=== PATIENT | male | born 1950 | race Caucasian/White ===

== ENCOUNTER 2020-05-21 11:00 | Inpatient (IN) | payer MEDICARE, MEDICAID ==
[~2020-05-21] VITALS: Ht 175.3 cm; Wt 81.0 kg
--- NOTE | 2020-05-21 14:34 | NUR ---
[facility] Addendum: 05/21/20 at 1437 by Destini Solorzano RN Amended: Links added.
[2020-05-21 15:49] VITALS: BP 135/54
[2020-05-21] MEDS: normal saline 1000ml 1,000 ML IV SCH (16:31)
[2020-05-21] MEDS ORDERED: magnesium hydroxide 30ml (MOM) UD suspension PO PRN (17:15)
[2020-05-21] MEDS ORDERED: mag hydrox/Alum hydrox/simeth 30ml oral suspension PO PRN (17:15)
[2020-05-21] MEDS ORDERED: acetaminophen 325mg tablet PO PRN (17:15)
[2020-05-21] MEDS ORDERED: ondansetron/PF 4mg/2ml inj IV PRN (17:15)
[2020-05-21] MEDS: K and/or MAG REPLACEMENT MC SCH ×2 (17:30→20:00)
[2020-05-21] MEDS ORDERED: potassium Cl 20 mEq SR tablet PO PRN ×2 (17:30)
[2020-05-21] MEDS ORDERED: magnesium Cl slow-release 64mg tablet PO PRN (17:30)
[2020-05-21] MEDS ORDERED: magnesium 4gm in 100ml NS 100 ML IV PRN (17:30)
[2020-05-21] MEDS ORDERED: potassium CL 10mEq/100ml bag 100 ML IV PRN (17:30)
[2020-05-21] MEDS ORDERED: ALBU18HF2 IH (17:32)
[2020-05-21] MEDS ORDERED: AMOX500C4 PO (17:32)
[2020-05-21] MEDS ORDERED: AZIT-63 PO (17:32)
[2020-05-21] MEDS ORDERED: PANT40TA4 PO (17:32)
[2020-05-21] MEDS ORDERED: HYDR-3972 PO (17:32)
[2020-05-21] MEDS ORDERED: SUCR1TAB PO (17:32)
[2020-05-21] MEDS ORDERED: PRE5T PO (17:32)
[2020-05-21] MEDS ORDERED: CLAR500T22 PO (17:32)
[2020-05-21] MEDS ORDERED: FLUT1AER IH (17:32)
[2020-05-21 17:35] VITALS: BP 139/84
[2020-05-21 19:09] VITALS: BP 131/64
--- NOTE | 2020-05-21 19:26 | NUR ---
Pt on 3L O2. Began c/o shortness of breath. Sat straight up in bed, (pt tends to slouch over to one side continuously, even when eating), turned the O2 up to 5L, respiratory paged. O2 went from 87% on 3L to 95% on 5L. Will continue to monitor.
[2020-05-21] MEDS ORDERED: ipratropium/albuterol 3ml nebule ONE (20:24)
[2020-05-21] MEDS: ipratropium/albuterol 3ml nebule NEB SCH (20:26)
[2020-05-21] MEDS ORDERED: albuterol 2.5 MG/3 ML nebule NEB PRN (21:55)
[2020-05-21] MEDS ORDERED: methylPREDNISolone sod succ 125mg/2ml vial IV ONE (22:00)
[2020-05-21] MEDS: levoFLOXACIN-Levaquin 750MG/D5 150 ML IV SCH (22:20)
[2020-05-21] MEDS ORDERED: ipratropium/albuterol 3ml nebule NEB SCH (23:00)
[2020-05-22] VITALS: BP 145/78
[2020-05-22] MEDS: metroNIDAZOLE-Flagyl 500mg/NS 100 ML IV SCH ×3 (00:30→15:17)
--- NOTE | 2020-05-22 01:05 | NUR ---
NPO entered for possible surgical intervention.
--- NOTE | 2020-05-22 01:16 | NUR ---
Titrated O2 back down to 3L after previous episode of difficult breathing. Is now @ 3L (baseline) @ 93%.
[2020-05-22] MEDS: methylPREDNISolone sod succ 125mg/2ml vial IV SCH ×4 (01:42→20:18)
[2020-05-22] MEDS: normal saline 1000ml 1,000 ML IV SCH ×3 (01:42→22:15)
[2020-05-22] MEDS ORDERED: albuterol 2.5 MG/3 ML nebule NEB SCH (02:00)
[2020-05-22] MEDS: ipratropium/albuterol 3ml nebule NEB SCH ×6 (03:48→23:31)
[2020-05-22 05:33] LABS: PARTIAL THROMBOPLASTIN TIME 33 SECONDS (22-32)
[2020-05-22 05:40] LABS: ALBUMIN 2.5 G/DL (3.4-5.0); ANION GAP 6 (8-16); BLOOD UREA NITROGEN 7 MG/DL (7-18); BUN/CREATININE RATIO 8.5 (5.4-32.0); CALCIUM 8.5 MG/DL (8.5-10.1); CHLORIDE 107 MMOL/L (99-107); CREATININE 0.82 MG/DL (0.60-1.10); GLUCOSE 187 MG/DL (70-104); MAGNESIUM 2.3 MG/DL (1.5-2.4); PHOSPHORUS 3.4 MG/DL (2.3-4.5); POTASSIUM 4.1 MMOL/L (3.5-5.1); SODIUM 143 MMOL/L (135-145); TOTAL CARBON DIOXIDE 30.3 MMOL/L (24-32); eGFR > 90 ML/MIN
[2020-05-22 05:58] LABS: BASOPHILS % (AUTO) 0.2 % (0-1); EOSINOPHILS % (AUTO) 0.1 % (0-6); HEMATOCRIT 29.1 % (42.0-52.0); HEMOGLOBIN 9.1 g/dl (14.0-17.9); LYMPHOCYTES # (AUTO) 0.3 X10'3 (1.1-4.8); LYMPHOCYTES % (AUTO) 6.6 % (21-51); MEAN CORPUSCULAR HEMOGLOBIN 24.3 PG (27.0-31.0); MEAN CORPUSCULAR HGB CONC 31.2 g/dL (33.0-36.5); MEAN CORPUSCULAR VOLUME 77.8 FL (78-98); MEAN PLATELET VOLUME 7.3 FL (7.4-10.4); MONOCYTES # (AUTO) 0.1 X10'3 (0-0.9); MONOCYTES % (AUTO) 1.2 % (2-12); NEUTROPHILS # (AUTO) 4.4 X10'3 (1.8-7.7); NEUTROPHILS % (AUTO) 91.9 % (42-75); PLATELET COUNT 387 X10'3 (140-440); RED BLOOD COUNT 3.73 X10'6 (4.70-6.10); RED CELL DISTRIBUTION WIDTH 28.1 % (11.5-14.5); WHITE BLOOD COUNT 4.8 X10'3 (4.5-11.0)
--- NOTE | 2020-05-22 06:04 | NUR ---
Problems reprioritized. Patient report given, questions answered & plan of care reviewed with PHYLLIS Georges.
[2020-05-22 07:00] VITALS: BP 139/84
[2020-05-22 07:06] LABS: ANISOCYTOSIS 3+; MICROCYTOSIS 1+; PLATELET ESTIMATE NORMAL
[2020-05-22 07:07] LABS: ELLIPTOCYTES FEW
[2020-05-22] MEDS: budesonide 0.5mg/2ml UD nebule IH SCH ×2 (07:18→19:59)
[2020-05-22 07:27] VITALS: BP 139/84
[2020-05-22] MEDS: pantoprazole 40 MG vial IV SCH (07:41)
[2020-05-22] MEDS: levoFLOXACIN-Levaquin 750MG/D5 150 ML IV SCH (07:49)
[2020-05-22] MEDS ORDERED: non-formulary drug (Fluticasone/Vilanterol (Breo Ellipta 100-25 Mcg INH) 1 PUFF) IH SCH (08:00)
[2020-05-22] MEDS: heparin, porcine 5000 units/ml vial SQ SCH ×2 (08:00)
[2020-05-22] MEDS: K and/or MAG REPLACEMENT MC SCH ×2 (08:50→20:00)
[2020-05-22 11:00] VITALS: BP 142/82
--- NOTE | 2020-05-22 18:23 | NUR ---
Patient in room [facility] 348. I have received report from Janeen FERGUSON and had the opportunity to ask questions and assume patient care.
--- NOTE | 2020-05-22 18:39 | NUR ---
Gave report to Lanny FERGUSON.
[2020-05-22 20:00] VITALS: BP 115/67
[2020-05-23] VITALS: BP 142/80
[2020-05-23] MEDS: normal saline 1000ml 1,000 ML IV SCH ×2 (02:57→13:03)
[2020-05-23] MEDS: ipratropium/albuterol 3ml nebule NEB SCH ×5 (04:57→19:46)
[2020-05-23 05:59] LABS: BASOPHILS % (AUTO) 0.1 % (0-1); EOSINOPHILS % (AUTO) 0 % (0-6); HEMATOCRIT 24.9 % (42.0-52.0); HEMOGLOBIN 7.9 g/dl (14.0-17.9); LYMPHOCYTES # (AUTO) 0.4 X10'3 (1.1-4.8); LYMPHOCYTES % (AUTO) 5.4 % (21-51); MEAN CORPUSCULAR HEMOGLOBIN 24.4 PG (27.0-31.0); MEAN CORPUSCULAR HGB CONC 31.7 g/dL (33.0-36.5); MEAN CORPUSCULAR VOLUME 76.9 FL (78-98); MEAN PLATELET VOLUME 7.3 FL (7.4-10.4); MONOCYTES # (AUTO) 0.3 X10'3 (0-0.9); NEUTROPHILS # (AUTO) 7.2 X10'3 (1.8-7.7); NEUTROPHILS % (AUTO) 90.5 % (42-75); PLATELET COUNT 371 X10'3 (140-440); RED BLOOD COUNT 3.23 X10'6 (4.70-6.10); RED CELL DISTRIBUTION WIDTH 27.7 % (11.5-14.5); WHITE BLOOD COUNT 7.9 X10'3 (4.5-11.0)
[2020-05-23 06:06] LABS: ALBUMIN 2.4 G/DL (3.4-5.0); ANION GAP 7 (8-16); BLOOD UREA NITROGEN 17 MG/DL (7-18); BUN/CREATININE RATIO 22.1 (5.4-32.0); CALCIUM 8.5 MG/DL (8.5-10.1); CHLORIDE 106 MMOL/L (99-107); CREATININE 0.77 MG/DL (0.60-1.10); GLUCOSE 175 MG/DL (70-104); MAGNESIUM 2.2 MG/DL (1.5-2.4); PHOSPHORUS 2.5 MG/DL (2.3-4.5); POTASSIUM 3.9 MMOL/L (3.5-5.1); SODIUM 141 MMOL/L (135-145); TOTAL CARBON DIOXIDE 28.5 MMOL/L (24-32); eGFR > 90 ML/MIN
--- NOTE | 2020-05-23 06:30 | NUR ---
Patient in room [facility] 348. I have received report from PHYLLIS Ca and had the opportunity to ask questions and assume patient care.
--- NOTE | 2020-05-23 06:45 | NUR ---
Problems reprioritized. Patient report given, questions answered & plan of care reviewed with Cecy FERGUSON.
[2020-05-23 07:14] LABS: ANISOCYTOSIS 3+; BURR CELLS 1+; MICROCYTOSIS 1+; PLATELET ESTIMATE NORMAL
[2020-05-23 07:15] LABS: ELLIPTOCYTES FEW; HYPOCHROMASIA 1+; SCHISTOCYTES FEW
[2020-05-23 07:21] VITALS: BP 126/73
[2020-05-23] MEDS: pantoprazole 40 MG vial IV SCH (07:55)
[2020-05-23] MEDS: predniSONE 20 mg tablet PO SCH (07:55)
[2020-05-23] MEDS: K and/or MAG REPLACEMENT MC SCH ×2 (08:00→21:39)
[2020-05-23] MEDS: budesonide 0.5mg/2ml UD nebule IH SCH ×2 (08:23→19:46)
[2020-05-23 11:00] VITALS: BP 130/62
[2020-05-23] MEDS: levoFLOXACIN 500mg tablet PO SCH (11:30)
[2020-05-23] MEDS ORDERED: ringers solution, lacted 1,000 ML IV ONE (17:32)
--- NOTE | 2020-05-23 18:28 | NUR ---
Problems reprioritized. Patient report given, questions answered & plan of care reviewed with PHYLLIS Shea.
--- NOTE | 2020-05-23 18:30 | NUR ---
Patient in room [facility] 348. I have received report from EL FERGUSON and had the opportunity to ask questions and assume patient care.
[2020-05-23 20:00] VITALS: BP 142/90
[2020-05-23] MEDS: potassium CL 20mEq in D5-1/2NS 1,000 ML IV SCH (21:35)
--- NOTE | 2020-05-23 23:01 | NUR ---
Pt sig other keeps calling patient several times, Pt states she is "calling him a liar" pt states he is hanging up on her, but will talk to her one more time. She called nurses station again and asked for call to be transferred to room. Addendum: 05/23/20 at 2303 by Samira Pratt RN Amended: Links added.
[2020-05-24] VITALS (14 sets, daily range): BP systolic 88–146; BP diastolic 61–88
[2020-05-24] MEDS: ipratropium/albuterol 3ml nebule NEB SCH ×7 (00:01→22:58)
[2020-05-24] MEDS: potassium CL 20mEq in D5-1/2NS 1,000 ML IV SCH ×2 (05:01→16:25)
[2020-05-24 05:36] LABS: BASOPHILS % (AUTO) 0 % (0-1); EOSINOPHILS % (AUTO) 0 % (0-6); HEMATOCRIT 25.5 % (42.0-52.0); HEMOGLOBIN 7.6 g/dl (14.0-17.9); LYMPHOCYTES # (AUTO) 0.5 X10'3 (1.1-4.8); LYMPHOCYTES % (AUTO) 4.3 % (21-51); MEAN CORPUSCULAR HEMOGLOBIN 23.2 PG (27.0-31.0); MEAN CORPUSCULAR HGB CONC 29.9 g/dL (33.0-36.5); MEAN CORPUSCULAR VOLUME 77.7 FL (78-98); MEAN PLATELET VOLUME 7.5 FL (7.4-10.4); MONOCYTES % (AUTO) 8.7 % (2-12); NEUTROPHILS # (AUTO) 10.2 X10'3 (1.8-7.7); PLATELET COUNT 402 X10'3 (140-440); RED BLOOD COUNT 3.28 X10'6 (4.70-6.10); RED CELL DISTRIBUTION WIDTH 28.2 % (11.5-14.5); WHITE BLOOD COUNT 11.8 X10'3 (4.5-11.0)
[2020-05-24 05:47] LABS: ALBUMIN 2.4 G/DL (3.4-5.0); ANION GAP 2 (8-16); BLOOD UREA NITROGEN 15 MG/DL (7-18); BUN/CREATININE RATIO 20.5 (5.4-32.0); CALCIUM 8.5 MG/DL (8.5-10.1); CHLORIDE 108 MMOL/L (99-107); CREATININE 0.73 MG/DL (0.60-1.10); GLUCOSE 171 MG/DL (70-104); MAGNESIUM 2.5 MG/DL (1.5-2.4); PARTIAL THROMBOPLASTIN TIME 28 SECONDS (22-32); PHOSPHORUS 2.4 MG/DL (2.3-4.5); POTASSIUM 4.4 MMOL/L (3.5-5.1); SODIUM 141 MMOL/L (135-145); TOTAL CARBON DIOXIDE 31.3 MMOL/L (24-32); eGFR > 90 ML/MIN
[2020-05-24] MEDS ORDERED: famotidine 20mg tablet PO ONE (06:00)
--- NOTE | 2020-05-24 06:08 | NUR ---
Problems reprioritized. Patient report given, questions answered & plan of care reviewed with EL FERGUSON.
--- NOTE | 2020-05-24 06:09 | NUR ---
Patient in room [facility] 348. I have received report from PHYLLIS Shea and had the opportunity to ask questions and assume patient care.
[2020-05-24] MEDS ORDERED: BUPIVAcaine/PF 2.5 mg/ml (0.25%) 30ml vial ONE (06:37)
[2020-05-24] MEDS ORDERED: LIDOcaine 1% 30ml preserv. free vial ONE (06:37)
[2020-05-24] MEDS: budesonide 0.5mg/2ml UD nebule IH SCH ×2 (07:05→18:53)
[2020-05-24] MEDS ORDERED: LIDOcaine 1% (10mg/ml) 2ml vial ONE (07:20)
[2020-05-24 07:32] LABS: ANISOCYTOSIS 3+; MICROCYTOSIS 1+; PLATELET ESTIMATE NORMAL
[2020-05-24 07:33] LABS: HYPOCHROMASIA 2+
[2020-05-24] MEDS: pantoprazole 40 MG vial IV SCH (07:46)
[2020-05-24] MEDS: predniSONE 20 mg tablet PO SCH (07:46)
[2020-05-24] MEDS: K and/or MAG REPLACEMENT MC SCH ×2 (08:00→20:00)
[2020-05-24] MEDS ORDERED: BUPIVAcaine/PF 2.5 mg/ml (0.25%) 30ml vial IJ ONE (08:18)
--- NOTE | 2020-05-24 09:07 | NUR ---
Report given to Marjorie in recovery, Pt to be tx to OR.
[2020-05-24] MEDS ORDERED: ringers solution, lacted 1,000 ML IV SCH ×2 (09:41→15:04)
[2020-05-24] MEDS ORDERED: morphine 2 MG/ML inj. syringe IV PRN (09:45)
[2020-05-24] MEDS ORDERED: fentaNYL/PF 50MCG/1 ML 2ML syringe IV PRN ×2 (09:45)
[2020-05-24] MEDS ORDERED: hydrALAZINE 20mg/ml inj. IV PRN (09:45)
[2020-05-24] MEDS ORDERED: morphine 4 MG/ML inj SYRINge IV PRN (09:45)
[2020-05-24] MEDS ORDERED: ondansetron/PF 4mg/2ml inj IV PRN ×3 (09:45→18:05)
[2020-05-24] MEDS ORDERED: labetalol 20mg/4ml (5mg/ml) syringe IV PRN (09:45)
[2020-05-24] MEDS ORDERED: MIDAZolam 5mg/5ml vial ONE (09:49)
[2020-05-24] MEDS ORDERED: ondansetron/PF 4mg/2ml inj ONE (09:50)
[2020-05-24] MEDS ORDERED: rocuronium 10mg/ml inj IV ONE ×4 (09:50→16:41)
[2020-05-24] MEDS ORDERED: fentaNYL /PF 50mcg/ml 5ml ampule ONE (09:50)
[2020-05-24] MEDS ORDERED: LIDOcaine 2% (20mg/ml) 5ml vial ONE (09:50)
[2020-05-24] MEDS ORDERED: propofol inj 20 ML IV ONE (09:50)
[2020-05-24] MEDS ORDERED: phenylephrine 10mg/ml inj. ONE ×2 (09:59→11:49)
[2020-05-24] MEDS ORDERED: glycopyrrolate 0.2mg/ml inj ONE (09:59)
[2020-05-24] MEDS ORDERED: dexamethasone sod phosphate 10mg/ml inj ONE (09:59)
[2020-05-24] MEDS ORDERED: neostigmine methylsulfate 1 MG/ML 10ml vial ONE (09:59)
[2020-05-24] MEDS ORDERED: sevoflurane 250ml liquid IH ONE (09:59)
[2020-05-24] MEDS ORDERED: albumin (Human) 5% 250ml 250 ML IV ONE ×4 (10:55→13:24)
[2020-05-24] MEDS: levoFLOXACIN 500mg tablet PO SCH (11:00)
[2020-05-24] MEDS ORDERED: ceFAZolin 1000mg inj ONE ×2 (11:01)
--- NOTE | 2020-05-24 11:20 | NUR ---
Pt under care of OR/Recovery and will be reassigned a floor nurse at completion when determined level of care needed.
--- NOTE | 2020-05-24 11:58 | NUR ---
Unable to administer SVN tx. Patient in surgery
[2020-05-24] MEDS ORDERED: fentaNYL/PF 50MCG/1 ML 2ML syringe ONE (13:22)
[2020-05-24] MEDS ORDERED: insulin regular, human U-100 3ml vial - multi-dose ONE (14:42)
[2020-05-24 14:45] LABS: ISTAT ANION GAP 10 (8-12); ISTAT BUN 15 mg/dL (6-19); ISTAT CL 102 mmol/L (99-107); ISTAT CREATININE 0.7 mg/dL (0.8-1.3); ISTAT GLUCOSE 271 mg/dL (70-104); ISTAT HGB 7.8 g/dl (14.0-18.0); ISTAT Hct 23 %PCV (42-52); ISTAT IONIZED CALCIUM 1.16 mmol/L (1.03-1.32); ISTAT K 4.9 mmol/L (3.5-5.1); ISTAT NA 137 mmol/L (135-145); ISTAT TOTAL CO2 25 mmol/L (24-32); ISTAT eGFR > 90 ML/MIN; POC BUN/CREATININE RATIO 21.4 (5.4-32.0)
[2020-05-24] MEDS: NORepinephrine 8mg/ 250ml NS 250 ML IV SCH ×2 (15:05→21:31)
[2020-05-24] MEDS ORDERED: NORepinephrine 8 MG in NS 250ml IV soln IV SCH (15:20)
[2020-05-24] MEDS ORDERED: MIDAZolam inj 50 MG in normal saline 50ml IV soln 40 ML IV SCH (15:55)
--- NOTE | 2020-05-24 16:16 | NUR ---
1500 SVN Treatment not given. Patient in surgery.
[2020-05-24] MEDS ORDERED: ceFOXitin 1000 MG inj ONE (16:49)
--- NOTE | 2020-05-24 17:53 | NUR ---
Received from OR via ICU BED AND IN THE ICU, accompanied by Anesthesiologist LORIN and report given by Anesthesiolgist. PATIENT INTUBATED WITH 2 CHEST TUBES PRESENT, LEFT CHEST TUBE IS WITH 500CC OF BLOOD IN ATRIUM AND RIGHT CHEST TUBE WITH NONE. TRIPLE LUMEN CENTRAL LINE PRESENT, LESTER WITH CLEAR YELLOW URINE PRESENT IN ATRIUM UROSTOMY TUBE. PATIENT WITH FRANCISCA DRAIN TO ABDOMEN WELL. ART LINE IN RIGHT UE. SCDS DONNED. VENTILATED. VSS AT THIS TIME. RNX2 PRESENT TO ASSIST IN SET UP OF PATIENT. Addendum: 05/24/20 at 1820 by Evangelist Brown RN, RN Amended: Links added. Addendum: 05/24/20 at 1821 by Evangelist Brown RN, RN ADDENDUM. LESTER CATHETER IN PLACE, PEG TUBE TO ABDOMEN PRESENT NOT UROSTOMY TUBE.
[2020-05-24] MEDS ORDERED: naloxone 0.4 mg/ml inj IV PRN (18:05)
[2020-05-24] MEDS: HYDROmorphone/NS 1 mg/ml CADD 50 ML IV SCH ×4 (18:05→23:00)
[2020-05-24] MEDS ORDERED: CADD PCA waste documentation MC PRN (18:05)
[2020-05-24 18:20] LABS: ABG BASE EXCESS -3.6 mmol/L (-2.0-2.0); ABG HCO3 22.6 mmol/L (22.0-26.0); ABG OXYGEN SATURATION 99.4 % (94-97); ABG PCO2 (T) 43.5 mmHg (35.0-48.0); ABG PO2 (T) 262.4 mmHg (75.0-100.0); FCOHb 0.4 % (0.0-3.9); FMetHb 0.2 % (0.0-1.5); FO2Hb 98.8 % (94-97); PATIENT TEMPERATURE 35.6; PEEP 5 cm H2O; RESPIRATORY RATE 12 b/min; TIDAL VOLUME 650 mL; TOTAL HEMOGLOBIN 9.5 G/dl (14.0-18.0)
--- NOTE | 2020-05-24 18:33 | NUR ---
PATIENTS PHYLLIS MOURA PRESENT TO HEAR REPORT FROM MD PADGETT. VSS AT THIS TIME. ALL LINES STILL INTACT AT THIS TIME. INTUBATED. ABGS DONE, RT ADJUSTED VENT SETTINGS. CHEST TUBES MAINTAIN SAME AMOUNTS OF DRAINAGE, LEFT WITH APPROXIMATELY 550 CC IN ATRIUM AND RIGHT SIDE HAS NO PRESENT DRAINAGE. PATIENT CENTRAL LINE TO RIGHT OF NECK IS PATENT AND ART LINE AND 20G PIV IN RIGHT UE ARE ALSO PATENT AND RUNNING SEDATION AND PAIN MEDS. SCDS DONNED, PEG TUBE INTACT. FRANCISCA TO ABDOMEN STILL WITH SEROSANGUENOUS DRAINAGE PRESENT AND BULB IS MAINTAINING SUCTION. CARE TURNED OVER TO ZENY FERGUSON IN THE ICU. Addendum: 05/24/20 at 1839 by Evangelist Cruz - PHYLLIS RN Amended: Links added.
[2020-05-24] MEDS: lactobacillus rhamnosus 10,000 MMU CELLS/CAPSULE PO SCH (19:39)
[2020-05-24] MEDS: levoFLOXACIN-Levaquin 500mg/D5 100 ML IV SCH (21:12)
[2020-05-24 21:49] LABS: HEMATOCRIT 29.5 % (42.0-52.0); HEMOGLOBIN 9.2 g/dl (14.0-17.9); MEAN CORPUSCULAR HEMOGLOBIN 24.3 PG (27.0-31.0); MEAN CORPUSCULAR HGB CONC 31.1 g/dL (33.0-36.5); MEAN CORPUSCULAR VOLUME 78.2 FL (78-98); MEAN PLATELET VOLUME 7.5 FL (7.4-10.4); PLATELET COUNT 513 X10'3 (140-440); RED BLOOD COUNT 3.77 X10'6 (4.70-6.10); RED CELL DISTRIBUTION WIDTH 27.7 % (11.5-14.5)
[2020-05-24 21:59] LABS: ALBUMIN 2.5 G/DL (3.4-5.0); ANION GAP 8 (8-16); BLOOD UREA NITROGEN 22 MG/DL (7-18); BUN/CREATININE RATIO 16.8 (5.4-32.0); CALCIUM 7.4 MG/DL (8.5-10.1); CHLORIDE 106 MMOL/L (99-107); CREATININE 1.31 MG/DL (0.60-1.10); GLUCOSE 232 MG/DL (70-104); POTASSIUM 5.9 MMOL/L (3.5-5.1); SODIUM 138 MMOL/L (135-145); TOTAL CARBON DIOXIDE 23.6 MMOL/L (24-32); eGFR 54 ML/MIN
[2020-05-25] VITALS (23 sets, daily range): BP systolic 93–122; BP diastolic 60–87
[2020-05-25] MEDS: HYDROmorphone/NS 1 mg/ml CADD 50 ML IV SCH ×4 (01:00→07:00)
[2020-05-25] MEDS: potassium CL 20mEq in D5-1/2NS 1,000 ML IV SCH (02:25)
[2020-05-25] MEDS: ipratropium/albuterol 3ml nebule NEB SCH ×6 (02:59→22:58)
[2020-05-25 03:07] LABS: BASOPHILS % (AUTO) 0.1 % (0-1); EOSINOPHILS % (AUTO) 0 % (0-6); HEMATOCRIT 31.1 % (42.0-52.0); HEMOGLOBIN 9.5 g/dl (14.0-17.9); LYMPHOCYTES # (AUTO) 0.4 X10'3 (1.1-4.8); LYMPHOCYTES % (AUTO) 4.5 % (21-51); MEAN CORPUSCULAR HGB CONC 30.5 g/dL (33.0-36.5); MEAN CORPUSCULAR VOLUME 78.9 FL (78-98); MEAN PLATELET VOLUME 7.8 FL (7.4-10.4); MONOCYTES # (AUTO) 1.3 X10'3 (0-0.9); NEUTROPHILS # (AUTO) 6.7 X10'3 (1.8-7.7); NEUTROPHILS % (AUTO) 80.4 % (42-75); PLATELET COUNT 431 X10'3 (140-440); RED BLOOD COUNT 3.94 X10'6 (4.70-6.10); RED CELL DISTRIBUTION WIDTH 27.8 % (11.5-14.5); WHITE BLOOD COUNT 8.3 X10'3 (4.5-11.0)
[2020-05-25 03:16] LABS: ABG HCO3 20.5 mmol/L (22.0-26.0); ABG OXYGEN SATURATION 98.2 % (94-97); ABG PCO2 (T) 35.3 mmHg (35.0-48.0); ABG PO2 (T) 115.1 mmHg (75.0-100.0); FCOHb 0.7 % (0.0-3.9); FMetHb 0.3 % (0.0-1.5); FO2Hb 97.2 % (94-97); PATIENT TEMPERATURE 37.2; PEEP 10 cm H2O; RESPIRATORY RATE 12 b/min; TIDAL VOLUME 650 mL; TOTAL HEMOGLOBIN 10.4 G/dl (14.0-18.0)
[2020-05-25] MEDS ORDERED: dextrose ORAL solution 15 GM/59 ML bottle PO PRN ×2 (03:25)
[2020-05-25] MEDS ORDERED: glucagon, human recombinant 1mg kit SUBCUT PRN (03:25)
[2020-05-25] MEDS ORDERED: MESSAGE TO PHARMACY PO ONE (03:25)
[2020-05-25 03:30] LABS: ALANINE AMINOTRANSFERASE 58 U/L (12-78); ALBUMIN 2.3 G/DL (3.4-5.0); ALBUMIN/GLOBULIN RATIO 0.8 (1.1-1.5); ALKALINE PHOSPHATASE 36 IU/L (46-116); ANION GAP 6 (8-16); ASPARTATE AMINO TRANSFERASE 52 U/L (10-37); BILIRUBIN,DIRECT 0.3 MG/DL (0-0.3); BILIRUBIN,TOTAL 0.6 MG/DL (0.1-1.0); BLOOD UREA NITROGEN 26 MG/DL (7-18); BUN/CREATININE RATIO 15.3 (5.4-32.0); CALCIUM 7.4 MG/DL (8.5-10.1); CHLORIDE 107 MMOL/L (99-107); GLUCOSE 213 MG/DL (70-104); MAGNESIUM 2.1 MG/DL (1.5-2.4); PHOSPHORUS 3.5 MG/DL (2.3-4.5); SODIUM 137 MMOL/L (135-145); TOTAL CARBON DIOXIDE 24.2 MMOL/L (24-32); TOTAL PROTEIN 5.1 G/DL (6.4-8.2); eGFR 40 ML/MIN
[2020-05-25 03:32] LABS: POTASSIUM 6.1 MMOL/L (3.5-5.1)
[2020-05-25] MEDS ORDERED: albuterol 2.5 MG/3 ML nebule CONTNEB STA (03:32)
[2020-05-25] MEDS ORDERED: calcium chloride 100 MG/1 ML inj IV ONE (03:35)
[2020-05-25] MEDS ORDERED: insulin regular, human 10 units/0.1 ml syringe IV ONE (03:35)
[2020-05-25] MEDS ORDERED: dextrose 50%-water 50ml dispensing syringe IV ONE ×2 (03:35→17:05)
[2020-05-25 03:38] LABS: PLATELET ESTIMATE NORMAL; TOTAL CELLS COUNTED 100
[2020-05-25 03:39] LABS: ACANTHOCYTES 1+; ANISOCYTOSIS 3+; ELLIPTOCYTES 1+; HYPOCHROMASIA 2+; MICROCYTOSIS 1+
[2020-05-25] MEDS ORDERED: insulin regular, human U-100 3ml vial - multi-dose IV ONE ×2 (03:45→17:05)
[2020-05-25] MEDS ORDERED: albumin (human) 25% 100 ML IV solution IV ONE (04:55)
[2020-05-25] MEDS ORDERED: dextrose 5%-1/2 normal saline 1,000 ML IV SCH (04:55)
[2020-05-25] MEDS: NORepinephrine 8mg/ 250ml NS 250 ML IV SCH ×5 (05:21→22:37)
[2020-05-25 06:29] LABS: ALBUMIN 2.7 G/DL (3.4-5.0); ANION GAP 9 (8-16); BLOOD UREA NITROGEN 29 MG/DL (7-18); BUN/CREATININE RATIO 15.3 (5.4-32.0); CALCIUM 7.9 MG/DL (8.5-10.1); CHLORIDE 107 MMOL/L (99-107); CREATININE 1.89 MG/DL (0.60-1.10); GLUCOSE 256 MG/DL (70-104); PHOSPHORUS 3.8 MG/DL (2.3-4.5); SODIUM 137 MMOL/L (135-145); TOTAL CARBON DIOXIDE 20.8 MMOL/L (24-32); eGFR 35 ML/MIN
[2020-05-25] MEDS: lactobacillus rhamnosus 10,000 MMU CELLS/CAPSULE PO SCH ×2 (07:28→20:00)
[2020-05-25] MEDS: K and/or MAG REPLACEMENT MC SCH ×2 (07:29→20:00)
[2020-05-25] MEDS: budesonide 0.5mg/2ml UD nebule IH SCH ×2 (07:53→18:58)
[2020-05-25] MEDS: levoFLOXACIN-Levaquin 500mg/D5 100 ML IV SCH (07:55)
[2020-05-25] MEDS: pantoprazole 40 MG vial IV SCH (07:55)
[2020-05-25] MEDS: methylPREDNISolone sod succ/PF 40mg inj. IV SCH (07:56)
[2020-05-25] MEDS ORDERED: enoxaparin 40mg/0.4ml syringe SQ SCH (08:00)
[2020-05-25] MEDS ORDERED: furosemide 40mg/4ml inj IV ONE (08:00)
[2020-05-25] MEDS: FENTANYL-0.9 % NACL/PF 100 ML IV PRN (08:15)
[2020-05-25] MEDS: midazolam 100mg in NS 100 ML INFUSION IV PRN (08:17)
[2020-05-25] MEDS: predniSONE 20 mg tablet PO SCH (08:30)
[2020-05-25] MEDS: sodium chloride 0.45% 1,000 ML IV SCH ×2 (11:16→20:45)
[2020-05-25 11:41] LABS: % IRON SATURATION 6 % (11-46); IRON 7 UG/DL (53-167); TOTAL IRON BINDING CAPACITY 127 UG/DL (259-388)
[2020-05-25 11:43] LABS: FERRITIN 157 NG/ML (26-388)
--- NOTE | 2020-05-25 12:06 | NUR ---
Patient is intubated s/p robotic lap converted to open repair of diaphragmatic hernia, transverse colectomy, G-tube placement, lysis of adhesions, and chest tube placements. Per MD note admitted with colon CA, and is intubated r/t COPD and acute respiratory failure. 1. IF TPN, recommend continuous 3:1 TPN using Clinimix E 03/21 with 100 ml 20% intralipids at goal rate of 100 ml/hr will provide total volume of 2400 ml, 2239 cals, 114 g protein, and 3.85 mg/kg/min CHO loading. 2. IF TPN prealbumin and TG q thursday and 3. wt per rx Addendum: 05/25/20 at [address] Amended: Links added.
[2020-05-25] MEDS: iron sucrose complex injection 200 MG in normal saline 100ml IV soln 100 ML IV SCH (12:56)
[2020-05-25] MEDS ORDERED: albuterol 2.5 MG/3 ML nebule NEB ONE (17:10)
[2020-05-25] MEDS: amiodarone/D5 360MG/200ML BAG 200 ML IV SCH ×2 (17:42→22:19)
--- NOTE | 2020-05-25 18:34 | NUR ---
Heart Rate in 180-200s with SBP in 80. This happened around 1720. Called Dr. Horan, Started pt on Amiodarone drip, Chest x-ray done. Also administered 10unit Insulin with D50 for potassium of 5.6. Dr Alarcon informed via phone. Report given to Junior (RN).
[2020-05-25 22:18] LABS: ALBUMIN 2.2 G/DL (3.4-5.0); ANION GAP 8 (8-16); BLOOD UREA NITROGEN 40 MG/DL (7-18); BUN/CREATININE RATIO 14.9 (5.4-32.0); CALCIUM 7.5 MG/DL (8.5-10.1); CHLORIDE 105 MMOL/L (99-107); CREATININE 2.69 MG/DL (0.60-1.10); GLUCOSE 299 MG/DL (70-104); POTASSIUM 5.5 MMOL/L (3.5-5.1); SODIUM 134 MMOL/L (135-145); TOTAL CARBON DIOXIDE 21.3 MMOL/L (24-32); eGFR 24 ML/MIN
[2020-05-25] MEDS: insulin Lispro (HumaLOG) vial - multi-dose SQ SCH (23:16)
[2020-05-25] MEDS: insulin glargine (Lantus) pen - multi-dose SQ SCH (23:18)
[2020-05-26] VITALS (24 sets, daily range): BP systolic 78–129; BP diastolic 40–72
[2020-05-26] MEDS: mineral oil/petrolatum ophthal oint EACHEYE SCH ×4 (02:00→20:35)
[2020-05-26] MEDS: insulin Lispro (HumaLOG) vial - multi-dose SQ SCH ×2 (02:25→08:46)
[2020-05-26] MEDS: ipratropium/albuterol 3ml nebule NEB SCH ×6 (03:11→23:00)
[2020-05-26 03:12] LABS: BASOPHILS % (AUTO) 0.1 % (0-1); EOSINOPHILS % (AUTO) 0 % (0-6); HEMATOCRIT 28.2 % (42.0-52.0); HEMOGLOBIN 8.5 g/dl (14.0-17.9); LYMPHOCYTES # (AUTO) 1.9 X10'3 (1.1-4.8); LYMPHOCYTES % (AUTO) 11.2 % (21-51); MEAN CORPUSCULAR HEMOGLOBIN 23.7 PG (27.0-31.0); MEAN CORPUSCULAR HGB CONC 30.1 g/dL (33.0-36.5); MEAN CORPUSCULAR VOLUME 78.6 FL (78-98); MEAN PLATELET VOLUME 8.5 FL (7.4-10.4); MONOCYTES # (AUTO) 1.9 X10'3 (0-0.9); MONOCYTES % (AUTO) 11.2 % (2-12); NEUTROPHILS # (AUTO) 12.9 X10'3 (1.8-7.7); NEUTROPHILS % (AUTO) 77.5 % (42-75); PLATELET COUNT 329 X10'3 (140-440); RED BLOOD COUNT 3.58 X10'6 (4.70-6.10); RED CELL DISTRIBUTION WIDTH 27.4 % (11.5-14.5); WHITE BLOOD COUNT 16.7 X10'3 (4.5-11.0)
[2020-05-26 03:25] LABS: ALBUMIN 2.1 G/DL (3.4-5.0); ANION GAP 9 (8-16); BLOOD UREA NITROGEN 42 MG/DL (7-18); BUN/CREATININE RATIO 14.2 (5.4-32.0); CALCIUM 7.5 MG/DL (8.5-10.1); CHLORIDE 105 MMOL/L (99-107); CREATININE 2.95 MG/DL (0.60-1.10); GLUCOSE 247 MG/DL (70-104); MAGNESIUM 2.1 MG/DL (1.5-2.4); PHOSPHORUS 4.1 MG/DL (2.3-4.5); POTASSIUM 5.3 MMOL/L (3.5-5.1); SODIUM 136 MMOL/L (135-145); TOTAL CARBON DIOXIDE 22.4 MMOL/L (24-32); eGFR 21 ML/MIN
[2020-05-26] MEDS: midazolam 100mg in NS 100 ML INFUSION IV PRN ×2 (03:29→20:34)
[2020-05-26] MEDS: FENTANYL-0.9 % NACL/PF 100 ML IV PRN ×2 (03:29→20:35)
[2020-05-26] MEDS: NORepinephrine 8mg/ 250ml NS 250 ML IV SCH ×5 (03:31→22:12)
[2020-05-26] MEDS ORDERED: albumin (human) 25% 100 ML IV solution IV ONE (04:10)
--- NOTE | 2020-05-26 04:15 | NUR ---
Patient's Blood pressure started to become labile going from a SBP of 120 to around 77 every 5 minutes. November was notified. CBC showed elevated bands, 200 ml of Albumin 25% was given. November also ordered 2 sets of Blood cultures. a series of urine test and a sputum culture.
[2020-05-26 04:33] LABS: ACANTHOCYTES 2+; ANISOCYTOSIS 3+; MICROCYTOSIS 1+; NUCLEATED RED BLOOD CELLS 3 /100WBC (0-0); PLATELET ESTIMATE NORMAL; POLYCHROMASIA FEW; TOTAL CELLS COUNTED 100
[2020-05-26 04:34] LABS: ELLIPTOCYTES FEW; LARGE PLATELETS FEW
[2020-05-26 04:50] LABS: ABG BASE EXCESS -8.5 mmol/L (-2.0-2.0); ABG HCO3 16.3 mmol/L (22.0-26.0); ABG OXYGEN SATURATION 97.2 % (94-97); ABG PCO2 (T) 31.2 mmHg (35.0-48.0); ABG PO2 (T) 101.9 mmHg (75.0-100.0); FCOHb 0.7 % (0.0-3.9); FMetHb 0.3 % (0.0-1.5); FO2Hb 96.2 % (94-97); PATIENT TEMPERATURE 37.3; PEEP 10 cm H2O; RESPIRATORY RATE 12 b/min; TIDAL VOLUME 650 mL; TOTAL HEMOGLOBIN 8.7 G/dl (14.0-18.0)
--- NOTE | 2020-05-26 05:00 | NUR ---
[facility] I have received report from Paula FERGUSON and had the opportunity to ask questions and assume patient care. PT was given IV aAmiododrone fro Taylor a fib, Pt has now converted to sinus rhythm. Addendum: 05/26/20 at 0546 by Rudolph Burns RN Note meant for 1899 on 05/25
[2020-05-26] MEDS: budesonide 0.5mg/2ml UD nebule IH SCH ×2 (07:03→18:54)
[2020-05-26] MEDS: K and/or MAG REPLACEMENT MC SCH ×2 (08:00→20:00)
[2020-05-26] MEDS: pantoprazole 40 MG vial IV SCH (08:32)
[2020-05-26] MEDS: vancomycin/NS 1 GM ADD-VANTAGE 250 ML IV SCH (08:32)
[2020-05-26] MEDS: lactobacillus rhamnosus 10,000 MMU CELLS/CAPSULE PO SCH ×2 (08:33→20:00)
[2020-05-26] MEDS: methylPREDNISolone sod succ/PF 40mg inj. IV SCH (08:33)
[2020-05-26] MEDS: piperacillin/tazo 3.375gm/50ml 50 ML IV SCH ×2 (08:36→16:13)
[2020-05-26] MEDS: iron sucrose complex injection 200 MG in normal saline 100ml IV soln 100 ML IV SCH (08:36)
[2020-05-26 08:45] LABS: CLARITY,URINE CLOUDY (Clear); COLOR,URINE BROWN (Yellow); GLUCOSE, URINE NEGATIVE (Neg); KETONES,URINE NEGATIVE (Neg); LEUKOCYTE ESTERASE ,URINE TRACE (Neg); NITRITES, URINE NEGATIVE (Neg); OCCULT BLOOD,URINE LARGE (Neg); PROTEIN,URINE 100 mg/dl (Neg); UROBILINOGEN,URINE 0.2 E.U/dL (0.2-1.0)
[2020-05-26 08:54] LABS: UA COLLECTION TYPE FOLEY CATH
[2020-05-26 08:55] LABS: BACTERIA,URINE FEW /HPF (Neg); MUCUS STRANDS FEW /LPF (Neg); RBC,URINE TNTC /HPF (0-2); SODIUM,URINE RANDOM < 15 MEQ/L; SQUAMOUS EPITHELIAL CELL,UR FEW /LPF (FEW)
[2020-05-26 08:56] LABS: AMORPHOUS URATES 1+; SPERM FEW /HPF (NEGATIVE); TRANSITIONAL EPI CELLS,URINE FEW /HPF
[2020-05-26] MEDS: amiodarone/D5 360MG/200ML BAG 200 ML IV SCH ×2 (09:00→17:15)
[2020-05-26 09:30] LABS: UA EOSINOPHILS NO EOS /HPF
[2020-05-26] MEDS ORDERED: sodium bicarbonate (8.4%) inj. 150 MEQ in dextrose 5%-water 1,000 ML IV SCH (09:30)
[2020-05-26] MEDS: sodium bicarbonate (8.4%) inj. 150 MEQ in dextrose 5%-water 1,000 ML IV SCH ×2 (11:00→22:15)
[2020-05-26 12:28] LABS: ALBUMIN 2.5 G/DL (3.4-5.0); ANION GAP 10 (8-16); BLOOD UREA NITROGEN 43 MG/DL (7-18); BUN/CREATININE RATIO 18.1 (5.4-32.0); CALCIUM 7.5 MG/DL (8.5-10.1); CHLORIDE 105 MMOL/L (99-107); CREATININE 2.37 MG/DL (0.60-1.10); GLUCOSE 215 MG/DL (70-104); PHOSPHORUS 3.5 MG/DL (2.3-4.5); SODIUM 136 MMOL/L (135-145); TOTAL CARBON DIOXIDE 21.2 MMOL/L (24-32); eGFR 27 ML/MIN
--- NOTE | 2020-05-26 15:31 | NUR ---
TF consult 05/26: Pt remains intubated. To start trickle feeds per MD. Recommend using Vital AF at 30 mL/hr while receiving trickle tube feeds and advance to goal rate of 80 mL/hr once MD okays advancing TF rate to meet patient's estimated nutrient needs. Will continue to follow closely. Patient is intubated s/p robotic lap converted to open repair of diaphragmatic hernia, transverse colectomy, G-tube placement, lysis of adhesions, and chest tube placements. Per MD note admitted with colon CA, and is intubated r/t COPD and acute respiratory failure. Recommendations: 1) Trickle TF per MD using Vital AF at 30 mL/hr to provide: 720 mL total volume/day, 864 kcal, 54 g protein, and 584 mL water 2) Once MD okays advancing TF goal rate, recommend advancing by 20 mL Q8H as tolerated to goal rate of 80 mL/hr to provide: 1920 mL total volume/day, 2304 kcal, 144 g protein, and 1557 mL water 3) Prealbumin q Thursday and 4) Daily weights Addendum: 05/26/20 at [address] Amended: Links added.
[2020-05-26] MEDS ORDERED: mag hydrox/Alum hydrox/simeth 30ml oral suspension GT PRN (15:43)
[2020-05-26] MEDS ORDERED: acetaminophen 325mg/10.15ml oral unit dose solution GT PRN (15:43)
[2020-05-26] MEDS ORDERED: dextrose ORAL solution 15 GM/59 ML bottle GT PRN ×2 (15:44)
[2020-05-26] MEDS ORDERED: magnesium hydroxide 30ml (MOM) UD suspension GT PRN (15:44)
[2020-05-26] MEDS: insulin regular, human U-100 3ml vial - multi-dose SQ SCH ×2 (16:12→21:39)
[2020-05-26] MEDS: insulin glargine (Lantus) pen - multi-dose SQ SCH (21:41)
[2020-05-27] VITALS (28 sets, daily range): BP systolic 90–128; BP diastolic 47–68
[2020-05-27] MEDS: piperacillin/tazo 3.375gm/50ml 50 ML IV SCH ×4 (00:16→23:12)
[2020-05-27] MEDS: mineral oil/petrolatum ophthal oint EACHEYE SCH ×4 (02:00→19:27)
[2020-05-27] MEDS: NORepinephrine 8mg/ 250ml NS 250 ML IV SCH ×2 (03:09→16:19)
[2020-05-27] MEDS: ipratropium/albuterol 3ml nebule NEB SCH ×6 (03:13→23:14)
[2020-05-27 03:25] LABS: EOSINOPHILS % (AUTO) 0 % (0-6); MEAN CORPUSCULAR HGB CONC 31.6 g/dL (33.0-36.5); MONOCYTES # (AUTO) 1.5 X10'3 (0-0.9); RED BLOOD COUNT 2.76 X10'6 (4.70-6.10)
[2020-05-27] MEDS: insulin regular, human U-100 3ml vial - multi-dose SQ SCH ×4 (03:25→20:39)
[2020-05-27 03:28] LABS: BASOPHILS % (AUTO) 0.1 % (0-1); LYMPHOCYTES # (AUTO) 0.4 X10'3 (1.1-4.8); LYMPHOCYTES % (AUTO) 3.2 % (21-51); MEAN CORPUSCULAR HEMOGLOBIN 24.1 PG (27.0-31.0); MEAN CORPUSCULAR VOLUME 76.2 FL (78-98); MONOCYTES % (AUTO) 11.4 % (2-12); NEUTROPHILS # (AUTO) 11.4 X10'3 (1.8-7.7); NEUTROPHILS % (AUTO) 85.3 % (42-75); PLATELET COUNT 290 X10'3 (140-440); RED CELL DISTRIBUTION WIDTH 27.8 % (11.5-14.5); WHITE BLOOD COUNT 13.4 X10'3 (4.5-11.0)
[2020-05-27 03:38] LABS: HEMATOCRIT 21.1 % (42.0-52.0); HEMOGLOBIN 6.7 g/dl (14.0-17.9)
[2020-05-27 03:46] LABS: ALANINE AMINOTRANSFERASE 19 U/L (12-78); ALBUMIN 2.2 G/DL (3.4-5.0); ALBUMIN/GLOBULIN RATIO 0.8 (1.1-1.5); ALKALINE PHOSPHATASE 45 IU/L (46-116); ANION GAP 10 (8-16); ASPARTATE AMINO TRANSFERASE 18 U/L (10-37); BILIRUBIN,TOTAL 0.7 MG/DL (0.1-1.0); BLOOD UREA NITROGEN 38 MG/DL (7-18); CALCIUM 7.4 MG/DL (8.5-10.1); CHLORIDE 104 MMOL/L (99-107); CREATININE 1.81 MG/DL (0.60-1.10); GLUCOSE 291 MG/DL (70-104); MAGNESIUM 2.3 MG/DL (1.5-2.4); PHOSPHORUS 2.1 MG/DL (2.3-4.5); POTASSIUM 3.9 MMOL/L (3.5-5.1); SODIUM 136 MMOL/L (135-145); TOTAL CARBON DIOXIDE 22.5 MMOL/L (24-32); TOTAL PROTEIN 4.9 G/DL (6.4-8.2); eGFR 37 ML/MIN
--- NOTE | 2020-05-27 04:06 | NUR ---
Reviewed with Oncall Nurse practitioner reviewed low hemiglobin and hematocrit, awaiting orders
[2020-05-27 04:21] LABS: ACANTHOCYTES 3+; ANISOCYTOSIS 3+; MICROCYTOSIS 1+; NUCLEATED RED BLOOD CELLS 1 /100WBC (0-0); PLATELET ESTIMATE NORMAL; POLYCHROMASIA 1+; TOTAL CELLS COUNTED 100
[2020-05-27 04:22] LABS: ELLIPTOCYTES FEW; LARGE PLATELETS FEW
[2020-05-27 04:45] LABS: ABG BASE EXCESS -3.7 mmol/L (-2.0-2.0); ABG HCO3 20.4 mmol/L (22.0-26.0); ABG OXYGEN SATURATION 96.3 % (94-97); ABG PCO2 (T) 33.2 mmHg (35.0-48.0); ABG PO2 (T) 91.1 mmHg (75.0-100.0); FCOHb 0.9 % (0.0-3.9); FMetHb 0.3 % (0.0-1.5); FO2Hb 95.1 % (94-97); PATIENT TEMPERATURE 37.2; PEEP 10 cm H2O; RESPIRATORY RATE 12 b/min; TIDAL VOLUME 650 mL; TOTAL HEMOGLOBIN 7.2 G/dl (14.0-18.0)
[2020-05-27] MEDS: amiodarone/D5 360MG/200ML BAG 200 ML IV SCH ×5 (06:01→16:19)
[2020-05-27] MEDS: budesonide 0.5mg/2ml UD nebule IH SCH ×2 (06:52→18:53)
[2020-05-27] MEDS: sodium bicarbonate (8.4%) inj. 150 MEQ in dextrose 5%-water 1,000 ML IV SCH ×2 (07:44→20:47)
[2020-05-27] MEDS: enoxaparin 30mg/0.3ml syringe SUBCUT SCH (07:45)
[2020-05-27] MEDS: vancomycin/NS 1 GM ADD-VANTAGE 250 ML IV SCH (07:45)
[2020-05-27] MEDS: lactobacillus rhamnosus 10,000 MMU CELLS/CAPSULE PO SCH ×2 (07:46→19:24)
[2020-05-27] MEDS: methylPREDNISolone sod succ/PF 40mg inj. IV SCH (07:46)
[2020-05-27] MEDS: pantoprazole 40 MG vial IV SCH (07:51)
[2020-05-27] MEDS: K and/or MAG REPLACEMENT MC SCH ×2 (08:00→19:27)
--- NOTE | 2020-05-27 09:22 | NUR ---
Dr. Monzon at bedside, new order for Lasix 20mg IV x1.
[2020-05-27] MEDS ORDERED: furosemide 20 MG/2 ML vial IV ONE (09:25)
[2020-05-27] MEDS: iron sucrose complex injection 200 MG in normal saline 100ml IV soln 100 ML IV SCH (10:44)
--- NOTE | 2020-05-27 14:30 | NUR ---
Dr. Alarcon at bedside. No new orders. Dressing changed at this time.
[2020-05-27] MEDS: FENTANYL-0.9 % NACL/PF 100 ML IV PRN (16:18)
[2020-05-27 16:40] LABS: ALBUMIN 1.8 G/DL (3.4-5.0); ANION GAP 5 (8-16); BLOOD UREA NITROGEN 34 MG/DL (7-18); BUN/CREATININE RATIO 24.1 (5.4-32.0); CALCIUM 7.3 MG/DL (8.5-10.1); CHLORIDE 104 MMOL/L (99-107); CREATININE 1.41 MG/DL (0.60-1.10); GLUCOSE 262 MG/DL (70-104); SODIUM 137 MMOL/L (135-145); TOTAL CARBON DIOXIDE 27.6 MMOL/L (24-32); eGFR 50 ML/MIN
[2020-05-27 16:42] LABS: PHOSPHORUS 2.2 MG/DL (2.3-4.5); POTASSIUM 4.1 MMOL/L (3.5-5.1)
--- NOTE | 2020-05-27 17:00 | NUR ---
Dressing changed at this time.
--- NOTE | 2020-05-27 18:30 | NUR ---
Patient in room [facility] 2006. I have received report from PHYLLIS Graves and had the opportunity to ask questions and assume patient care.
[2020-05-27] MEDS: midazolam 100mg in NS 100 ML INFUSION IV PRN (19:24)
[2020-05-27 20:07] LABS: MEAN PLATELET VOLUME 8.1 FL (7.4-10.4); PLATELET COUNT 206 X10'3 (140-440); RED BLOOD COUNT 2.79 X10'6 (4.70-6.10); WHITE BLOOD COUNT 12.2 X10'3 (4.5-11.0)
[2020-05-27 20:09] LABS: MEAN CORPUSCULAR HEMOGLOBIN 25.2 PG (27.0-31.0); RED CELL DISTRIBUTION WIDTH 26.8 % (11.5-14.5)
--- NOTE | 2020-05-27 20:30 | NUR ---
Marli Gannon at bedside and informed of critical Hgb: 7, Hct: 22, correcting CO2, and R jabier that is not Heparin locked. Received orders to Hep lock the jabier and leave BiCarb running at this time. Will continue to monitor.
[2020-05-27] MEDS: insulin glargine (Lantus) pen - multi-dose SQ SCH (20:40)
[2020-05-27 20:51] LABS: ANISOCYTOSIS 3+; NUCLEATED RED BLOOD CELLS 6 /100WBC (0-0); PLATELET ESTIMATE NORMAL; TOTAL CELLS COUNTED 100
[2020-05-27 20:52] LABS: ACANTHOCYTES 2+; ELLIPTOCYTES FEW; HYPOCHROMASIA 1+; MICROCYTOSIS 1+; POLYCHROMASIA 1+
[2020-05-27 21:01] LABS: ALBUMIN 1.8 G/DL (3.4-5.0); ANION GAP 5 (8-16); BLOOD UREA NITROGEN 32 MG/DL (7-18); BUN/CREATININE RATIO 24.1 (5.4-32.0); CALCIUM 7.4 MG/DL (8.5-10.1); CHLORIDE 104 MMOL/L (99-107); CREATININE 1.33 MG/DL (0.60-1.10); GLUCOSE 252 MG/DL (70-104); MAGNESIUM 2.3 MG/DL (1.5-2.4); PHOSPHORUS 2.1 MG/DL (2.3-4.5); SODIUM 138 MMOL/L (135-145); TOTAL CARBON DIOXIDE 28.8 MMOL/L (24-32); eGFR 53 ML/MIN
[2020-05-27] MEDS ORDERED: heparin 1,000 units/ml 10ml inj HE ONE ×2 (21:50)
--- NOTE | 2020-05-27 23:10 | NUR ---
Pt heart rate NSR in the low 60's dropping to upper 50's, notified Marli SHELLEY that pt is still on Amio drip, received orders to D/C.
[2020-05-28] VITALS (24 sets, daily range): BP systolic 94–144; BP diastolic 46–145
[2020-05-28] MEDS: amiodarone/D5 360MG/200ML BAG 200 ML IV SCH ×4 (00:13→18:28)
[2020-05-28] MEDS: mineral oil/petrolatum ophthal oint EACHEYE SCH ×4 (02:00→20:23)
[2020-05-28] MEDS: insulin regular, human U-100 3ml vial - multi-dose SQ SCH ×2 (02:01→08:01)
[2020-05-28 03:01] LABS: MEAN CORPUSCULAR HEMOGLOBIN 24.8 PG (27.0-31.0); MEAN CORPUSCULAR HGB CONC 31.7 g/dL (33.0-36.5); MEAN CORPUSCULAR VOLUME 78.3 FL (78-98); MEAN PLATELET VOLUME 8.2 FL (7.4-10.4); PLATELET COUNT 207 X10'3 (140-440); RED BLOOD COUNT 2.81 X10'6 (4.70-6.10); RED CELL DISTRIBUTION WIDTH 27.3 % (11.5-14.5); WHITE BLOOD COUNT 11.9 X10'3 (4.5-11.0)
[2020-05-28] MEDS: ipratropium/albuterol 3ml nebule NEB SCH ×6 (03:05→22:55)
[2020-05-28 03:30] LABS: ALBUMIN 1.7 G/DL (3.4-5.0); ANION GAP 3 (8-16); BLOOD UREA NITROGEN 27 MG/DL (7-18); BUN/CREATININE RATIO 23.5 (5.4-32.0); CALCIUM 7.5 MG/DL (8.5-10.1); CHLORIDE 104 MMOL/L (99-107); CREATININE 1.15 MG/DL (0.60-1.10); GLUCOSE 233 MG/DL (70-104); SODIUM 139 MMOL/L (135-145); TOTAL CARBON DIOXIDE 31.8 MMOL/L (24-32); eGFR 63 ML/MIN
[2020-05-28 04:05] LABS: MAGNESIUM 2.5 MG/DL (1.5-2.4)
[2020-05-28 05:04] LABS: ANISOCYTOSIS 3+; HYPOCHROMASIA 1+; MICROCYTOSIS 1+; NUCLEATED RED BLOOD CELLS 8 /100WBC (0-0); POLYCHROMASIA 1+; TOTAL CELLS COUNTED 100
[2020-05-28 05:05] LABS: ACANTHOCYTES 1+; ELLIPTOCYTES FEW
[2020-05-28 05:06] LABS: ABG HCO3 28.1 mmol/L (22.0-26.0); ABG OXYGEN SATURATION 97.1 % (94-97); ABG PCO2 (T) 39.2 mmHg (35.0-48.0); ABG PO2 (T) 92.8 mmHg (75.0-100.0); FCOHb 0.9 % (0.0-3.9); FMetHb 0.3 % (0.0-1.5); FO2Hb 95.9 % (94-97); PATIENT TEMPERATURE 36.4; PEEP 10 cm H2O; RESPIRATORY RATE 12 b/min; TIDAL VOLUME 650 mL; TOTAL HEMOGLOBIN 7.1 G/dl (14.0-18.0)
[2020-05-28 05:28] LABS: PLATELET ESTIMATE NORMAL
--- NOTE | 2020-05-28 06:30 | NUR ---
Problems reprioritized. Patient report given, questions answered & plan of care reviewed with PHYLLIS Balbuena.
[2020-05-28] MEDS: budesonide 0.5mg/2ml UD nebule IH SCH ×2 (07:11→18:58)
[2020-05-28] MEDS: iron sucrose complex injection 200 MG in normal saline 100ml IV soln 100 ML IV SCH (07:23)
[2020-05-28] MEDS: methylPREDNISolone sod succ/PF 40mg inj. IV SCH (07:24)
[2020-05-28] MEDS: piperacillin/tazo 3.375gm/50ml 50 ML IV SCH ×2 (07:24→17:06)
[2020-05-28] MEDS: vancomycin/NS 1 GM ADD-VANTAGE 250 ML IV SCH (07:24)
[2020-05-28] MEDS: pantoprazole 40 MG vial IV SCH (07:25)
[2020-05-28] MEDS: lactobacillus rhamnosus 10,000 MMU CELLS/CAPSULE PO SCH ×2 (07:25→20:00)
[2020-05-28] MEDS: enoxaparin 30mg/0.3ml syringe SUBCUT SCH (07:29)
[2020-05-28] MEDS: K and/or MAG REPLACEMENT MC SCH ×2 (08:00→20:00)
[2020-05-28] MEDS: sodium bicarbonate (8.4%) inj. 150 MEQ in dextrose 5%-water 1,000 ML IV SCH (08:49)
[2020-05-28] MEDS ORDERED: acetaminophen 325mg tablet PO ONE (14:50)
[2020-05-28] MEDS ORDERED: furosemide 40mg/4ml inj IV ONE (16:50)
--- NOTE | 2020-05-28 18:30 | NUR ---
Patient in room CICU 2006. I have received report from Esha FERGUSON and had the opportunity to ask questions and assume patient care.
--- NOTE | 2020-05-28 19:30 | NUR ---
Spoke with Tory Gannon ALINING INSPECTOR regarding patients NPO status and Insulin. Orders to not give patients Lantus tonight and monitor patients blood sugar closely while NPO. Will continue to monitor closely. Patients current BS 170.
--- NOTE | 2020-05-28 19:30 | NUR ---
Patient moving arms and legs but not responding to verbal stimuli. Patient facial grimacing when turned. Sedation turned back on for patient comfort. Will Continue to monitor closely.
[2020-05-28] MEDS: diatr meglu/diatrizoate 30ml oral sol.-(3 dose) bottle PEG SCH (20:23)
[2020-05-28] MEDS: insulin glargine (Lantus) pen - multi-dose SQ SCH (21:00)
[2020-05-28] MEDS: FENTANYL-0.9 % NACL/PF 100 ML IV PRN (22:23)
[2020-05-29] VITALS (28 sets, daily range): BP systolic 107–126; BP diastolic 51–64
[2020-05-29] MEDS: piperacillin/tazo 3.375gm/50ml 50 ML IV SCH ×3 (00:29→15:25)
[2020-05-29] MEDS: amiodarone/D5 360MG/200ML BAG 200 ML IV SCH ×4 (00:29→16:25)
[2020-05-29] MEDS: midazolam 100mg in NS 100 ML INFUSION IV PRN ×2 (00:30→18:37)
[2020-05-29] MEDS: mineral oil/petrolatum ophthal oint EACHEYE SCH ×4 (02:49→20:13)
[2020-05-29] MEDS: ipratropium/albuterol 3ml nebule NEB SCH ×6 (02:52→22:59)
[2020-05-29 03:10] LABS: BASOPHILS % (AUTO) 0.1 % (0-1); HEMOGLOBIN 7.1 g/dl (14.0-17.9); LYMPHOCYTES # (AUTO) 0.4 X10'3 (1.1-4.8); MEAN CORPUSCULAR HEMOGLOBIN 25.5 PG (27.0-31.0); MEAN CORPUSCULAR HGB CONC 32.1 g/dL (33.0-36.5)
[2020-05-29 03:14] LABS: EOSINOPHILS % (AUTO) 0 % (0-6); LYMPHOCYTES % (AUTO) 5.1 % (21-51); MEAN CORPUSCULAR VOLUME 79.5 FL (78-98); MEAN PLATELET VOLUME 7.9 FL (7.4-10.4); MONOCYTES % (AUTO) 11.5 % (2-12); NEUTROPHILS # (AUTO) 6.9 X10'3 (1.8-7.7); NEUTROPHILS % (AUTO) 83.3 % (42-75); PLATELET COUNT 201 X10'3 (140-440); RED BLOOD COUNT 2.77 X10'6 (4.70-6.10); RED CELL DISTRIBUTION WIDTH 27.5 % (11.5-14.5); WHITE BLOOD COUNT 8.3 X10'3 (4.5-11.0)
[2020-05-29 03:40] LABS: ALANINE AMINOTRANSFERASE 113 U/L (12-78); ALBUMIN 1.6 G/DL (3.4-5.0); ALBUMIN/GLOBULIN RATIO 0.5 (1.1-1.5); ALKALINE PHOSPHATASE 337 IU/L (46-116); ANION GAP 0 (8-16); BLOOD UREA NITROGEN 25 MG/DL (7-18); BUN/CREATININE RATIO 26.6 (5.4-32.0); CALCIUM 7.7 MG/DL (8.5-10.1); CHLORIDE 104 MMOL/L (99-107); CREATININE 0.94 MG/DL (0.60-1.10); GLUCOSE 191 MG/DL (70-104); MAGNESIUM 2.6 MG/DL (1.5-2.4); SODIUM 139 MMOL/L (135-145); TOTAL CARBON DIOXIDE 34.6 MMOL/L (24-32); TOTAL PROTEIN 4.7 G/DL (6.4-8.2); eGFR 79 ML/MIN
[2020-05-29 03:41] LABS: ASPARTATE AMINO TRANSFERASE 245 U/L (10-37); PHOSPHORUS 1.9 MG/DL (2.3-4.5); POTASSIUM 4.1 MMOL/L (3.5-5.1)
[2020-05-29 03:44] LABS: NUCLEATED RED BLOOD CELLS 3 /100WBC (0-0); TOTAL CELLS COUNTED 100
[2020-05-29 03:45] LABS: ACANTHOCYTES 1+; ANISOCYTOSIS 3+; HYPOCHROMASIA 1+; MICROCYTOSIS 1+; PLATELET ESTIMATE NORMAL; POLYCHROMASIA 1+; SCHISTOCYTES FEW
[2020-05-29 04:46] LABS: ABG BASE EXCESS 8.5 mmol/L (-2.0-2.0); ABG HCO3 32.1 mmol/L (22.0-26.0); ABG OXYGEN SATURATION 97.2 % (94-97); ABG PCO2 (T) 39.4 mmHg (35.0-48.0); ABG PO2 (T) 90.4 mmHg (75.0-100.0); FCOHb 0.5 % (0.0-3.9); FMetHb 0.3 % (0.0-1.5); FO2Hb 96.4 % (94-97); PATIENT TEMPERATURE 36.7; PEEP 5 cm H2O; RESPIRATORY RATE 12 b/min; TIDAL VOLUME 650 mL; TOTAL HEMOGLOBIN 7.7 G/dl (14.0-18.0)
--- NOTE | 2020-05-29 06:23 | NUR ---
Problems reprioritized. Patient report given, questions answered & plan of care reviewed with Kristie FERGUSON.
[2020-05-29] MEDS: budesonide 0.5mg/2ml UD nebule IH SCH ×2 (06:56→19:12)
[2020-05-29] MEDS: methylPREDNISolone sod succ/PF 40mg inj. IV SCH (07:11)
[2020-05-29] MEDS: iron sucrose complex injection 200 MG in normal saline 100ml IV soln 100 ML IV SCH (07:11)
[2020-05-29] MEDS: vancomycin/NS 1 GM ADD-VANTAGE 250 ML IV SCH (07:11)
[2020-05-29] MEDS: pantoprazole 40 MG vial IV SCH (07:12)
[2020-05-29] MEDS: enoxaparin 30mg/0.3ml syringe SUBCUT SCH (07:12)
[2020-05-29] MEDS: diatr meglu/diatrizoate 30ml oral sol.-(3 dose) bottle PEG SCH ×2 (07:12→11:34)
[2020-05-29] MEDS: lactobacillus rhamnosus 10,000 MMU CELLS/CAPSULE PO SCH ×2 (07:12→20:12)
[2020-05-29] MEDS ORDERED: VANCOMYCIN LEVEL IV ONE (07:30)
[2020-05-29] MEDS: K and/or MAG REPLACEMENT MC SCH ×2 (08:00→20:00)
[2020-05-29] MEDS: FENTANYL-0.9 % NACL/PF 100 ML IV PRN (11:33)
[2020-05-29] MEDS ORDERED: iohexol 300mg/ml 100ml inj. ONE (11:38)
[2020-05-29] MEDS ORDERED: insulin Lispro (HumaLOG) vial - multi-dose SQ SCH (13:55)
[2020-05-29] MEDS ORDERED: epoetin 20,000 units/ml inj SQ ONE (14:30)
--- NOTE | 2020-05-29 14:34 | NUR ---
reassessment: tube feedings off today for oral contrast CT scan, pt with incisional drainage. Previously on trickle tube feeds with vital AF at 30 ml/hr. Recommend resuming as able to trickle rate and advance to goal rate of 80 mL/hr once MD okays advancing TF rate to meet patient's estimated nutrient needs. Patient is intubated s/p robotic lap converted to open repair of diaphragmatic hernia, transverse colectomy, G-tube placement, lysis of adhesions, and chest tube placements. Per MD note admitted with colon CA, and is intubated r/t COPD and acute respiratory failure. Recommendations: 1) Resume as able Trickle TF per MD using Vital AF at 30 mL/hr to provide: 720 mL total volume/day, 864 kcal, 54 g protein, and 584 mL water 2) Once MD okays advancing TF goal rate, recommend advancing by 20 mL Q8H as tolerated to goal rate of 80 mL/hr to provide: 1920 mL total volume/day, 2304 kcal, 144 g protein, and 1557 mL water 3) Prealbumin q Thursday and 4) Daily weights Addendum: 05/29/20 at [address] Amended: Links added.
--- NOTE | 2020-05-29 18:25 | NUR ---
Problems reprioritized. Patient report given, questions answered & plan of care reviewed with PHYLLIS Hart.
--- NOTE | 2020-05-29 19:30 | NUR ---
Spoke with son, Christiano - updated him on current condition and plan of care. Throughout conversation, Christiano became more and more upset, stating "You all are covering something up that you did to my dad. You better hope he gets better or else!" I informed him after speaking with him for approx 10 minutes repeating the same thing that I had to go tend to his father. He immediately called back, charge nurse (Kosta) spoke with him, who then informed him he would not be allowed to call here anymore because of his threatening behavior on the phone. Nursing purchasing and claims supervisor (Chiquita) notified.
[2020-05-29] MEDS: VANCOmycin 1250MG/NS 250ml Bag 250 ML IV SCH (20:12)
[2020-05-29] MEDS: insulin glargine (Lantus) pen - multi-dose SQ SCH (20:21)
[2020-05-29] MEDS: insulin regular, human U-100 3ml vial - multi-dose SQ SCH (20:21)
[2020-05-30] VITALS (23 sets, daily range): BP systolic 90–146; BP diastolic 49–70
[2020-05-30] MEDS: piperacillin/tazo 3.375gm/50ml 50 ML IV SCH ×3 (00:13→16:23)
[2020-05-30] MEDS: amiodarone/D5 360MG/200ML BAG 200 ML IV SCH ×4 (00:45→16:23)
[2020-05-30 02:34] LABS: HEMOGLOBIN 8.6 g/dl (14.0-17.9); MEAN CORPUSCULAR HEMOGLOBIN 26.1 PG (27.0-31.0); RED BLOOD COUNT 3.31 X10'6 (4.70-6.10); WHITE BLOOD COUNT 11.6 X10'3 (4.5-11.0)
[2020-05-30] MEDS: mineral oil/petrolatum ophthal oint EACHEYE SCH ×4 (02:35→20:16)
[2020-05-30 02:36] LABS: HEMATOCRIT 26.7 % (42.0-52.0); MEAN CORPUSCULAR HGB CONC 32.3 g/dL (33.0-36.5); MEAN CORPUSCULAR VOLUME 80.7 FL (78-98); MEAN PLATELET VOLUME 7.6 FL (7.4-10.4); PLATELET COUNT 251 X10'3 (140-440); RED CELL DISTRIBUTION WIDTH 25.6 % (11.5-14.5)
[2020-05-30] MEDS: insulin regular, human U-100 3ml vial - multi-dose SQ SCH ×4 (02:36→20:45)
[2020-05-30 02:50] LABS: ALANINE AMINOTRANSFERASE 88 U/L (12-78); ALBUMIN 1.7 G/DL (3.4-5.0); ALBUMIN/GLOBULIN RATIO 0.5 (1.1-1.5); ALKALINE PHOSPHATASE 290 IU/L (46-116); ANION GAP 1 (8-16); ASPARTATE AMINO TRANSFERASE 52 U/L (10-37); BILIRUBIN,TOTAL 0.4 MG/DL (0.1-1.0); BLOOD UREA NITROGEN 29 MG/DL (7-18); BUN/CREATININE RATIO 33.3 (5.4-32.0); CHLORIDE 105 MMOL/L (99-107); CREATININE 0.87 MG/DL (0.60-1.10); GLUCOSE 145 MG/DL (70-104); MAGNESIUM 2.8 MG/DL (1.5-2.4); PHOSPHORUS 2.1 MG/DL (2.3-4.5); POTASSIUM 4.2 MMOL/L (3.5-5.1); SODIUM 140 MMOL/L (135-145); TOTAL CARBON DIOXIDE 34.1 MMOL/L (24-32); TOTAL PROTEIN 4.9 G/DL (6.4-8.2); eGFR 87 ML/MIN
[2020-05-30 03:12] LABS: ANISOCYTOSIS 2+; HYPOCHROMASIA 1+; MICROCYTOSIS 1+; PLATELET ESTIMATE NORMAL; POLYCHROMASIA 1+; TOTAL CELLS COUNTED 100
[2020-05-30 03:13] LABS: SCHISTOCYTES FEW
[2020-05-30] MEDS: ipratropium/albuterol 3ml nebule NEB SCH ×6 (03:17→23:06)
[2020-05-30 03:29] LABS: NUCLEATED RED BLOOD CELLS 3 /100WBC (0-0)
[2020-05-30] MEDS: FENTANYL-0.9 % NACL/PF 100 ML IV PRN ×2 (03:44→20:04)
[2020-05-30 04:01] LABS: ABG BASE EXCESS 9.1 mmol/L (-2.0-2.0); ABG HCO3 33.7 mmol/L (22.0-26.0); ABG OXYGEN SATURATION 94.2 % (94-97); ABG PCO2 (T) 47.4 mmHg (35.0-48.0); ABG PO2 (T) 76.3 mmHg (75.0-100.0); FCOHb 0.2 % (0.0-3.9); PATIENT TEMPERATURE 37.2; PEEP 5 cm H2O; TOTAL HEMOGLOBIN 9.6 G/dl (14.0-18.0)
--- NOTE | 2020-05-30 06:11 | NUR ---
Problems reprioritized. Patient report given, questions answered & plan of care reviewed with PHYLLIS Flowers.
[2020-05-30] MEDS: budesonide 0.5mg/2ml UD nebule IH SCH ×2 (06:56→19:15)
[2020-05-30] MEDS: K and/or MAG REPLACEMENT MC SCH ×2 (08:00→20:00)
[2020-05-30] MEDS: lactobacillus rhamnosus 10,000 MMU CELLS/CAPSULE PO SCH ×2 (08:31→20:17)
[2020-05-30] MEDS: VANCOmycin 1250MG/NS 250ml Bag 250 ML IV SCH ×2 (08:31→20:17)
[2020-05-30] MEDS: methylPREDNISolone sod succ/PF 40mg inj. IV SCH (08:31)
[2020-05-30] MEDS: pantoprazole 40 MG vial IV SCH (08:31)
[2020-05-30] MEDS: enoxaparin 30mg/0.3ml syringe SUBCUT SCH (08:31)
[2020-05-30] MEDS: dexmedetomidin/NS 400mcg/100ml 100 ML IV SCH ×2 (13:30→19:20)
[2020-05-30] MEDS ORDERED: methylnaltrexone br 12mg/0.6ml inj***SubQ only SQ ONE (17:30)
[2020-05-30] MEDS: insulin glargine (Lantus) pen - multi-dose SQ SCH (20:48)
[2020-05-31] VITALS (23 sets, daily range): BP systolic 92–144; BP diastolic 48–75
--- NOTE | 2020-05-31 00:36 | NUR ---
vomited tube feeding colored vomitus more or less 150 cc , while turning to sides , awaken easily , restless and agitated , increased sedation to calm him down , otherwise follow commands if he wants to.
[2020-05-31] MEDS: amiodarone/D5 360MG/200ML BAG 200 ML IV SCH ×4 (01:01→20:27)
[2020-05-31] MEDS: piperacillin/tazo 3.375gm/50ml 50 ML IV SCH ×2 (01:29→07:48)
[2020-05-31] MEDS: dexmedetomidin/NS 400mcg/100ml 100 ML IV SCH ×2 (01:33→10:33)
[2020-05-31] MEDS: mineral oil/petrolatum ophthal oint EACHEYE SCH ×4 (02:41→20:16)
[2020-05-31] MEDS: ipratropium/albuterol 3ml nebule NEB SCH ×6 (03:05→22:56)
[2020-05-31 03:46] LABS: ABG BASE EXCESS 8.9 mmol/L (-2.0-2.0); ABG HCO3 32.9 mmol/L (22.0-26.0); ABG OXYGEN SATURATION 96.1 % (94-97); ABG PCO2 (T) 43.8 mmHg (35.0-48.0); ABG PO2 (T) 84.2 mmHg (75.0-100.0); FCOHb 0.1 % (0.0-3.9); FMetHb 0.3 % (0.0-1.5); FO2Hb 95.7 % (94-97); PATIENT TEMPERATURE 37.3; PEEP 5 cm H2O; TOTAL HEMOGLOBIN 9.5 G/dl (14.0-18.0)
[2020-05-31 04:27] LABS: BASOPHILS % (AUTO) 0 % (0-1); EOSINOPHILS # (AUTO) 0.1 X10'3 (0-0.9); EOSINOPHILS % (AUTO) 0.5 % (0-6); HEMATOCRIT 28.1 % (42.0-52.0); HEMOGLOBIN 8.8 g/dl (14.0-17.9); LYMPHOCYTES # (AUTO) 0.8 X10'3 (1.1-4.8); LYMPHOCYTES % (AUTO) 7.2 % (21-51); MEAN CORPUSCULAR HEMOGLOBIN 25.7 PG (27.0-31.0); MEAN CORPUSCULAR HGB CONC 31.2 g/dL (33.0-36.5); MEAN CORPUSCULAR VOLUME 82.5 FL (78-98); MEAN PLATELET VOLUME 7.5 FL (7.4-10.4); MONOCYTES # (AUTO) 0.8 X10'3 (0-0.9); MONOCYTES % (AUTO) 7.1 % (2-12); NEUTROPHILS % (AUTO) 85.2 % (42-75); PLATELET COUNT 234 X10'3 (140-440); RED CELL DISTRIBUTION WIDTH 26.3 % (11.5-14.5); WHITE BLOOD COUNT 11.7 X10'3 (4.5-11.0)
[2020-05-31 04:37] LABS: ALANINE AMINOTRANSFERASE 71 U/L (12-78); ALBUMIN 1.6 G/DL (3.4-5.0); ALBUMIN/GLOBULIN RATIO 0.5 (1.1-1.5); ALKALINE PHOSPHATASE 292 IU/L (46-116); ANION GAP 2 (8-16); ASPARTATE AMINO TRANSFERASE 41 U/L (10-37); BILIRUBIN,TOTAL 0.6 MG/DL (0.1-1.0); BLOOD UREA NITROGEN 34 MG/DL (7-18); BUN/CREATININE RATIO 41.5 (5.4-32.0); CALCIUM 7.8 MG/DL (8.5-10.1); CHLORIDE 106 MMOL/L (99-107); CREATININE 0.82 MG/DL (0.60-1.10); GLUCOSE 128 MG/DL (70-104); MAGNESIUM 2.6 MG/DL (1.5-2.4); PHOSPHORUS 2.9 MG/DL (2.3-4.5); POTASSIUM 4.2 MMOL/L (3.5-5.1); PREALBUMIN 16.1 MG/DL (19-36); SODIUM 141 MMOL/L (135-145); TOTAL CARBON DIOXIDE 33.3 MMOL/L (24-32); TOTAL PROTEIN 4.9 G/DL (6.4-8.2); eGFR > 90 ML/MIN
[2020-05-31 04:44] LABS: PLATELET ESTIMATE NORMAL
[2020-05-31 04:45] LABS: ANISOCYTOSIS 3+; ELLIPTOCYTES FEW; HYPOCHROMASIA 1+; MICROCYTOSIS 1+; POLYCHROMASIA FEW
[2020-05-31 04:46] LABS: SCHISTOCYTES 1+
[2020-05-31] MEDS: FENTANYL-0.9 % NACL/PF 100 ML IV PRN ×4 (04:52→22:37)
[2020-05-31] MEDS ORDERED: VANCOMYCIN LEVEL IV ONE (07:30)
[2020-05-31] MEDS: VANCOmycin 1250MG/NS 250ml Bag 250 ML IV SCH (07:48)
[2020-05-31] MEDS: methylPREDNISolone sod succ/PF 40mg inj. IV SCH (07:48)
[2020-05-31] MEDS: lactobacillus rhamnosus 10,000 MMU CELLS/CAPSULE PO SCH ×2 (07:48→20:00)
[2020-05-31] MEDS: pantoprazole 40 MG vial IV SCH (07:48)
[2020-05-31] MEDS: enoxaparin 30mg/0.3ml syringe SUBCUT SCH (07:49)
[2020-05-31] MEDS: budesonide 0.5mg/2ml UD nebule IH SCH ×2 (07:53→19:11)
[2020-05-31] MEDS: K and/or MAG REPLACEMENT MC SCH ×2 (08:00→20:00)
[2020-05-31] MEDS: propofol 1000mg/100ml bottle 100 ML IV SCH ×2 (11:21→20:08)
[2020-05-31] MEDS: NORepinephrine 8mg/ 250ml NS 250 ML IV SCH (11:50)
[2020-05-31] MEDS ORDERED: albumin (human) 25% 100 ML IV solution IV ONE (11:50)
[2020-05-31] MEDS ORDERED: LIDOcaine 1% (10mg/ml) 2ml vial ONE (12:00)
[2020-05-31] MEDS ORDERED: sevoflurane 250ml liquid IH ONE (12:18)
[2020-05-31] MEDS ORDERED: rocuronium 10mg/ml inj IV ONE ×2 (12:18→12:28)
[2020-05-31] MEDS ORDERED: amiodarone in dextrose, iso-osm 360mg/200ml bag IV ONE (12:18)
--- NOTE | 2020-05-31 12:26 | NUR ---
Pt emergently taken to surgery for abd wound dehiscence. Pt's son notified
[2020-05-31] MEDS ORDERED: NORepinephrine 1 mg/ml inj IV ONE (12:37)
[2020-05-31 12:44] LABS: TOTAL CELLS COUNTED 100; TOXIC GRANULATION 1+
[2020-05-31 12:45] LABS: PARTIAL THROMBOPLASTIN TIME 31 SECONDS (22-32)
--- NOTE | 2020-05-31 13:18 | NUR ---
reassessment: tube feedings were at 50 ml/hr, turned off last night after emesis per Bedside RN. At critical care rounds MD discussed possible TPN. Per RN there is concern for wound dehiscence and for the incisional drainage. Pt off to emergent OR. Will follow. Recommendations: 1) IF TPN, recommend continuous 3:1 TPN using Clinimix E 5/20 with 100 ml 20% intralipids at goal rate of 100 ml/hr will provide total volume of 2400 ml, 2239 cals, 114 g protein, and 3.85 mg/kg/min CHO loading. 2) Prealbumin and TG q thursday and 3) When medically indicated to resume tube feedings per MD, recommend using and when MDnce MD okloretta advancing TF goal rate, recommend using vital AF and advancing by 20 mL Q8H as tolerated to goal rate of 80 mL/hr to provide: 1920 mL total volume/day, 2304 kcal, 144 g protein, and 1557 mL water 4) Daily weights Addendum: 05/31/20 at [address] Amended: Links added. Addendum: 05/31/20 at [address] Correction: reassessment: tube feedings were at 50 ml/hr, turned off last night after emesis per Bedside RN. At critical care rounds MD discussed possible TPN. Per RN there is concern for wound dehiscence and for the incisional drainage. Pt off to emergent OR. Will follow. Recommendations: 1) IF TPN, recommend continuous 3:1 TPN using Clinimix E 5/20 with 100 ml 20% intralipids at goal rate of 100 ml/hr will provide total volume of 2400 ml, 2239 cals, 114 g protein, and 3.85 mg/kg/min CHO loading. 2) Prealbumin and TG q thursday and 3) When medically indicated to resume tube feedings per MD, recommend using Vital AF 4) Daily weights
[2020-05-31] MEDS ORDERED: albumin (Human) 5% 250ml 250 ML IV ONE (13:29)
--- NOTE | 2020-05-31 14:05 | NUR ---
Pt returned from OR. Hooked up to monitor. CT dsgs redressed. VSS. JPx2. Abd dsg clean dry and intact. New colostomy.
[2020-05-31] MEDS: cefepime 2g/NS 100ml ADVANTAGE 100 ML IV SCH ×2 (15:39→20:20)
--- NOTE | 2020-05-31 16:01 | NUR ---
TPN consult received. Pt went to emergent OR today, is s/p ex lap for wound closure, partial colectomy, and colostomy. tube feedings were at 50 ml/hr, turned off last night after emesis per Bedside RN. At critical care rounds MD discussed possible TPN. Per RN there is concern for wound dehiscence and for the incisional drainage. TPN recs d/w clinical pharmacist. Recommendations: 1) Recommend continuous 3:1 TPN using Clinimix E 03/21 with 100 ml 20% intralipids at goal rate of 100 ml/hr will provide total volume of 2400 ml, 2239 cals, 114 g protein, and 3.85 mg/kg/min CHO loading. 2) Prealbumin and TG q thursday and 3) When medically indicated to resume tube feedings per MD, recommend using Vital AF 4) Daily weights Addendum: 05/31/20 at [address] Amended: Links added.
[2020-05-31] MEDS ORDERED: Dextrose 10%-water IV solution 1,000 ML IV PRN (16:10)
[2020-05-31 17:31] LABS: ALANINE AMINOTRANSFERASE 57 U/L (12-78); ALBUMIN 2.2 G/DL (3.4-5.0); ALBUMIN/GLOBULIN RATIO 0.8 (1.1-1.5); ALKALINE PHOSPHATASE 218 IU/L (46-116); ANION GAP 10 (8-16); ASPARTATE AMINO TRANSFERASE 39 U/L (10-37); BILIRUBIN,TOTAL 1.2 MG/DL (0.1-1.0); BLOOD UREA NITROGEN 34 MG/DL (7-18); BUN/CREATININE RATIO 41.5 (5.4-32.0); CALCIUM 7.4 MG/DL (8.5-10.1); CHLORIDE 106 MMOL/L (99-107); CREATININE 0.82 MG/DL (0.60-1.10); GLUCOSE 216 MG/DL (70-104); MAGNESIUM 2.4 MG/DL (1.5-2.4); PHOSPHORUS 3.3 MG/DL (2.3-4.5); POTASSIUM 4.4 MMOL/L (3.5-5.1); SODIUM 140 MMOL/L (135-145); TOTAL CARBON DIOXIDE 24.3 MMOL/L (24-32); TOTAL PROTEIN 4.8 G/DL (6.4-8.2); TRIGLYCERIDES 91 MG/DL (20-135); eGFR > 90 ML/MIN
[2020-05-31] MEDS: insulin regular, human U-100 3ml vial - multi-dose SQ SCH (20:14)
[2020-05-31] MEDS: insulin glargine (Lantus) pen - multi-dose SQ SCH (20:16)
[2020-05-31] MEDS: VANCOMYCIN 1,500MG inj. 1,500 MG in normal saline 500ml IV soln 300 ML IV SCH (20:25)
--- NOTE | 2020-05-31 20:28 | NUR ---
i held patients 2000 dose of culturelle. to clarify with dr tapia in am re: procedure/O.R. this afternoon
[2020-05-31] MEDS ORDERED: [UNRECOGNIZED DRUG - REMARK] IV SCH ×4 (21:00)
--- NOTE | 2020-05-31 22:40 | NUR ---
patients temp rises to 39.3 in spite of ice packs fan etc - call to kurtis mckinney because I have only an order for PT tylenol and with recent abdominal surgery - i have not given PT meds. Kurtis MCKINNEY orders IV tylenol -
[2020-05-31] MEDS ORDERED: acetaminophen 1,000mg/100ml IV 100 ML IV ONE (22:45)
--- NOTE | 2020-05-31 23:23 | NUR ---
iv tylenol infuses. i wanted to clarify that patient is not YET on a cooling blanket due to difficulty finding one. currently section housekeeper is trying to locate one for me -currently ice packs in place, room temp down, fan
[2020-06-01] VITALS (24 sets, daily range): BP systolic 85–128; BP diastolic 47–63
[2020-06-01] MEDS: propofol 1000mg/100ml bottle 100 ML IV SCH ×4 (01:38→20:29)
[2020-06-01] MEDS: amiodarone/D5 360MG/200ML BAG 200 ML IV SCH ×2 (02:41→07:27)
[2020-06-01] MEDS: mineral oil/petrolatum ophthal oint EACHEYE SCH ×4 (02:41→20:24)
[2020-06-01 02:47] LABS: BASOPHILS % (AUTO) 0.1 % (0-1); EOSINOPHILS % (AUTO) 0.2 % (0-6); LYMPHOCYTES # (AUTO) 0.6 X10'3 (1.1-4.8); MONOCYTES # (AUTO) 0.3 X10'3 (0-0.9); MONOCYTES % (AUTO) 1.5 % (2-12)
[2020-06-01] MEDS: insulin regular, human U-100 3ml vial - multi-dose SQ SCH ×4 (02:47→21:13)
[2020-06-01 02:50] LABS: HEMATOCRIT 32.6 % (42.0-52.0); HEMOGLOBIN 10.3 g/dl (14.0-17.9); LYMPHOCYTES % (AUTO) 2.9 % (21-51); MEAN CORPUSCULAR HEMOGLOBIN 26.3 PG (27.0-31.0); MEAN CORPUSCULAR HGB CONC 31.6 g/dL (33.0-36.5); NEUTROPHILS % (AUTO) 95.3 % (42-75); PLATELET COUNT 334 X10'3 (140-440); RED BLOOD COUNT 3.92 X10'6 (4.70-6.10); RED CELL DISTRIBUTION WIDTH 28.1 % (11.5-14.5); WHITE BLOOD COUNT 22.1 X10'3 (4.5-11.0)
[2020-06-01 03:09] LABS: ALANINE AMINOTRANSFERASE 48 U/L (12-78); ALBUMIN 1.9 G/DL (3.4-5.0); ALBUMIN/GLOBULIN RATIO 0.6 (1.1-1.5); ALKALINE PHOSPHATASE 179 IU/L (46-116); ANION GAP 6 (8-16); ASPARTATE AMINO TRANSFERASE 29 U/L (10-37); BILIRUBIN,TOTAL 1.7 MG/DL (0.1-1.0); BLOOD UREA NITROGEN 37 MG/DL (7-18); BUN/CREATININE RATIO 31.1 (5.4-32.0); CALCIUM 7.5 MG/DL (8.5-10.1); CHLORIDE 106 MMOL/L (99-107); CREATININE 1.19 MG/DL (0.60-1.10); GLUCOSE 133 MG/DL (70-104); MAGNESIUM 2.4 MG/DL (1.5-2.4); PHOSPHORUS 3.3 MG/DL (2.3-4.5); POTASSIUM 4.3 MMOL/L (3.5-5.1); SODIUM 141 MMOL/L (135-145); TOTAL CARBON DIOXIDE 29.2 MMOL/L (24-32); TOTAL PROTEIN 5.3 G/DL (6.4-8.2); TRIGLYCERIDES 80 MG/DL (20-135); eGFR 60 ML/MIN
[2020-06-01 03:18] LABS: TOTAL CELLS COUNTED 100
[2020-06-01 03:19] LABS: ANISOCYTOSIS 3+; HYPOCHROMASIA 1+; MICROCYTOSIS 1+; PLATELET ESTIMATE NORMAL; SCHISTOCYTES 1+; TARGET CELLS FEW
[2020-06-01] MEDS: ipratropium/albuterol 3ml nebule NEB SCH ×6 (03:24→23:21)
[2020-06-01] MEDS: NORepinephrine 8mg/ 250ml NS 250 ML IV SCH ×3 (03:55→10:35)
[2020-06-01 05:26] LABS: ABG HCO3 25.7 mmol/L (22.0-26.0); ABG OXYGEN SATURATION 97.4 % (94-97); ABG PCO2 (T) 36.6 mmHg (35.0-48.0); ABG PO2 (T) 98.3 mmHg (75.0-100.0); FCOHb 0.3 % (0.0-3.9); FMetHb 0.3 % (0.0-1.5); FO2Hb 96.8 % (94-97); PATIENT TEMPERATURE 36.8; PEEP 5 cm H2O; RESPIRATORY RATE 12 b/min; TIDAL VOLUME 650 mL
--- NOTE | 2020-06-01 06:45 | NUR ---
Patient in room [facility] 2006. I have received report from Cliff FERGUSON and had the opportunity to ask questions and assume patient care.
[2020-06-01] MEDS: budesonide 0.5mg/2ml UD nebule IH SCH ×2 (07:00→19:39)
[2020-06-01] MEDS: pantoprazole 40 MG vial IV SCH (07:19)
[2020-06-01] MEDS: cefepime 2g/NS 100ml ADVANTAGE 100 ML IV SCH ×2 (07:19→20:35)
[2020-06-01] MEDS: enoxaparin 30mg/0.3ml syringe SUBCUT SCH (07:19)
[2020-06-01] MEDS: lactobacillus rhamnosus 10,000 MMU CELLS/CAPSULE PO SCH ×2 (08:00→20:00)
[2020-06-01] MEDS: K and/or MAG REPLACEMENT MC SCH ×2 (08:00→20:00)
[2020-06-01] MEDS: FENTANYL-0.9 % NACL/PF 100 ML IV PRN (08:20)
[2020-06-01] MEDS: VANCOMYCIN 1,500MG inj. 1,500 MG in normal saline 500ml IV soln 300 ML IV SCH ×2 (08:44→20:35)
--- NOTE | 2020-06-01 12:49 | NUR ---
New bottle of Diprigreg arthur; issues with [employer] are not allowing this nurse into patient's eMar. Bedside double check done.
--- NOTE | 2020-06-01 16:33 | NUR ---
Second bottle of lillie arthur, rate remains at 50mcg/kg/hr; Still currently unable to access patient's eMar appropriately, pharmacy and charge aware. Addendum: 06/01/20 at 1653 by Zainab Gómez RN Ticket number for IT case is [phone].
--- NOTE | 2020-06-01 19:27 | NUR ---
unable to open patient emar, multiple tries, multiple computers. charge nurse aware. rt is also unable to access. charge histotechnologist calls to pharmacy to get paper emars...
[2020-06-01] MEDS: insulin glargine (Lantus) pen - multi-dose SQ SCH (20:27)
[2020-06-01] MEDS: [UNRECOGNIZED DRUG - REMARK] IV SCH ×4 (20:36)
[2020-06-02] VITALS (24 sets, daily range): BP systolic 89–137; BP diastolic 43–67
[2020-06-02] MEDS: FENTANYL-0.9 % NACL/PF 100 ML IV PRN ×2 (02:17→20:04)
[2020-06-02] MEDS: insulin regular, human U-100 3ml vial - multi-dose SQ SCH ×4 (02:30→20:53)
[2020-06-02] MEDS: mineral oil/petrolatum ophthal oint EACHEYE SCH ×4 (02:32→20:43)
[2020-06-02] MEDS: ipratropium/albuterol 3ml nebule NEB SCH ×6 (02:54→23:10)
[2020-06-02 02:59] LABS: BASOPHILS % (AUTO) 0.1 % (0-1); EOSINOPHILS # (AUTO) 0.2 X10'3 (0-0.9); HEMOGLOBIN 8.8 g/dl (14.0-17.9); MONOCYTES # (AUTO) 0.9 X10'3 (0-0.9); RED CELL DISTRIBUTION WIDTH 28.4 % (11.5-14.5)
[2020-06-02 03:01] LABS: HEMATOCRIT 28.4 % (42.0-52.0); LYMPHOCYTES # (AUTO) 0.7 X10'3 (1.1-4.8); LYMPHOCYTES % (AUTO) 3.6 % (21-51); MEAN CORPUSCULAR HEMOGLOBIN 25.5 PG (27.0-31.0); MEAN CORPUSCULAR HGB CONC 30.9 g/dL (33.0-36.5); MEAN CORPUSCULAR VOLUME 82.5 FL (78-98); MEAN PLATELET VOLUME 8.5 FL (7.4-10.4); MONOCYTES % (AUTO) 4.4 % (2-12); NEUTROPHILS # (AUTO) 18.3 X10'3 (1.8-7.7); NEUTROPHILS % (AUTO) 90.9 % (42-75); PLATELET COUNT 261 X10'3 (140-440); RED BLOOD COUNT 3.44 X10'6 (4.70-6.10); WHITE BLOOD COUNT 20.1 X10'3 (4.5-11.0)
[2020-06-02 03:06] LABS: ABG BASE EXCESS -1.7 mmol/L (-2.0-2.0); ABG HCO3 21.9 mmol/L (22.0-26.0); ABG OXYGEN SATURATION 94.8 % (94-97); ABG PCO2 (T) 33.6 mmHg (35.0-48.0); ABG PO2 (T) 79.6 mmHg (75.0-100.0); FCOHb 0.1 % (0.0-3.9); FMetHb 0.2 % (0.0-1.5); FO2Hb 94.5 % (94-97); PATIENT TEMPERATURE 37.6; PEEP 5 cm H2O; RESPIRATORY RATE 12 b/min; TIDAL VOLUME 650 mL; TOTAL HEMOGLOBIN 9.5 G/dl (14.0-18.0)
[2020-06-02 03:12] LABS: ALANINE AMINOTRANSFERASE 37 U/L (12-78); ALBUMIN 1.4 G/DL (3.4-5.0); ALBUMIN/GLOBULIN RATIO 0.4 (1.1-1.5); ALKALINE PHOSPHATASE 128 IU/L (46-116); ANION GAP 4 (8-16); ASPARTATE AMINO TRANSFERASE 32 U/L (10-37); BILIRUBIN,TOTAL 1.9 MG/DL (0.1-1.0); BLOOD UREA NITROGEN 45 MG/DL (7-18); BUN/CREATININE RATIO 32.6 (5.4-32.0); CALCIUM 7.7 MG/DL (8.5-10.1); CHLORIDE 107 MMOL/L (99-107); CREATININE 1.38 MG/DL (0.60-1.10); GLUCOSE 227 MG/DL (70-104); MAGNESIUM 2.6 MG/DL (1.5-2.4); PHOSPHORUS 4.4 MG/DL (2.3-4.5); POTASSIUM 4.5 MMOL/L (3.5-5.1); SODIUM 139 MMOL/L (135-145); TOTAL CARBON DIOXIDE 27.9 MMOL/L (24-32); TOTAL PROTEIN 4.7 G/DL (6.4-8.2); eGFR 51 ML/MIN
[2020-06-02] MEDS: propofol 1000mg/100ml bottle 100 ML IV SCH ×5 (03:47→18:59)
[2020-06-02] MEDS: NORepinephrine 8mg/ 250ml NS 250 ML IV SCH ×4 (04:03→19:18)
[2020-06-02 06:58] LABS: PLATELET ESTIMATE NORMAL; TOTAL CELLS COUNTED 100
[2020-06-02 06:59] LABS: ANISOCYTOSIS 3+; TOXIC GRANULATION 2+
[2020-06-02 07:00] LABS: BURR CELLS 1+; SCHISTOCYTES FEW
[2020-06-02 07:02] LABS: ELLIPTOCYTES FEW
[2020-06-02] MEDS ORDERED: VANCOMYCIN LEVEL IV ONE (07:30)
[2020-06-02] MEDS: budesonide 0.5mg/2ml UD nebule IH SCH ×2 (07:36→19:00)
[2020-06-02] MEDS: pantoprazole 40 MG vial IV SCH (07:38)
[2020-06-02] MEDS: enoxaparin 30mg/0.3ml syringe SUBCUT SCH (07:38)
[2020-06-02] MEDS: cefepime 2g/NS 100ml ADVANTAGE 100 ML IV SCH ×2 (07:39→20:43)
[2020-06-02] MEDS: K and/or MAG REPLACEMENT MC SCH ×2 (07:50→20:00)
[2020-06-02] MEDS: lactobacillus rhamnosus 10,000 MMU CELLS/CAPSULE PO SCH ×2 (07:50→20:00)
[2020-06-02] MEDS: VANCOMYCIN 1,500MG inj. 1,500 MG in normal saline 500ml IV soln 300 ML IV SCH (09:03)
[2020-06-02] MEDS ORDERED: acetaminophen 1,000mg/100ml IV 100 ML IV PRN (10:05)
[2020-06-02] MEDS ORDERED: [UNRECOGNIZED DRUG - REMARK] IV SCH ×4 (13:45)
[2020-06-02] MEDS: [UNRECOGNIZED DRUG - REMARK] IV SCH ×4 (17:48)
--- NOTE | 2020-06-02 18:12 | NUR ---
Problems reprioritized. Patient report given, questions answered & plan of care reviewed with Cliff FERGUSON.
[2020-06-02] MEDS: insulin glargine (Lantus) pen - multi-dose SQ SCH (20:55)
[2020-06-03] VITALS (27 sets, daily range): BP systolic 80–124; BP diastolic 44–68
[2020-06-03] MEDS: NORepinephrine 8mg/ 250ml NS 250 ML IV SCH ×5 (00:29→21:54)
[2020-06-03 02:09] LABS: BASOPHILS # (AUTO) 0.1 X10'3 (0-0.2); BASOPHILS % (AUTO) 0.3 % (0-1); EOSINOPHILS # (AUTO) 0.3 X10'3 (0-0.9); EOSINOPHILS % (AUTO) 1.8 % (0-6); HEMOGLOBIN 8.1 g/dl (14.0-17.9); LYMPHOCYTES # (AUTO) 0.4 X10'3 (1.1-4.8); MEAN CORPUSCULAR HEMOGLOBIN 25.8 PG (27.0-31.0); MEAN CORPUSCULAR HGB CONC 31.1 g/dL (33.0-36.5); MEAN PLATELET VOLUME 8.4 FL (7.4-10.4); MONOCYTES # (AUTO) 2.3 X10'3 (0-0.9); MONOCYTES % (AUTO) 11.9 % (2-12); PLATELET COUNT 271 X10'3 (140-440); RED BLOOD COUNT 3.13 X10'6 (4.70-6.10); WHITE BLOOD COUNT 19.1 X10'3 (4.5-11.0)
[2020-06-03 02:13] LABS: PARTIAL THROMBOPLASTIN TIME 40 SECONDS (22-32)
[2020-06-03 02:20] LABS: ALANINE AMINOTRANSFERASE 36 U/L (12-78); ALBUMIN 1.2 G/DL (3.4-5.0); ALBUMIN/GLOBULIN RATIO 0.3 (1.1-1.5); ALKALINE PHOSPHATASE 133 IU/L (46-116); ANION GAP 3 (8-16); ASPARTATE AMINO TRANSFERASE 32 U/L (10-37); BLOOD UREA NITROGEN 51 MG/DL (7-18); BUN/CREATININE RATIO 32.5 (5.4-32.0); CALCIUM 7.9 MG/DL (8.5-10.1); CHLORIDE 109 MMOL/L (99-107); CREATININE 1.57 MG/DL (0.60-1.10); GLUCOSE 133 MG/DL (70-104); MAGNESIUM 2.7 MG/DL (1.5-2.4); PHOSPHORUS 4.7 MG/DL (2.3-4.5); POTASSIUM 4.9 MMOL/L (3.5-5.1); SODIUM 140 MMOL/L (135-145); TOTAL CARBON DIOXIDE 27.9 MMOL/L (24-32); TOTAL PROTEIN 4.7 G/DL (6.4-8.2); eGFR 44 ML/MIN
[2020-06-03] MEDS: insulin regular, human U-100 3ml vial - multi-dose SQ SCH ×3 (02:34→20:26)
[2020-06-03] MEDS: mineral oil/petrolatum ophthal oint EACHEYE SCH ×4 (02:36→20:17)
[2020-06-03] MEDS: ipratropium/albuterol 3ml nebule NEB SCH ×6 (02:54→22:59)
[2020-06-03 03:05] LABS: ABG BASE EXCESS -0.4 mmol/L (-2.0-2.0); ABG HCO3 25.6 mmol/L (22.0-26.0); ABG OXYGEN SATURATION 96.4 % (94-97); ABG PCO2 (T) 49.8 mmHg (35.0-48.0); ABG PO2 (T) 96.1 mmHg (75.0-100.0); FCOHb 0.5 % (0.0-3.9); FMetHb 0.3 % (0.0-1.5); FO2Hb 95.6 % (94-97); PATIENT TEMPERATURE 37.5; PEEP 5 cm H2O; RESPIRATORY RATE 12 b/min; TIDAL VOLUME 650 mL; TOTAL HEMOGLOBIN 8.9 G/dl (14.0-18.0)
[2020-06-03] MEDS: FENTANYL-0.9 % NACL/PF 100 ML IV PRN ×3 (04:02→21:55)
--- NOTE | 2020-06-03 04:30 | NUR ---
central line dressing changed, B/L chest tube dressings changed, abdominal midline dressing changed per order - pus and brown liquid satuate the iodaform i pulled out - restuffed iodiform per order - clean 4x4's and abdominal pads. care taken with regard rt tape and patient skin
[2020-06-03 04:48] LABS: ANISOCYTOSIS 3+; NUCLEATED RED BLOOD CELLS 1 /100WBC (0-0); TOTAL CELLS COUNTED 100
[2020-06-03 04:49] LABS: PLATELET ESTIMATE NORMAL
[2020-06-03 04:50] LABS: ELLIPTOCYTES FEW; SCHISTOCYTES FEW
[2020-06-03 04:52] LABS: HYPOCHROMASIA 1+
[2020-06-03 04:53] LABS: BURR CELLS 1+
[2020-06-03] MEDS: propofol 1000mg/100ml bottle 100 ML IV SCH ×5 (05:24→21:56)
--- NOTE | 2020-06-03 06:58 | NUR ---
Patient in room CICU 2007. I have received report from VIJAY FERGUSON and had the opportunity to ask questions and assume patient care. VSS, LEVOPHED RUNNING AT 0.4, LIGHT. FENT/PROP RUNNING. TPN AT 100. ART LINE IN PLACE 2 JPS EMPTY AT THIS TIME. VENT 30%. WILL CONTINUE TO MONITOR.
[2020-06-03] MEDS: budesonide 0.5mg/2ml UD nebule IH SCH ×2 (07:11→19:09)
[2020-06-03] MEDS: lactobacillus rhamnosus 10,000 MMU CELLS/CAPSULE PO SCH ×2 (08:00→20:00)
[2020-06-03] MEDS: K and/or MAG REPLACEMENT MC SCH ×2 (08:00→20:00)
--- NOTE | 2020-06-03 08:00 | NUR ---
Received a phone call from radiologis, there is a 1cm Right pneumo, informed Dr. Kelsey of pneumo, he stated that the patient has had it and that he is not worried about it.
[2020-06-03] MEDS: pantoprazole 40 MG vial IV SCH (08:20)
[2020-06-03] MEDS: vancomycin/NS 1 GM ADD-VANTAGE 250 ML IV SCH ×2 (08:20→20:17)
[2020-06-03] MEDS: cefepime 2g/NS 100ml ADVANTAGE 100 ML IV SCH ×2 (08:20→20:06)
--- NOTE | 2020-06-03 09:22 | NUR ---
Ean Consult: Ean Mahmood w/ abdominal surgical wound; taken into consideration for nutrition support tolerating PN at goal. Addendum: 06/03/20 at [address] Amended: Links added.
[2020-06-03] MEDS: dextrose 50%-water 50ml dispensing syringe IV PRN (13:52)
[2020-06-03] MEDS: [UNRECOGNIZED DRUG - REMARK] IV SCH ×4 (14:00)
[2020-06-03] MEDS ORDERED: NORepinephrine inj. 32 MG in normal saline 250ml IV soln 218 ML IV SCH (15:15)
--- NOTE | 2020-06-03 15:30 | NUR ---
Spoke with Claudia Soria about switching patient to quad strength levophed as he is going through a bag every 3 hours, she stated that it was ok to switch him to the quad strength.
--- NOTE | 2020-06-03 15:42 | NUR ---
PHARMACY REQUESTING TO USE THE 6 PREMIXED BAGS OF LEVOPHED BEFORE SWITCHING TO QUAD STRENGTH, OK PER PA REEVES.
[2020-06-03] MEDS: insulin glargine (Lantus) pen - multi-dose SQ SCH (20:25)
[2020-06-03] MEDS ORDERED: amiodarone 150mg/dext, iso-os 100 ML IV ONE ×3 (22:10→22:15)
[2020-06-03] MEDS: amiodarone/D5 360MG/200ML BAG 200 ML IV SCH (22:38)
[2020-06-04] VITALS (30 sets, daily range): BP systolic 92–156; BP diastolic 42–95
[2020-06-04] MEDS: propofol 1000mg/100ml bottle 100 ML IV SCH ×6 (01:44→21:40)
[2020-06-04] MEDS: mineral oil/petrolatum ophthal oint EACHEYE SCH ×4 (02:32→21:44)
--- NOTE | 2020-06-04 02:53 | NUR ---
I DID NOT GIVE INSULIN TO THIS PATIENT AT 2 AM - bg WAS 89. DAY SHIFT YESTERDAY WERE HAVING HYPOGLYCEMIC PROBLEMS WITH THIS PATIENT - I WILL PILL THIS INFORMATION TO THE FOLLOWING RN. NEXT BG DUE 0800
[2020-06-04] MEDS: ipratropium/albuterol 3ml nebule NEB SCH ×6 (03:04→23:08)
[2020-06-04 03:07] LABS: ALANINE AMINOTRANSFERASE 36 U/L (12-78); ALBUMIN 0.9 G/DL (3.4-5.0); ALBUMIN/GLOBULIN RATIO 0.2 (1.1-1.5); ALKALINE PHOSPHATASE 125 IU/L (46-116); BILIRUBIN,TOTAL 2.6 MG/DL (0.1-1.0); BLOOD UREA NITROGEN 56 MG/DL (7-18); BUN/CREATININE RATIO 34.6 (5.4-32.0); CALCIUM 7.6 MG/DL (8.5-10.1); CHLORIDE 109 MMOL/L (99-107); CREATININE 1.62 MG/DL (0.60-1.10); GLUCOSE 102 MG/DL (70-104); HEMATOCRIT 23.8 % (42.0-52.0); HEMOGLOBIN 7.7 g/dl (14.0-17.9); MAGNESIUM 2.5 MG/DL (1.5-2.4); MEAN CORPUSCULAR HGB CONC 32.3 g/dL (33.0-36.5); MEAN CORPUSCULAR VOLUME 83.6 FL (78-98); MEAN PLATELET VOLUME 8.3 FL (7.4-10.4); PLATELET COUNT 340 X10'3 (140-440); PREALBUMIN 8.8 MG/DL (19-36); RED BLOOD COUNT 2.84 X10'6 (4.70-6.10); RED CELL DISTRIBUTION WIDTH 27.9 % (11.5-14.5); TOTAL CARBON DIOXIDE 22.9 MMOL/L (24-32); TOTAL PROTEIN 4.6 G/DL (6.4-8.2); TRIGLYCERIDES 150 MG/DL (20-135); WHITE BLOOD COUNT 16.5 X10'3 (4.5-11.0); eGFR 42 ML/MIN
[2020-06-04 03:16] LABS: ABG BASE EXCESS -3.2 mmol/L (-2.0-2.0); ABG HCO3 21.6 mmol/L (22.0-26.0); ABG OXYGEN SATURATION 93.9 % (94-97); ABG PCO2 (T) 38.9 mmHg (35.0-48.0); ABG PO2 (T) 76.5 mmHg (75.0-100.0); FCOHb 0.7 % (0.0-3.9); FMetHb 0.1 % (0.0-1.5); FO2Hb 93.1 % (94-97); PATIENT TEMPERATURE 37.9; PEEP 5 cm H2O; RESPIRATORY RATE 12 b/min; TIDAL VOLUME 650 mL; TOTAL HEMOGLOBIN 7.9 G/dl (14.0-18.0)
[2020-06-04 03:20] LABS: ANION GAP 7 (8-16); ASPARTATE AMINO TRANSFERASE 48 U/L (10-37); PHOSPHORUS 4.1 MG/DL (2.3-4.5); POTASSIUM 4.9 MMOL/L (3.5-5.1); SODIUM 139 MMOL/L (135-145)
[2020-06-04 04:02] LABS: PLATELET ESTIMATE DECREASED; TOTAL CELLS COUNTED 100
[2020-06-04 04:03] LABS: ANISOCYTOSIS 3+
[2020-06-04 04:07] LABS: ELLIPTOCYTES FEW; SCHISTOCYTES FEW
[2020-06-04] MEDS: amiodarone/D5 360MG/200ML BAG 200 ML IV SCH ×4 (04:13→23:24)
[2020-06-04] MEDS: NORepinephrine 8mg/ 250ml NS 250 ML IV SCH ×6 (04:39→22:10)
[2020-06-04] MEDS: FENTANYL-0.9 % NACL/PF 100 ML IV PRN ×3 (07:14→23:52)
[2020-06-04] MEDS: vancomycin/NS 1 GM ADD-VANTAGE 250 ML IV SCH (07:47)
[2020-06-04] MEDS: cefepime 2g/NS 100ml ADVANTAGE 100 ML IV SCH (07:47)
[2020-06-04] MEDS: pantoprazole 40 MG vial IV SCH (07:47)
[2020-06-04] MEDS: lactobacillus rhamnosus 10,000 MMU CELLS/CAPSULE PO SCH (07:53)
[2020-06-04] MEDS: K and/or MAG REPLACEMENT MC SCH ×2 (07:53→20:00)
[2020-06-04] MEDS: insulin regular, human U-100 3ml vial - multi-dose SQ SCH ×2 (08:08→14:19)
[2020-06-04] MEDS: fluconazole-Diflucan 200mg/NS 100 ML IV SCH (10:40)
--- NOTE | 2020-06-04 10:40 | NUR ---
Called Dr Cameron in regards to patients stoma appearance and FRANCISCA drainage. He stated to call Dr. Contreras and see if he can add him on for a wash out if not he will come back this evening and perform the washout. Paged Dr. Contreras, he returned the phone call and stated that he will add him on today, ICU charge nurse informed as well as OR charge nurse
[2020-06-04] MEDS: budesonide 0.5mg/2ml UD nebule IH SCH ×2 (11:22→20:00)
[2020-06-04] MEDS: [UNRECOGNIZED DRUG - REMARK] IV SCH ×4 (12:25)
--- NOTE | 2020-06-04 14:14 | NUR ---
Rounds note Reviewed systems and problem list with Dr. Choudhury, informed him that patient will be going back to OR for a wash out and re-evaluation of his stoma. Dr. Choudhury updated on changes through the evening in regards to the afib with RVR and that he is now on the maintenance dose of amiodarone. He addressed the patients low H/H and that it is trending down, he ordered 1 unit of PRBC. He will not address the albumin at this moment but is aware that it is .9, stated that with his infectious process his body would only use it towards nutrition.
[2020-06-04] MEDS: cefepime 1GM/NS ADD-VANTAGE 100 ML IV SCH ×2 (15:36→23:42)
[2020-06-04] MEDS: metroNIDAZOLE-Flagyl 500mg/NS 100 ML IV SCH ×2 (15:36→23:42)
[2020-06-04] MEDS: vasopressin inj. 40 UNIT in normal saline 50ml IV soln 38 ML IV SCH ×2 (17:01→21:51)
[2020-06-04 18:20] LABS: ABG BASE EXCESS -9.8 mmol/L (-2.0-2.0); ABG HCO3 20.5 mmol/L (22.0-26.0); ABG OXYGEN SATURATION 87.1 % (94-97); ABG PCO2 (T) 79.8 mmHg (35.0-48.0); ABG PO2 (T) 83.4 mmHg (75.0-100.0); FCOHb 0.4 % (0.0-3.9); FMetHb 0.3 % (0.0-1.5); FO2Hb 86.5 % (94-97); PATIENT TEMPERATURE 38.4; PEEP 5 cm H2O; RESPIRATORY RATE 12 b/min; TIDAL VOLUME 650 mL; TOTAL HEMOGLOBIN 8.3 G/dl (14.0-18.0)
[2020-06-04] MEDS ORDERED: NORepinephrine 8 MG in NS 250 ML BAG (32 mcg/ml) IV ONE (18:22)
[2020-06-04] MEDS ORDERED: propofol 10mg/ml 20ml vial IV ONE (18:22)
[2020-06-04] MEDS ORDERED: amiodarone in dextrose, iso-osm 150mg/100ml bag IV ONE (18:22)
[2020-06-04] MEDS ORDERED: sevoflurane 250ml liquid IH ONE (18:22)
[2020-06-04] MEDS ORDERED: amiodarone in dextrose, iso-osm 360mg/200ml bag IV ONE (18:22)
[2020-06-04] MEDS ORDERED: vasoPRESSIN 20 units/ml inj. ONE ×2 (18:22)
[2020-06-04 18:45] LABS: ABG BASE EXCESS -5.4 mmol/L (-2.0-2.0); ABG HCO3 21.2 mmol/L (22.0-26.0); ABG OXYGEN SATURATION 88.7 % (94-97); ABG PCO2 (T) 49.7 mmHg (35.0-48.0); ABG PO2 (T) 67.8 mmHg (75.0-100.0); FCOHb 0.3 % (0.0-3.9); FMetHb 0.2 % (0.0-1.5); FO2Hb 88.3 % (94-97); PATIENT TEMPERATURE 38.1; PEEP 5 cm H2O; TOTAL HEMOGLOBIN 8.1 G/dl (14.0-18.0)
[2020-06-04 18:50] LABS: PO2 MIXED VENOUS (TEMP COR) 44.4 mmHg (35-46)
[2020-06-04] MEDS ORDERED: midazolam 100mg in NS 100ml 100 ML IV PRN (18:50)
[2020-06-04] MEDS ORDERED: epiNEPHrine inj 5 MG, calcium chloride inj. 1,000 MG in normal saline 250ml IV soln 235 ML IV PRN (18:50)
[2020-06-04] MEDS ORDERED: VANCOMYCIN LEVEL IV ONE (19:30)
[2020-06-04] MEDS: lactobacillus rhamnosus 10,000 MMU CELLS/CAPSULE GT SCH (20:00)
[2020-06-04] MEDS ORDERED: rocuronium 10mg/ml inj IV ONE ×3 (20:17)
[2020-06-04 20:50] LABS: ABG BASE EXCESS -5.8 mmol/L (-2.0-2.0); ABG HCO3 18.8 mmol/L (22.0-26.0); ABG OXYGEN SATURATION 91.5 % (94-97); ABG PCO2 (T) 34.9 mmHg (35.0-48.0); ABG PO2 (T) 64.5 mmHg (75.0-100.0); FCOHb 0.3 % (0.0-3.9); FMetHb 0.1 % (0.0-1.5); FO2Hb 91.1 % (94-97); PATIENT TEMPERATURE 37.9; PEEP 5 cm H2O; RESPIRATORY RATE 26 b/min; TIDAL VOLUME 650 mL; TOTAL HEMOGLOBIN 10.3 G/dl (14.0-18.0)
[2020-06-04 21:00] LABS: BASOPHILS # (AUTO) 0.1 X10'3 (0-0.2); BASOPHILS % (AUTO) 0.4 % (0-1); EOSINOPHILS # (AUTO) 0.2 X10'3 (0-0.9); EOSINOPHILS % (AUTO) 1.5 % (0-6); HEMATOCRIT 29.2 % (42.0-52.0); HEMOGLOBIN 9.3 g/dl (14.0-17.9); LYMPHOCYTES # (AUTO) 0.7 X10'3 (1.1-4.8); LYMPHOCYTES % (AUTO) 4.9 % (21-51); MEAN CORPUSCULAR HEMOGLOBIN 26.7 PG (27.0-31.0); MEAN CORPUSCULAR HGB CONC 31.8 g/dL (33.0-36.5); MEAN CORPUSCULAR VOLUME 84.1 FL (78-98); MEAN PLATELET VOLUME 8.2 FL (7.4-10.4); MONOCYTES # (AUTO) 1.1 X10'3 (0-0.9); MONOCYTES % (AUTO) 7.2 % (2-12); NEUTROPHILS # (AUTO) 12.8 X10'3 (1.8-7.7); PLATELET COUNT 346 X10'3 (140-440); RED BLOOD COUNT 3.48 X10'6 (4.70-6.10); RED CELL DISTRIBUTION WIDTH 23.6 % (11.5-14.5); WHITE BLOOD COUNT 14.8 X10'3 (4.5-11.0)
[2020-06-04] MEDS: insulin glargine (Lantus) pen - multi-dose SQ SCH (21:00)
[2020-06-04 21:16] LABS: PARTIAL THROMBOPLASTIN TIME 41 SECONDS (22-32)
[2020-06-04 21:25] LABS: ALANINE AMINOTRANSFERASE 38 U/L (12-78); ALBUMIN 0.8 G/DL (3.4-5.0); ALBUMIN/GLOBULIN RATIO 0.2 (1.1-1.5); ALKALINE PHOSPHATASE 131 IU/L (46-116); ANION GAP 9 (8-16); BILIRUBIN,TOTAL 2.7 MG/DL (0.1-1.0); BLOOD UREA NITROGEN 66 MG/DL (7-18); BUN/CREATININE RATIO 32.7 (5.4-32.0); CALCIUM 7.4 MG/DL (8.5-10.1); CHLORIDE 109 MMOL/L (99-107); CREATININE 2.02 MG/DL (0.60-1.10); MAGNESIUM 2.6 MG/DL (1.5-2.4); SODIUM 139 MMOL/L (135-145); TOTAL CARBON DIOXIDE 21.3 MMOL/L (24-32); TOTAL PROTEIN 4.6 G/DL (6.4-8.2); eGFR 33 ML/MIN
[2020-06-04 21:27] LABS: GLUCOSE 42 MG/DL (70-104)
[2020-06-04 21:28] LABS: ASPARTATE AMINO TRANSFERASE 62 U/L (10-37); POTASSIUM 5.8 MMOL/L (3.5-5.1)
[2020-06-04] MEDS: dextrose 50%-water 50ml dispensing syringe IV PRN (21:36)
--- NOTE | 2020-06-04 21:41 | NUR ---
FOR THE 2029 DIPRIVAN ASSESSMENT - PATIENT WAS IN THE O.R. NOT IN ICU FOR ME TO ASSESS
[2020-06-05] VITALS (23 sets, daily range): BP systolic 92–131; BP diastolic 44–59
--- NOTE | 2020-06-05 02:15 | NUR ---
CALL TO PARKER Orozco NP FOR U/O 20 ML X 2HRS. DARK, SEDIMENT. MADE PARKER AWARE OF ALBUMIN OF 0.8, RECEIVED 2 U PRBC IN OR, SVV ON FLOW TRACK 17. ORDERS FOR 25 % ALBUMIN Addendum: 06/05/20 at 0219 by Cliff Martinez RN (CONTINUED NOTE -->[facility] CLOSED UNEXPECTED) - RECEIVED ORDERS FOR 25 % ALBUMIN - 200 ML, LASIX 40 ML
[2020-06-05] MEDS ORDERED: furosemide 40mg/4ml inj IV ONE ×2 (02:20→22:30)
[2020-06-05] MEDS ORDERED: albumin (human) 25% 100 ML IV solution IV ONE (02:20)
[2020-06-05] MEDS: mineral oil/petrolatum ophthal oint EACHEYE SCH ×4 (02:30→21:20)
[2020-06-05] MEDS: NORepinephrine 8mg/ 250ml NS 250 ML IV SCH (02:41)
[2020-06-05] MEDS: NORepinephrine inj. 32 MG in normal saline 250ml IV soln 218 ML IV SCH ×9 (02:45→22:46)
[2020-06-05] MEDS: ipratropium/albuterol 3ml nebule NEB SCH ×6 (02:59→23:08)
[2020-06-05] MEDS: insulin regular, human U-100 3ml vial - multi-dose SQ SCH ×4 (03:01→21:23)
[2020-06-05 03:16] LABS: ABG BASE EXCESS -7.9 mmol/L (-2.0-2.0); ABG HCO3 16.7 mmol/L (22.0-26.0); ABG OXYGEN SATURATION 93.8 % (94-97); ABG PCO2 (T) 31.4 mmHg (35.0-48.0); ABG PO2 (T) 76.2 mmHg (75.0-100.0); FCOHb 0.1 % (0.0-3.9); FMetHb 0.3 % (0.0-1.5); FO2Hb 93.4 % (94-97); PATIENT TEMPERATURE 37.4; RESPIRATORY RATE 26 b/min; TIDAL VOLUME 650 mL; TOTAL HEMOGLOBIN 10.3 G/dl (14.0-18.0)
[2020-06-05 03:26] LABS: BASOPHILS # (AUTO) 0.1 X10'3 (0-0.2); BASOPHILS % (AUTO) 0.7 % (0-1); EOSINOPHILS # (AUTO) 0.1 X10'3 (0-0.9); EOSINOPHILS % (AUTO) 0.5 % (0-6); HEMATOCRIT 29.7 % (42.0-52.0); HEMOGLOBIN 9.6 g/dl (14.0-17.9); LYMPHOCYTES # (AUTO) 0.6 X10'3 (1.1-4.8); LYMPHOCYTES % (AUTO) 4.2 % (21-51); MEAN CORPUSCULAR HEMOGLOBIN 27.3 PG (27.0-31.0); MEAN CORPUSCULAR HGB CONC 32.4 g/dL (33.0-36.5); MEAN CORPUSCULAR VOLUME 84.3 FL (78-98); MEAN PLATELET VOLUME 8.7 FL (7.4-10.4); MONOCYTES # (AUTO) 1.6 X10'3 (0-0.9); MONOCYTES % (AUTO) 10.7 % (2-12); NEUTROPHILS # (AUTO) 12.2 X10'3 (1.8-7.7); NEUTROPHILS % (AUTO) 83.9 % (42-75); PLATELET COUNT 338 X10'3 (140-440); RED BLOOD COUNT 3.52 X10'6 (4.70-6.10); RED CELL DISTRIBUTION WIDTH 23.9 % (11.5-14.5); WHITE BLOOD COUNT 14.5 X10'3 (4.5-11.0)
[2020-06-05 03:38] LABS: ALANINE AMINOTRANSFERASE 36 U/L (12-78); ALBUMIN 1.2 G/DL (3.4-5.0); ALBUMIN/GLOBULIN RATIO 0.4 (1.1-1.5); ALKALINE PHOSPHATASE 109 IU/L (46-116); ANION GAP 12 (8-16); ASPARTATE AMINO TRANSFERASE 50 U/L (10-37); BILIRUBIN,TOTAL 3.4 MG/DL (0.1-1.0); BLOOD UREA NITROGEN 69 MG/DL (7-18); CALCIUM 7.6 MG/DL (8.5-10.1); CHLORIDE 108 MMOL/L (99-107); CREATININE 2.38 MG/DL (0.60-1.10); GLUCOSE 176 MG/DL (70-104); MAGNESIUM 2.6 MG/DL (1.5-2.4); PHOSPHORUS 5.6 MG/DL (2.3-4.5); SODIUM 138 MMOL/L (135-145); TOTAL CARBON DIOXIDE 18.1 MMOL/L (24-32); TOTAL PROTEIN 4.6 G/DL (6.4-8.2); eGFR 27 ML/MIN
[2020-06-05 03:39] LABS: POTASSIUM 5.7 MMOL/L (3.5-5.1)
[2020-06-05] MEDS: amiodarone/D5 360MG/200ML BAG 200 ML IV SCH ×4 (05:07→22:48)
--- NOTE | 2020-06-05 05:31 | NUR ---
PATIENT RECEIVED THE ALBUMIN AND LASIX EARLIER WHEN ORDERED HOWEVER U/O REMAINS POOR GIVEN THAT HE RECEIVED LASIX AND ALBUMIN~ 30-40 ML/HR OF DARK ORION URINE. LESTER FLUSHED THERE IS SEDIMENT PRESENT. FLUSHED WITH 10 ML NS - NO IMMEDIATE RESPONSE - WILL CONTINUE TO MONITOR. SLOWLY WEANING LEVOPHED AND PATIENT IS TOLERATING IT. VERSED GTT OFF. FENTANYL STAYING AT 50 MCG/HR. WEAK COUGH, NO COMMANDS, EVAN AT 3 MM AND BRISK RESPONSE TO LIGHT. W/D TO PAINFUL STIMULI RESTRAINED FOR SAFETY. B/L CT WITH MINIMAL DRAINAGE THIS SHIFT. FRANCISCA EMPTIED MULTIPLE TIMES THIS SHIFT - SEE I/O FLOW SHEET. FRANCISCA DRAINAGE DARK RED LIQUID. RIGHT NGT TO LWSXN SINCE RETURN - ONLY SMALL AMOUNT BROWN RED DRAINAGE IN TUBING. ABDOMINAL DRESSING CDI. SEVERE WEEPING FROM RIGHT FORE ARM - WRAPPED WITH OPTILOCK AND KERLEX. RIGHT GROIN - POST HD CATH - LEAKS TREMENDOUS AMT SEROUS. OPTILOCK ALSO WITH PRESSURE DRESSING. NO COMPLICATIONS WITH PULMONARY STATUS.
[2020-06-05 07:21] LABS: ANISOCYTOSIS 3+; LARGE PLATELETS FEW; PLATELET ESTIMATE NORMAL; TOTAL CELLS COUNTED 100
[2020-06-05 07:23] LABS: SCHISTOCYTES FEW
[2020-06-05] MEDS: fluconazole-Diflucan 200mg/NS 100 ML IV SCH (07:51)
[2020-06-05] MEDS: metroNIDAZOLE-Flagyl 500mg/NS 100 ML IV SCH ×2 (07:51→15:30)
[2020-06-05] MEDS: cefepime 1GM/NS ADD-VANTAGE 100 ML IV SCH ×2 (07:51→15:30)
[2020-06-05] MEDS: pantoprazole 40 MG vial IV SCH (07:52)
[2020-06-05] MEDS: K and/or MAG REPLACEMENT MC SCH ×2 (07:58→20:00)
[2020-06-05] MEDS: lactobacillus rhamnosus 10,000 MMU CELLS/CAPSULE GT SCH ×2 (08:00→21:19)
[2020-06-05] MEDS: budesonide 0.5mg/2ml UD nebule IH SCH ×2 (08:00→19:02)
[2020-06-05] MEDS ORDERED: albumin (Human) 5% 250ml 250 ML IV ONE (08:35)
[2020-06-05] MEDS: [UNRECOGNIZED DRUG - REMARK] IV SCH ×4 (10:20)
[2020-06-05] MEDS ORDERED: albumin (human) 25% 100ml IV 100 ML IV SCH (11:06)
[2020-06-05] MEDS ORDERED: DEXTROSE 5% IV SCH (11:10)
[2020-06-05] MEDS ORDERED: SODIUM BICARBONATE IV SCH (11:10)
[2020-06-05] MEDS ORDERED: WATER IV SCH (11:10)
[2020-06-05] MEDS: FENTANYL-0.9 % NACL/PF 100 ML IV PRN ×2 (12:33→20:52)
[2020-06-05] MEDS: DEXTROSE 5% IV SCH ×2 (12:48→22:47)
[2020-06-05] MEDS: WATER IV SCH ×2 (12:48→22:47)
[2020-06-05] MEDS: SODIUM BICARBONATE IV SCH ×2 (12:48→22:47)
--- NOTE | 2020-06-05 14:00 | NUR ---
SPOKE WITH PHARMACY ABOUT Y SITE COMPATIBILITY, AMIODARONE VERSED AND FENTANYL CAUTION VARIABLE ON MICROMEDIX-PER PHARMACIST OK TO RUN TOGETHER IF NEEDED FOR LACK OF VENOUS ACCESS.
[2020-06-05] MEDS ORDERED: albumin (human) 25% 100ml IV 100 ML IV ONE (15:15)
[2020-06-05 15:21] LABS: ABG BASE EXCESS -9.4 mmol/L (-2.0-2.0); ABG HCO3 17.3 mmol/L (22.0-26.0); ABG OXYGEN SATURATION 93.5 % (94-97); ABG PCO2 (T) 42.1 mmHg (35.0-48.0); FCOHb 0.3 % (0.0-3.9); FMetHb 0.4 % (0.0-1.5); FO2Hb 92.8 % (94-97); PATIENT TEMPERATURE 37.5; PEEP 5 cm H2O; RESPIRATORY RATE 16 b/min; TIDAL VOLUME 600 mL; TOTAL HEMOGLOBIN 8.8 G/dl (14.0-18.0)
--- NOTE | 2020-06-05 15:56 | NUR ---
Reassessment: Patient is s/p wash out and abdominal tissue debridement last night. Colostomy redo pending tomorrow. Still receiving TPN. Ean Patient is s/p robotic lap converted to open repair of diaphragmatic hernia, transverse colectomy, G-tube placement, lysis of adhesions, and chest tube placements. Per MD note admitted with colon CA, and is intubated r/t COPD and acute respiratory failure. Potassium is elevated, MD aware, reports that K should be corrected with dextrose and bicarb. TG trending up, currently at 150; patient has also been receiving propofol, will continue to monitor and adjust 20% intralipids as needed. Recommendations: 1) Recommend continuous 3:1 TPN using Clinimix E 5/ with 100 ml 20% intralipids at goal rate of 100 ml/hr will provide total volume of 2400 ml, 2239 cals, 114 g protein, and 3.85 mg/kg/min CHO loading. 2) Prealbumin and TG q thursday and 3) When medically indicated to resume tube feedings per MD, recommend using Vital AF 4) Daily weights Addendum: 06/05/20 at [address] Amended: Links added.
[2020-06-05 16:33] LABS: TOTAL PROTEIN,URINE RANDOM 89.8 MG/DL
[2020-06-05] MEDS: vasopressin inj. 40 UNIT in normal saline 50ml IV soln 38 ML IV SCH (16:49)
[2020-06-05] MEDS: albumin (human) 25% 100ml IV 200 ML IV SCH (20:58)
[2020-06-05] MEDS: insulin glargine (Lantus) pen - multi-dose SQ SCH (21:27)
--- NOTE | 2020-06-05 22:19 | NUR ---
CALL TO PARKER MCKINNEY TO UPDATE . PATIENTS O2 SATS HAVE BEEN TRENDING DOWN OVER THE LAST 24 HOURS. CURRENTLY 92 % ON 30 % fIO2. THESE ARE SAME VENT SETTINGS FOR LAST 24 HRS BUT SATS TRENDING DOWN FROM 98-99 % PREVIOUSLY ON SAME SETTING. DIMINISHED AND CRACKLES IN B/L BASES. BOTH BASES VERY DIMINISHED BUT R>L. U/O HAS BEEN ABOUT 10-15 / HR THIS SHIFT. LOW U/O IS A CONTINUATION ISSUE FROM PREVIOUS SHIFT WELL. LASIX IV ORDER RECEIVED.
[2020-06-06] VITALS (30 sets, daily range): BP systolic 82–127; BP diastolic 40–75
[2020-06-06] MEDS: cefepime 1GM/NS ADD-VANTAGE 100 ML IV SCH ×3 (00:32→16:00)
[2020-06-06] MEDS: metroNIDAZOLE-Flagyl 500mg/NS 100 ML IV SCH ×3 (00:32→16:00)
--- NOTE | 2020-06-06 01:18 | NUR ---
CALL TO PARKER DINH NP TO TO UPDATE THAT HOURLY U/O'S SINCE THE 40 MG LASIX WAS 22 ML , 10 ML, AND 0 ML URINE THIS LAST HOUR. I FLUSHED THE LESTER WITH 10 ML AND GOT 10 ML BACK TO UROMETER. NO ORDERS AT THIS TIME
--- NOTE | 2020-06-06 01:22 | NUR ---
SEVERAL TIMES THIS SHIFT i HAVE ATTEMPTED TO TITRATE DOWN LEVOPHED BUT PATIENT DOES NOT TOLERATE EVEN THE SMALLEST DECREASE. VASOPRESSIN STILL AT MAX DOSE 0.04 UNITS/ MIN.
[2020-06-06] MEDS: NORepinephrine inj. 32 MG in normal saline 250ml IV soln 218 ML IV SCH ×8 (01:24→21:32)
[2020-06-06] MEDS: albumin (human) 25% 100ml IV 200 ML IV SCH (02:24)
[2020-06-06] MEDS: mineral oil/petrolatum ophthal oint EACHEYE SCH ×4 (02:24→20:11)
[2020-06-06] MEDS: insulin regular, human U-100 3ml vial - multi-dose SQ SCH ×5 (02:42→20:55)
[2020-06-06 03:30] LABS: BASOPHILS % (AUTO) 0.3 % (0-1); EOSINOPHILS # (AUTO) 0.2 X10'3 (0-0.9); EOSINOPHILS % (AUTO) 1.5 % (0-6); LYMPHOCYTES # (AUTO) 0.5 X10'3 (1.1-4.8); LYMPHOCYTES % (AUTO) 3.9 % (21-51); MEAN CORPUSCULAR HEMOGLOBIN 26.8 PG (27.0-31.0); MEAN CORPUSCULAR HGB CONC 32.1 g/dL (33.0-36.5); MEAN CORPUSCULAR VOLUME 83.6 FL (78-98); MEAN PLATELET VOLUME 8.9 FL (7.4-10.4); MONOCYTES # (AUTO) 0.5 X10'3 (0-0.9); NEUTROPHILS % (AUTO) 90.3 % (42-75); PLATELET COUNT 288 X10'3 (140-440); RED BLOOD COUNT 2.59 X10'6 (4.70-6.10); RED CELL DISTRIBUTION WIDTH 24.3 % (11.5-14.5); WHITE BLOOD COUNT 12.2 X10'3 (4.5-11.0)
[2020-06-06 03:35] LABS: HEMATOCRIT 21.7 % (42.0-52.0)
[2020-06-06] MEDS: ipratropium/albuterol 3ml nebule NEB SCH ×6 (03:39→23:52)
[2020-06-06 03:44] LABS: ALANINE AMINOTRANSFERASE 33 U/L (12-78); ALBUMIN 2.4 G/DL (3.4-5.0); ALBUMIN/GLOBULIN RATIO 0.9 (1.1-1.5); ALKALINE PHOSPHATASE 80 IU/L (46-116); ANION GAP 12 (8-16); ASPARTATE AMINO TRANSFERASE 39 U/L (10-37); BILIRUBIN,TOTAL 3.6 MG/DL (0.1-1.0); BLOOD UREA NITROGEN 85 MG/DL (7-18); BUN/CREATININE RATIO 26.5 (5.4-32.0); CALCIUM 7.6 MG/DL (8.5-10.1); CHLORIDE 102 MMOL/L (99-107); CREATININE 3.21 MG/DL (0.60-1.10); GLUCOSE 171 MG/DL (70-104); MAGNESIUM 2.8 MG/DL (1.5-2.4); PHOSPHORUS 7.6 MG/DL (2.3-4.5); SODIUM 134 MMOL/L (135-145); TOTAL CARBON DIOXIDE 20.3 MMOL/L (24-32); TOTAL PROTEIN 5.2 G/DL (6.4-8.2); eGFR 19 ML/MIN
[2020-06-06 03:46] LABS: POTASSIUM 6.2 MMOL/L (3.5-5.1)
[2020-06-06 03:50] LABS: ABG BASE EXCESS -9.4 mmol/L (-2.0-2.0); ABG HCO3 17.3 mmol/L (22.0-26.0); ABG OXYGEN SATURATION 94.6 % (94-97); ABG PCO2 (T) 42.1 mmHg (35.0-48.0); ABG PO2 (T) 83.8 mmHg (75.0-100.0); FCOHb 0.1 % (0.0-3.9); FMetHb 0.3 % (0.0-1.5); FO2Hb 94.2 % (94-97); PATIENT TEMPERATURE 37.2; PEEP 5 cm H2O; RESPIRATORY RATE 16 b/min; TIDAL VOLUME 600 mL; TOTAL HEMOGLOBIN 7.7 G/dl (14.0-18.0)
--- NOTE | 2020-06-06 03:50 | NUR ---
critical results of h/h and k+. yesterday h/h 9.6/29.7, today 7.0/21.7 - no s/sx obvious bleeding. ct drainage is serous b/l, terri drain is brown/orange in color, ngt brown/red no change from earlier in color or amount. potassium 6.2, andrew contreras was called to make aware of these numbers. i have sent a redraw cbc to confirm results. levophed 0.2 ug/kg/min. this is same dose at start of shift. no orders at this time. andrew is aware i have sent a stat cbc f/u
[2020-06-06] MEDS: FENTANYL-0.9 % NACL/PF 100 ML IV PRN ×4 (04:02→21:31)
[2020-06-06 04:06] LABS: BASOPHILS % (AUTO) 0.3 % (0-1); EOSINOPHILS # (AUTO) 0.2 X10'3 (0-0.9); EOSINOPHILS % (AUTO) 1.6 % (0-6); LYMPHOCYTES # (AUTO) 0.5 X10'3 (1.1-4.8); LYMPHOCYTES % (AUTO) 4.1 % (21-51); MEAN CORPUSCULAR HEMOGLOBIN 26.9 PG (27.0-31.0); MEAN CORPUSCULAR VOLUME 83.8 FL (78-98); MEAN PLATELET VOLUME 8.8 FL (7.4-10.4); MONOCYTES # (AUTO) 0.2 X10'3 (0-0.9); MONOCYTES % (AUTO) 1.9 % (2-12); NEUTROPHILS # (AUTO) 10.9 X10'3 (1.8-7.7); NEUTROPHILS % (AUTO) 92.1 % (42-75); PLATELET COUNT 268 X10'3 (140-440); RED BLOOD COUNT 2.54 X10'6 (4.70-6.10); RED CELL DISTRIBUTION WIDTH 24.3 % (11.5-14.5); WHITE BLOOD COUNT 11.9 X10'3 (4.5-11.0)
[2020-06-06 04:16] LABS: NUCLEATED RED BLOOD CELLS 1 /100WBC (0-0); TOTAL CELLS COUNTED 100
[2020-06-06 04:18] LABS: ANISOCYTOSIS 3+; ELLIPTOCYTES FEW; HYPOCHROMASIA 1+; PLATELET ESTIMATE NORMAL; TARGET CELLS FEW; TEAR DROP CELLS FEW
[2020-06-06 04:19] LABS: ACANTHOCYTES 1+; BURR CELLS FEW
[2020-06-06 04:27] LABS: HEMATOCRIT 21.3 % (42.0-52.0); HEMOGLOBIN 6.8 g/dl (14.0-17.9)
[2020-06-06] MEDS ORDERED: dextrose 50%-water 50ml dispensing syringe IV ONE (04:30)
[2020-06-06] MEDS ORDERED: insulin regular, human U-100 3ml vial - multi-dose IV ONE (04:30)
[2020-06-06] MEDS ORDERED: calcium chloride 100 MG/1 ML inj IV ONE (04:30)
[2020-06-06] MEDS: amiodarone/D5 360MG/200ML BAG 200 ML IV SCH (04:46)
--- NOTE | 2020-06-06 04:48 | NUR ---
call to andrew aguilar np . follow up h/h 6.8/.3. no orders received. there is no visible bleeding, abdomen is large but no change from previous. hemodynamics have been stable relative to this patients hemodynamic status at beginning of shift. i have not been able to wean down the levophed but i have never needed to increase the gtt. svv 11, see kevyn trak for hemodynamic numbers. currently patient with vss, no distress, recent bed and bath with no complications in turning. patient is weeping tremendous amount serous fluid into the bed. mostly from right groin s/p jabier cath. r FA as well. double padded to absorb. Addendum: 06/06/20 at 0458 by Cliff Martinez RN also received order for CaCl, Dextrose and insulin for k=6.2
[2020-06-06] MEDS: dextrose 50%-water 50ml dispensing syringe IV PRN (05:05)
[2020-06-06] MEDS: WATER IV SCH ×2 (06:42→14:22)
[2020-06-06] MEDS: DEXTROSE 5% IV SCH ×2 (06:42→14:22)
[2020-06-06] MEDS: SODIUM BICARBONATE IV SCH ×2 (06:42→14:22)
[2020-06-06] MEDS: [UNRECOGNIZED DRUG - REMARK] IV SCH ×8 (07:09→11:00)
[2020-06-06] MEDS: K and/or MAG REPLACEMENT MC SCH ×2 (08:00→20:00)
[2020-06-06] MEDS: lactobacillus rhamnosus 10,000 MMU CELLS/CAPSULE GT SCH ×2 (08:00→20:12)
[2020-06-06] MEDS: fluconazole-Diflucan 200mg/NS 100 ML IV SCH (08:30)
[2020-06-06] MEDS: pantoprazole 40 MG vial IV SCH (08:32)
[2020-06-06] MEDS ORDERED: albumin (Human) 5% 250ml 250 ML IV ONE ×2 (08:55)
[2020-06-06 09:18] LABS: BASOPHILS % (AUTO) 0.1 % (0-1); EOSINOPHILS # (AUTO) 0.2 X10'3 (0-0.9); EOSINOPHILS % (AUTO) 1.2 % (0-6); HEMATOCRIT 22.5 % (42.0-52.0); HEMOGLOBIN 7.1 g/dl (14.0-17.9); LYMPHOCYTES # (AUTO) 0.5 X10'3 (1.1-4.8); LYMPHOCYTES % (AUTO) 3.5 % (21-51); MEAN CORPUSCULAR HEMOGLOBIN 26.5 PG (27.0-31.0); MEAN CORPUSCULAR HGB CONC 31.5 g/dL (33.0-36.5); MEAN CORPUSCULAR VOLUME 84.2 FL (78-98); MEAN PLATELET VOLUME 8.8 FL (7.4-10.4); MONOCYTES # (AUTO) 0.3 X10'3 (0-0.9); NEUTROPHILS # (AUTO) 14.4 X10'3 (1.8-7.7); NEUTROPHILS % (AUTO) 93.2 % (42-75); PLATELET COUNT 292 X10'3 (140-440); RED BLOOD COUNT 2.67 X10'6 (4.70-6.10); RED CELL DISTRIBUTION WIDTH 24.4 % (11.5-14.5); WHITE BLOOD COUNT 15.4 X10'3 (4.5-11.0)
[2020-06-06] MEDS: budesonide 0.5mg/2ml UD nebule IH SCH ×2 (09:28→19:05)
[2020-06-06] MEDS: vasopressin inj. 40 UNIT in normal saline 50ml IV soln 38 ML IV SCH (09:32)
[2020-06-06 09:47] LABS: ANISOCYTOSIS 3+; HYPOCHROMASIA 1+; NUCLEATED RED BLOOD CELLS 1 /100WBC (0-0); PLATELET ESTIMATE NORMAL; TOTAL CELLS COUNTED 100
[2020-06-06] MEDS ORDERED: CISatracurium **Bolus** 2 mg/ml inj IV STA (11:00)
[2020-06-06] MEDS ORDERED: albumin (Human) 5% 250ml 250 ML IV SCH (11:00)
--- NOTE | 2020-06-06 11:51 | NUR ---
Reassessment: D/w MD at critical care rounds recommendation to d/c electrolytes from TPN as patient's electrolytes remain elevated, MD agreed, clinical pharmacist to adjust TPN. LBM 05/23 as of 06/03 and no documentation of stool output in I&O. Only bowel care is PRN MoM last given 05/23. Pt possibly to go to OR today. Would benefit from routine bowel care if actually constipated with no BMs. Will continue to follow closely and make recommendations as appropriate. Recommendations: 1) Recommend continuous 3:1 TPN using Clinimix non-E 03/21 with 100 ml 20% intralipids at goal rate of 100 ml/hr will provide total volume of 2400 ml, 2239 cals, 114 g protein, and 3.85 mg/kg/min CHO loading. 2) Prealbumin and TG q Thursday and 3) When medically indicated to resume tube feedings per MD, recommend using Vital AF 4) Daily weights 5) Routine bowel care Addendum: 06/06/20 at [address] Amended: Links added.
[2020-06-06] MEDS ORDERED: heparin 1,000 units/ml 10ml inj HE ONE ×2 (11:55)
[2020-06-06 11:58] LABS: BASOPHILS # (AUTO) 0.1 X10'3 (0-0.2); BASOPHILS % (AUTO) 0.5 % (0-1); EOSINOPHILS # (AUTO) 0.2 X10'3 (0-0.9); EOSINOPHILS % (AUTO) 1.2 % (0-6); HEMATOCRIT 22.7 % (42.0-52.0); LYMPHOCYTES # (AUTO) 0.6 X10'3 (1.1-4.8); LYMPHOCYTES % (AUTO) 3.7 % (21-51); MEAN CORPUSCULAR HEMOGLOBIN 26.3 PG (27.0-31.0); MEAN CORPUSCULAR VOLUME 84.8 FL (78-98); MEAN PLATELET VOLUME 8.8 FL (7.4-10.4); MONOCYTES # (AUTO) 0.1 X10'3 (0-0.9); MONOCYTES % (AUTO) 0.5 % (2-12); NEUTROPHILS # (AUTO) 15.8 X10'3 (1.8-7.7); NEUTROPHILS % (AUTO) 94.1 % (42-75); PLATELET COUNT 294 X10'3 (140-440); RED BLOOD COUNT 2.67 X10'6 (4.70-6.10); RED CELL DISTRIBUTION WIDTH 24.9 % (11.5-14.5); WHITE BLOOD COUNT 16.8 X10'3 (4.5-11.0)
[2020-06-06] MEDS: albumin (human) 25% 100ml IV 100 ML IV SCH ×2 (12:15→20:11)
[2020-06-06 12:20] LABS: ALANINE AMINOTRANSFERASE 34 U/L (12-78); ALBUMIN 2.9 G/DL (3.4-5.0); ALKALINE PHOSPHATASE 79 IU/L (46-116); AMYLASE 4 U/L (25-115); ANION GAP 13 (8-16); ASPARTATE AMINO TRANSFERASE 40 U/L (10-37); BILIRUBIN,TOTAL 3.5 MG/DL (0.1-1.0); BLOOD UREA NITROGEN 90 MG/DL (7-18); BUN/CREATININE RATIO 26.7 (5.4-32.0); CALCIUM 7.9 MG/DL (8.5-10.1); CHLORIDE 100 MMOL/L (99-107); CREATININE 3.37 MG/DL (0.60-1.10); GLUCOSE 156 MG/DL (70-104); LIPASE < 50 U/L (73-393); SODIUM 132 MMOL/L (135-145); TOTAL CARBON DIOXIDE 19.5 MMOL/L (24-32); TOTAL PROTEIN 5.8 G/DL (6.4-8.2); TROPONIN I 0.04 NG/ML (0.0-0.05); eGFR 18 ML/MIN
[2020-06-06 12:21] LABS: D-DIMER 9.29 MG/L FEU (0-0.50); PARTIAL THROMBOPLASTIN TIME 61 SECONDS (22-32)
[2020-06-06 12:24] LABS: POTASSIUM 6.7 MMOL/L (3.5-5.1)
[2020-06-06] MEDS ORDERED: sodium bicarbonate (8.4%) 1 mEq/ml syringe IV ONE (12:30)
[2020-06-06] MEDS ORDERED: albuterol 2.5 MG/3 ML nebule CONTNEB ONE (12:30)
[2020-06-06] MEDS ORDERED: propofol 1000mg/100ml bottle 100 ML IV SCH (12:33)
[2020-06-06 12:35] LABS: PLATELET COUNT 294 X10'3 (140-440)
[2020-06-06] MEDS ORDERED: ePHEDrine 50MG/ML INJ. ONE (12:50)
[2020-06-06] MEDS ORDERED: NORepinephrine 8 MG in NS 250 ML BAG (32 mcg/ml) IV ONE (12:50)
[2020-06-06] MEDS ORDERED: propofol 10mg/ml 20ml vial IV ONE (12:50)
[2020-06-06] MEDS ORDERED: vasoPRESSIN 20 units/ml inj. ONE (12:50)
--- NOTE | 2020-06-06 13:28 | NUR ---
Dr Cameron attempted to call son post procedure No answer from son
[2020-06-06] MEDS: DOBUTamine-DoBUTrex 500mg/D5W 250 ML IV SCH (13:46)
--- NOTE | 2020-06-06 15:08 | NUR ---
Updated MD that patient is maxed on pressors and the art line MAP is still less than 60; MAP is 70 on NIBP; orders to use NIBP to titrate drips
--- NOTE | 2020-06-06 15:31 | NUR ---
MD has been notified of all critical lab values and changes in patient condition in according to policy and procedures
[2020-06-06] MEDS ORDERED: normal saline 1000ml 100 ML IV PRN (15:42)
[2020-06-06] MEDS: albumin (human) 25% 100ml IV 100 ML IV PRN ×2 (16:01→16:10)
--- NOTE | 2020-06-06 16:18 | NUR ---
left message with DR guaman regarding Dr Meléndez request to ask if we need isolation
[2020-06-06] MEDS ORDERED: Duosol 4k/NO Calcium 5,000 ML HE SCH (16:46)
[2020-06-06] MEDS ORDERED: calcium chloride inj. 1,000 MG in normal saline 100ml IV soln 100 ML IV PRN (16:50)
[2020-06-06 16:58] LABS: HEMATOCRIT 24.1 % (42.0-52.0); HEMOGLOBIN 7.8 g/dl (14.0-17.9); MEAN CORPUSCULAR HEMOGLOBIN 27.7 PG (27.0-31.0); MEAN CORPUSCULAR HGB CONC 32.3 g/dL (33.0-36.5); MEAN CORPUSCULAR VOLUME 85.8 FL (78-98); MEAN PLATELET VOLUME 8.7 FL (7.4-10.4); PLATELET COUNT 240 X10'3 (140-440); RED BLOOD COUNT 2.81 X10'6 (4.70-6.10); RED CELL DISTRIBUTION WIDTH 22.7 % (11.5-14.5); WHITE BLOOD COUNT 13.8 X10'3 (4.5-11.0)
--- NOTE | 2020-06-06 18:00 | NUR ---
Unable to draw mixed venous. will not draw. Flotrac to art line for CO
--- NOTE | 2020-06-06 18:30 | NUR ---
Patient in room CICU 2007. I have received report from Ministerio FERGUSON and had the opportunity to ask questions and assume patient care.
[2020-06-06 19:18] LABS: HEMATOCRIT 25.6 % (42.0-52.0); MEAN CORPUSCULAR HEMOGLOBIN 28.2 PG (27.0-31.0); RED CELL DISTRIBUTION WIDTH 21.6 % (11.5-14.5)
[2020-06-06 19:20] LABS: HEMOGLOBIN 8.4 g/dl (14.0-17.9); MEAN CORPUSCULAR VOLUME 85.4 FL (78-98); MEAN PLATELET VOLUME 8.5 FL (7.4-10.4); PLATELET COUNT 228 X10'3 (140-440); WHITE BLOOD COUNT 13.5 X10'3 (4.5-11.0)
[2020-06-06] MEDS: citrate dextrose 1000ml IV sol 1,000 ML IV PRN ×2 (19:24→23:18)
[2020-06-06] MEDS: calcium chloride inj. 10,000 MG in normal saline 500ml IV soln 400 ML IV PRN (19:24)
[2020-06-06] MEDS: [UNRECOGNIZED DRUG - REMARK] HE SCH (19:25)
[2020-06-06 19:35] LABS: ALANINE AMINOTRANSFERASE 41 U/L (12-78); ALBUMIN 3.3 G/DL (3.4-5.0); ALKALINE PHOSPHATASE 85 IU/L (46-116); ANION GAP 7 (8-16); ASPARTATE AMINO TRANSFERASE 60 U/L (10-37); BILIRUBIN,TOTAL 5.5 MG/DL (0.1-1.0); BLOOD UREA NITROGEN 45 MG/DL (7-18); BUN/CREATININE RATIO 23.4 (5.4-32.0); CALCIUM 7.8 MG/DL (8.5-10.1); CHLORIDE 102 MMOL/L (99-107); CREATININE 1.92 MG/DL (0.60-1.10); GLUCOSE 95 MG/DL (70-104); POTASSIUM 3.7 MMOL/L (3.5-5.1); SODIUM 137 MMOL/L (135-145); TOTAL CARBON DIOXIDE 27.8 MMOL/L (24-32); eGFR 35 ML/MIN
[2020-06-06 19:37] LABS: AMYLASE 4 U/L (25-115); ANISOCYTOSIS 3+; LIPASE < 50 U/L (73-393); MICROCYTOSIS 1+; PLATELET ESTIMATE NORMAL; POIKILOCYTOSIS FEW; POLYCHROMASIA FEW; TARGET CELLS FEW; TOTAL CELLS COUNTED 100; TROPONIN I 0.04 NG/ML (0.0-0.05)
[2020-06-06 19:38] LABS: ALBUMIN/GLOBULIN RATIO 1.3 (1.1-1.5); TOTAL PROTEIN 5.9 G/DL (6.4-8.2)
--- NOTE | 2020-06-06 19:43 | NUR ---
Son in ER, demanding to see patient; per Dr. Choudhury son allowed to see pt briefly if accompanied by security d/t poor behavior by son. After speaking w/control panel operator crude unit,she states security at this time not feeling comfortable allowing son to visit. Acting out in ER so not going to be allowed to come up at this time.
[2020-06-06 20:10] LABS: D-DIMER 7.82 MG/L FEU (0-0.50); PARTIAL THROMBOPLASTIN TIME 58 SECONDS (22-32)
[2020-06-06] MEDS: insulin glargine (Lantus) pen - multi-dose SQ SCH (20:57)
--- NOTE | 2020-06-06 21:00 | NUR ---
Daughter was updated by phone, son was expected to visit but restricted by security due to his behavior. Pt has large open abdomen, intestines are seen through dressing and continue to swell. Dressing was reinforced as it was sliding off due to drainage and increased swelling. Pt has cough with deep suctioning and has moved his arms and legs very minimally with turns. Not awake or following commands. Versed has been off. CVVH started at 1999. Addendum: 06/07/20 at 0630 by Chaparrita Maier RN Pt on vent taking small volumes at increased rate. Kenna Ernandez NP aware, RTs tried to adjust settings but were unable to improve volumes.
[2020-06-06 21:31] LABS: BASOPHILS # (AUTO) 0.1 X10'3 (0-0.2); BASOPHILS % (AUTO) 0.5 % (0-1); EOSINOPHILS # (AUTO) 0.2 X10'3 (0-0.9); EOSINOPHILS % (AUTO) 1.4 % (0-6); HEMATOCRIT 25.2 % (42.0-52.0); HEMOGLOBIN 8.3 g/dl (14.0-17.9); LYMPHOCYTES # (AUTO) 0.4 X10'3 (1.1-4.8); LYMPHOCYTES % (AUTO) 2.8 % (21-51); MEAN CORPUSCULAR HEMOGLOBIN 28.1 PG (27.0-31.0); MEAN CORPUSCULAR HGB CONC 32.9 g/dL (33.0-36.5); MEAN CORPUSCULAR VOLUME 85.3 FL (78-98); MEAN PLATELET VOLUME 8.2 FL (7.4-10.4); MONOCYTES # (AUTO) 0.8 X10'3 (0-0.9); MONOCYTES % (AUTO) 6.5 % (2-12); NEUTROPHILS # (AUTO) 11.1 X10'3 (1.8-7.7); NEUTROPHILS % (AUTO) 88.8 % (42-75); PLATELET COUNT 126 X10'3 (140-440); RED BLOOD COUNT 2.95 X10'6 (4.70-6.10); RED CELL DISTRIBUTION WIDTH 21.8 % (11.5-14.5); WHITE BLOOD COUNT 12.4 X10'3 (4.5-11.0)
[2020-06-06 21:41] LABS: ALBUMIN 3.1 G/DL (3.4-5.0); ANION GAP 11 (8-16); BLOOD UREA NITROGEN 50 MG/DL (7-18); BUN/CREATININE RATIO 22.7 (5.4-32.0); CHLORIDE 101 MMOL/L (99-107); GLUCOSE 91 MG/DL (70-104); MAGNESIUM 2.2 MG/DL (1.5-2.4); SODIUM 136 MMOL/L (135-145); TOTAL CARBON DIOXIDE 23.7 MMOL/L (24-32); eGFR 30 ML/MIN
[2020-06-06 21:42] LABS: PHOSPHORUS 4.9 MG/DL (2.3-4.5)
[2020-06-06 22:26] LABS: BASOPHILS % (AUTO) 0.2 % (0-1); EOSINOPHILS # (AUTO) 0.2 X10'3 (0-0.9); EOSINOPHILS % (AUTO) 1.6 % (0-6); HEMATOCRIT 25.1 % (42.0-52.0); HEMOGLOBIN 8.1 g/dl (14.0-17.9); LYMPHOCYTES # (AUTO) 0.4 X10'3 (1.1-4.8); MEAN CORPUSCULAR HEMOGLOBIN 27.8 PG (27.0-31.0); MEAN CORPUSCULAR HGB CONC 32.5 g/dL (33.0-36.5); MEAN CORPUSCULAR VOLUME 85.5 FL (78-98); MEAN PLATELET VOLUME 8.1 FL (7.4-10.4); MONOCYTES # (AUTO) 1.1 X10'3 (0-0.9); MONOCYTES % (AUTO) 8.1 % (2-12); NEUTROPHILS # (AUTO) 11.6 X10'3 (1.8-7.7); NEUTROPHILS % (AUTO) 87.1 % (42-75); PLATELET COUNT 115 X10'3 (140-440); RED BLOOD COUNT 2.93 X10'6 (4.70-6.10); RED CELL DISTRIBUTION WIDTH 22.1 % (11.5-14.5); WHITE BLOOD COUNT 13.3 X10'3 (4.5-11.0)
[2020-06-06 22:36] LABS: ALBUMIN 3.1 G/DL (3.4-5.0); ANION GAP 11 (8-16); BLOOD UREA NITROGEN 49 MG/DL (7-18); CHLORIDE 102 MMOL/L (99-107); CREATININE 2.13 MG/DL (0.60-1.10); GLUCOSE 96 MG/DL (70-104); MAGNESIUM 2.1 MG/DL (1.5-2.4); PHOSPHORUS 4.7 MG/DL (2.3-4.5); SODIUM 137 MMOL/L (135-145); TOTAL CARBON DIOXIDE 23.6 MMOL/L (24-32); eGFR 31 ML/MIN
[2020-06-06 23:25] LABS: BASOPHILS % (AUTO) 0.1 % (0-1); EOSINOPHILS # (AUTO) 0.2 X10'3 (0-0.9); EOSINOPHILS % (AUTO) 1.4 % (0-6); HEMATOCRIT 24.7 % (42.0-52.0); LYMPHOCYTES # (AUTO) 0.4 X10'3 (1.1-4.8); LYMPHOCYTES % (AUTO) 2.9 % (21-51); MEAN CORPUSCULAR HEMOGLOBIN 27.6 PG (27.0-31.0); MEAN CORPUSCULAR HGB CONC 32.4 g/dL (33.0-36.5); MEAN CORPUSCULAR VOLUME 85.4 FL (78-98); MEAN PLATELET VOLUME 7.7 FL (7.4-10.4); MONOCYTES # (AUTO) 1.2 X10'3 (0-0.9); MONOCYTES % (AUTO) 8.1 % (2-12); NEUTROPHILS # (AUTO) 12.4 X10'3 (1.8-7.7); NEUTROPHILS % (AUTO) 87.5 % (42-75); PLATELET COUNT 112 X10'3 (140-440); RED BLOOD COUNT 2.89 X10'6 (4.70-6.10); WHITE BLOOD COUNT 14.2 X10'3 (4.5-11.0)
[2020-06-06 23:36] LABS: ALBUMIN 2.9 G/DL (3.4-5.0); ANION GAP 11 (8-16); BLOOD UREA NITROGEN 48 MG/DL (7-18); CHLORIDE 102 MMOL/L (99-107); CREATININE 2.09 MG/DL (0.60-1.10); GLUCOSE 101 MG/DL (70-104); MAGNESIUM 2.1 MG/DL (1.5-2.4); SODIUM 137 MMOL/L (135-145); TOTAL CARBON DIOXIDE 24.2 MMOL/L (24-32); eGFR 32 ML/MIN
[2020-06-06 23:37] LABS: PHOSPHORUS 4.7 MG/DL (2.3-4.5); POTASSIUM 4.1 MMOL/L (3.5-5.1)
[2020-06-07] VITALS (27 sets, daily range): BP systolic 84–149; BP diastolic 44–75
[2020-06-07] MEDS: NORepinephrine inj. 32 MG in normal saline 250ml IV soln 218 ML IV SCH ×10 (00:03→22:42)
[2020-06-07] MEDS: cefepime 1GM/NS ADD-VANTAGE 100 ML IV SCH ×4 (00:19→23:36)
[2020-06-07] MEDS: metroNIDAZOLE-Flagyl 500mg/NS 100 ML IV SCH ×4 (00:20→23:36)
[2020-06-07 00:33] LABS: EOSINOPHILS # (AUTO) 0.2 X10'3 (0-0.9); HEMOGLOBIN 8.2 g/dl (14.0-17.9); LYMPHOCYTES # (AUTO) 0.5 X10'3 (1.1-4.8); MEAN PLATELET VOLUME 7.6 FL (7.4-10.4); MONOCYTES % (AUTO) 6.9 % (2-12); NEUTROPHILS # (AUTO) 13.2 X10'3 (1.8-7.7)
[2020-06-07 00:35] LABS: BASOPHILS % (AUTO) 0.2 % (0-1); EOSINOPHILS % (AUTO) 1.5 % (0-6); LYMPHOCYTES % (AUTO) 3.6 % (21-51); MEAN CORPUSCULAR HGB CONC 32.8 g/dL (33.0-36.5); MEAN CORPUSCULAR VOLUME 85.2 FL (78-98); NEUTROPHILS % (AUTO) 87.8 % (42-75); PLATELET COUNT 131 X10'3 (140-440); RED BLOOD COUNT 2.93 X10'6 (4.70-6.10); WHITE BLOOD COUNT 15.1 X10'3 (4.5-11.0)
[2020-06-07 00:47] LABS: ANION GAP 12 (8-16); BLOOD UREA NITROGEN 48 MG/DL (7-18); BUN/CREATININE RATIO 22.5 (5.4-32.0); CHLORIDE 102 MMOL/L (99-107); CREATININE 2.13 MG/DL (0.60-1.10); GLUCOSE 104 MG/DL (70-104); MAGNESIUM 2.1 MG/DL (1.5-2.4); POTASSIUM 4.1 MMOL/L (3.5-5.1); SODIUM 139 MMOL/L (135-145); TOTAL CARBON DIOXIDE 24.6 MMOL/L (24-32); eGFR 31 ML/MIN
[2020-06-07 00:48] LABS: PHOSPHORUS 4.8 MG/DL (2.3-4.5)
[2020-06-07 00:57] LABS: ANISOCYTOSIS 3+; MICROCYTOSIS 1+; NUCLEATED RED BLOOD CELLS 1 /100WBC (0-0); PLATELET ESTIMATE DECREASED; TOTAL CELLS COUNTED 100
[2020-06-07 00:58] LABS: HYPOCHROMASIA 1+; SCHISTOCYTES FEW; TARGET CELLS FEW
[2020-06-07] MEDS: [UNRECOGNIZED DRUG - REMARK] IV SCH ×8 (02:02→23:31)
[2020-06-07] MEDS: insulin regular, human U-100 3ml vial - multi-dose SQ SCH ×4 (02:08→22:18)
[2020-06-07] MEDS: mineral oil/petrolatum ophthal oint EACHEYE SCH ×4 (02:08→21:40)
[2020-06-07] MEDS: citrate dextrose 1000ml IV sol 1,000 ML IV PRN ×5 (02:51→21:40)
[2020-06-07] MEDS: albumin (human) 25% 100ml IV 100 ML IV SCH (02:52)
[2020-06-07] MEDS: ipratropium/albuterol 3ml nebule NEB SCH ×6 (03:22→23:14)
[2020-06-07] MEDS: FENTANYL-0.9 % NACL/PF 100 ML IV PRN ×2 (04:00→17:00)
[2020-06-07] MEDS: vasopressin inj. 40 UNIT in normal saline 50ml IV soln 38 ML IV SCH ×2 (04:00→21:42)
[2020-06-07 04:04] LABS: EOSINOPHILS # (AUTO) 0.2 X10'3 (0-0.9); MEAN CORPUSCULAR HEMOGLOBIN 28.3 PG (27.0-31.0)
[2020-06-07 04:06] LABS: BASOPHILS # (AUTO) 0.1 X10'3 (0-0.2); BASOPHILS % (AUTO) 0.4 % (0-1); EOSINOPHILS % (AUTO) 1.3 % (0-6); HEMATOCRIT 23.9 % (42.0-52.0); LYMPHOCYTES # (AUTO) 0.6 X10'3 (1.1-4.8); LYMPHOCYTES % (AUTO) 3.9 % (21-51); MEAN CORPUSCULAR HGB CONC 33.5 g/dL (33.0-36.5); MEAN CORPUSCULAR VOLUME 84.5 FL (78-98); MEAN PLATELET VOLUME 7.7 FL (7.4-10.4); MONOCYTES # (AUTO) 1.4 X10'3 (0-0.9); MONOCYTES % (AUTO) 9.1 % (2-12); NEUTROPHILS # (AUTO) 13.1 X10'3 (1.8-7.7); NEUTROPHILS % (AUTO) 85.3 % (42-75); PLATELET COUNT 149 X10'3 (140-440); RED BLOOD COUNT 2.83 X10'6 (4.70-6.10); RED CELL DISTRIBUTION WIDTH 22.3 % (11.5-14.5); WHITE BLOOD COUNT 15.4 X10'3 (4.5-11.0)
--- NOTE | 2020-06-07 04:12 | NUR ---
Bed scale ERROR, will not weigh. Addendum: 06/07/20 at 0415 by Chaparrita Maier RN Amended: Links added.
--- NOTE | 2020-06-07 04:14 | NUR ---
Central line not drawing blood, unable to collect. Addendum: 06/07/20 at 0415 by Chaparrita Maier RN Amended: Links added.
[2020-06-07 04:28] LABS: ALANINE AMINOTRANSFERASE 40 U/L (12-78); ALBUMIN 3.1 G/DL (3.4-5.0); ALKALINE PHOSPHATASE 71 IU/L (46-116); ANION GAP 11 (8-16); ASPARTATE AMINO TRANSFERASE 47 U/L (10-37); BLOOD UREA NITROGEN 46 MG/DL (7-18); BUN/CREATININE RATIO 21.7 (5.4-32.0); CALCIUM 8.3 MG/DL (8.5-10.1); CHLORIDE 102 MMOL/L (99-107); CREATININE 2.12 MG/DL (0.60-1.10); GLUCOSE 97 MG/DL (70-104); POTASSIUM 4.2 MMOL/L (3.5-5.1); SODIUM 138 MMOL/L (135-145); TOTAL CARBON DIOXIDE 24.8 MMOL/L (24-32); eGFR 31 ML/MIN
[2020-06-07 04:31] LABS: MAGNESIUM 2.2 MG/DL (1.5-2.4); TROPONIN I 0.05 NG/ML (0.0-0.05)
[2020-06-07 04:40] LABS: ABG BASE EXCESS -3.6 mmol/L (-2.0-2.0); ABG HCO3 24.2 mmol/L (22.0-26.0); ABG OXYGEN SATURATION 89.6 % (94-97); ABG PCO2 (T) 59.5 mmHg (35.0-48.0); ABG PO2 (T) 59.3 mmHg (75.0-100.0); FCOHb 0.7 % (0.0-3.9); FMetHb 0.2 % (0.0-1.5); FO2Hb 88.8 % (94-97); PATIENT TEMPERATURE 36.6; PEEP 5 cm H2O; RESPIRATORY RATE 12 b/min; TIDAL VOLUME 600 mL; TOTAL HEMOGLOBIN 8.4 G/dl (14.0-18.0)
[2020-06-07 04:43] LABS: ALBUMIN/GLOBULIN RATIO 1.2 (1.1-1.5); PHOSPHORUS 4.4 MG/DL (2.3-4.5); TOTAL PROTEIN 5.7 G/DL (6.4-8.2); TRIGLYCERIDES 97 MG/DL (20-135)
[2020-06-07] MEDS: [UNRECOGNIZED DRUG - REMARK] HE SCH ×10 (05:28→22:44)
--- NOTE | 2020-06-07 06:24 | NUR ---
Problems reprioritized. Patient report given, questions answered & plan of care reviewed with Christiano FERGUSON. PRBC infusing. ABD dressing draining with turns.
[2020-06-07] MEDS: budesonide 0.5mg/2ml UD nebule IH SCH ×2 (07:42→19:02)
[2020-06-07] MEDS: lactobacillus rhamnosus 10,000 MMU CELLS/CAPSULE GT SCH ×2 (07:53→21:42)
[2020-06-07] MEDS: fluconazole-Diflucan 200mg/NS 100 ML IV SCH (07:53)
[2020-06-07] MEDS: pantoprazole 40 MG vial IV SCH (07:54)
[2020-06-07] MEDS: hydrocortisone sod succ/PF 100mg/2ml inj. IV SCH ×3 (07:57→21:43)
[2020-06-07] MEDS: K and/or MAG REPLACEMENT MC SCH ×2 (08:00→20:00)
[2020-06-07] MEDS ORDERED: hydrocortisone sod succ/PF 100mg/2ml inj. IV SCH (08:00)
[2020-06-07 08:09] LABS: BASOPHILS % (AUTO) 0.3 % (0-1); EOSINOPHILS # (AUTO) 0.2 X10'3 (0-0.9); EOSINOPHILS % (AUTO) 1.4 % (0-6); HEMATOCRIT 26.3 % (42.0-52.0); HEMOGLOBIN 8.6 g/dl (14.0-17.9); LYMPHOCYTES # (AUTO) 0.5 X10'3 (1.1-4.8); LYMPHOCYTES % (AUTO) 3.5 % (21-51); MEAN CORPUSCULAR HEMOGLOBIN 27.7 PG (27.0-31.0); MEAN CORPUSCULAR HGB CONC 32.7 g/dL (33.0-36.5); MEAN CORPUSCULAR VOLUME 84.8 FL (78-98); MEAN PLATELET VOLUME 7.6 FL (7.4-10.4); MONOCYTES # (AUTO) 1.3 X10'3 (0-0.9); MONOCYTES % (AUTO) 8.5 % (2-12); NEUTROPHILS % (AUTO) 86.3 % (42-75); PLATELET COUNT 144 X10'3 (140-440); RED CELL DISTRIBUTION WIDTH 21.1 % (11.5-14.5)
[2020-06-07 08:27] LABS: ANION GAP 12 (8-16); BLOOD UREA NITROGEN 44 MG/DL (7-18); BUN/CREATININE RATIO 22.9 (5.4-32.0); CHLORIDE 101 MMOL/L (99-107); CREATININE 1.92 MG/DL (0.60-1.10); GLUCOSE 95 MG/DL (70-104); PHOSPHORUS 3.8 MG/DL (2.3-4.5); POTASSIUM 4.2 MMOL/L (3.5-5.1); SODIUM 139 MMOL/L (135-145); TOTAL CARBON DIOXIDE 26.5 MMOL/L (24-32); eGFR 35 ML/MIN
[2020-06-07] MEDS: iron sucrose complex injection 200 MG in normal saline 100ml IV soln 100 ML IV SCH (08:49)
[2020-06-07] MEDS ORDERED: amiodarone 150mg/dext, iso-os 100 ML IV ONE (09:35)
[2020-06-07 09:37] LABS: TOTAL CELLS COUNTED 100
[2020-06-07 09:38] LABS: ANISOCYTOSIS 3+; HYPOCHROMASIA 2+; NUCLEATED RED BLOOD CELLS 1 /100WBC (0-0); PLATELET ESTIMATE NORMAL; SCHISTOCYTES FEW
[2020-06-07 09:39] LABS: BURR CELLS FEW; POLYCHROMASIA FEW
[2020-06-07 10:40] LABS: OXYGEN SATURATION (MIXED VEN) 88.2 % (60-80)
[2020-06-07] MEDS: amiodarone/D5 360MG/200ML BAG 200 ML IV SCH ×3 (10:49→21:43)
[2020-06-07 12:54] LABS: EOSINOPHILS # (AUTO) 0.1 X10'3 (0-0.9); HEMOGLOBIN 8.9 g/dl (14.0-17.9); LYMPHOCYTES # (AUTO) 0.3 X10'3 (1.1-4.8); NEUTROPHILS % (AUTO) 92.5 % (42-75)
[2020-06-07 12:55] LABS: BASOPHILS % (AUTO) 0.2 % (0-1); EOSINOPHILS % (AUTO) 0.6 % (0-6); HEMATOCRIT 27.5 % (42.0-52.0); LYMPHOCYTES % (AUTO) 1.7 % (21-51); MEAN CORPUSCULAR HEMOGLOBIN 27.5 PG (27.0-31.0); MEAN CORPUSCULAR HGB CONC 32.5 g/dL (33.0-36.5); MEAN CORPUSCULAR VOLUME 84.6 FL (78-98); MEAN PLATELET VOLUME 7.6 FL (7.4-10.4); MONOCYTES # (AUTO) 0.8 X10'3 (0-0.9); NEUTROPHILS # (AUTO) 15.4 X10'3 (1.8-7.7); PLATELET COUNT 118 X10'3 (140-440); RED BLOOD COUNT 3.25 X10'6 (4.70-6.10); RED CELL DISTRIBUTION WIDTH 20.8 % (11.5-14.5); WHITE BLOOD COUNT 16.6 X10'3 (4.5-11.0)
[2020-06-07 13:06] LABS: ALBUMIN 2.9 G/DL (3.4-5.0); ANION GAP 9 (8-16); BLOOD UREA NITROGEN 43 MG/DL (7-18); BUN/CREATININE RATIO 22.1 (5.4-32.0); CHLORIDE 102 MMOL/L (99-107); CREATININE 1.95 MG/DL (0.60-1.10); GLUCOSE 108 MG/DL (70-104); POTASSIUM 4.2 MMOL/L (3.5-5.1); SODIUM 139 MMOL/L (135-145); TOTAL CARBON DIOXIDE 27.9 MMOL/L (24-32); eGFR 34 ML/MIN
[2020-06-07 13:08] LABS: PHOSPHORUS 3.6 MG/DL (2.3-4.5)
--- NOTE | 2020-06-07 13:18 | NUR ---
Son at bedside to visit for an hour with Sarah Sap Consultant at the bedside. Per Christiano Smith the son spoke with Dr. Choudhury in the elevator stating that the hospital is doing everything it can do to stabilize the patient and that a transfer out of the hospital is not an option at this time due to the patient's stability. Per the son; he wants us to continue doing everything we can to treat his father. During the son's visit, the CVVH machine clotted off and went down; dialysis nurse notified and will work to restart the machine. Most of the patient's blood returned with normal saline flush.
[2020-06-07] MEDS ORDERED: heparin 1,000 units/ml 10ml inj HE ONE ×2 (13:40)
--- NOTE | 2020-06-07 13:47 | NUR ---
Dialysis nurse called reporting she is on her way, will be close to an hour.
[2020-06-07 15:21] LABS: ABG BASE EXCESS 0.1 mmol/L (-2.0-2.0); ABG HCO3 28.3 mmol/L (22.0-26.0); ABG OXYGEN SATURATION 91.2 % (94-97); ABG PO2 (T) 64.7 mmHg (75.0-100.0); FCOHb 0.8 % (0.0-3.9); FMetHb 0.3 % (0.0-1.5); FO2Hb 90.2 % (94-97); PEEP 5 cm H2O; RESPIRATORY RATE 12 b/min; TIDAL VOLUME 600 mL; TOTAL HEMOGLOBIN 10.1 G/dl (14.0-18.0)
[2020-06-07] MEDS ORDERED: diatr meglu/diatrizoate 30ml oral sol.-(3 dose) bottle PO ONE ×2 (16:00→20:00)
[2020-06-07 16:02] LABS: EOSINOPHILS % (AUTO) 0.2 % (0-6); HEMATOCRIT 28.5 % (42.0-52.0); HEMOGLOBIN 9.3 g/dl (14.0-17.9); LYMPHOCYTES # (AUTO) 0.3 X10'3 (1.1-4.8)
[2020-06-07 16:03] LABS: BASOPHILS % (AUTO) 0.2 % (0-1); LYMPHOCYTES % (AUTO) 1.9 % (21-51); MEAN CORPUSCULAR HEMOGLOBIN 27.6 PG (27.0-31.0); MEAN CORPUSCULAR HGB CONC 32.4 g/dL (33.0-36.5); MEAN PLATELET VOLUME 7.6 FL (7.4-10.4); MONOCYTES # (AUTO) 1.1 X10'3 (0-0.9); MONOCYTES % (AUTO) 6.2 % (2-12); NEUTROPHILS # (AUTO) 16.4 X10'3 (1.8-7.7); NEUTROPHILS % (AUTO) 91.5 % (42-75); PLATELET COUNT 132 X10'3 (140-440); RED BLOOD COUNT 3.36 X10'6 (4.70-6.10); RED CELL DISTRIBUTION WIDTH 21.9 % (11.5-14.5); WHITE BLOOD COUNT 17.9 X10'3 (4.5-11.0)
[2020-06-07 16:14] LABS: ALBUMIN 2.8 G/DL (3.4-5.0); ANION GAP 6 (8-16); BLOOD UREA NITROGEN 45 MG/DL (7-18); BUN/CREATININE RATIO 21.8 (5.4-32.0); CHLORIDE 102 MMOL/L (99-107); CREATININE 2.06 MG/DL (0.60-1.10); GLUCOSE 87 MG/DL (70-104); POTASSIUM 4.7 MMOL/L (3.5-5.1); SODIUM 138 MMOL/L (135-145); TOTAL CARBON DIOXIDE 30.1 MMOL/L (24-32); eGFR 32 ML/MIN
[2020-06-07 16:15] LABS: PHOSPHORUS 3.9 MG/DL (2.3-4.5)
[2020-06-07] MEDS: calcium chloride inj. 10,000 MG in normal saline 500ml IV soln 400 ML IV PRN (16:20)
[2020-06-07 16:51] LABS: ABG BASE EXCESS -0.6 mmol/L (-2.0-2.0); ABG OXYGEN SATURATION 89.8 % (94-97); ABG PCO2 (T) 69.6 mmHg (35.0-48.0); ABG PO2 (T) 60.2 mmHg (75.0-100.0); FCOHb 0.6 % (0.0-3.9); FMetHb 0.3 % (0.0-1.5); PEEP 5 cm H2O; RESPIRATORY RATE 22 b/min; TIDAL VOLUME 500 mL
--- NOTE | 2020-06-07 17:00 | NUR ---
Dr. Contreras called with critical CO2 levels, per RT, they are having issues with ventilator and expiratory flow sensor; changes made and will recheck in an hour.
[2020-06-07 18:10] LABS: ABG BASE EXCESS -1.9 mmol/L (-2.0-2.0); ABG HCO3 26.4 mmol/L (22.0-26.0); ABG OXYGEN SATURATION 91.1 % (94-97); ABG PCO2 (T) 64.4 mmHg (35.0-48.0); ABG PO2 (T) 63.6 mmHg (75.0-100.0); FCOHb 0.1 % (0.0-3.9); PEEP 5 cm H2O; RESPIRATORY RATE 22 b/min; TIDAL VOLUME 500 mL; TOTAL HEMOGLOBIN 9.9 G/dl (14.0-18.0)
--- NOTE | 2020-06-07 18:30 | NUR ---
Problems reprioritized. Patient report given, questions answered & plan of care reviewed with Chaparrita FERGUSON.
--- NOTE | 2020-06-07 18:30 | NUR ---
Patient in room CICU 2008. I have received report from Christiano FERGUSON and had the opportunity to ask questions and assume patient care.
--- NOTE | 2020-06-07 18:32 | NUR ---
Dr. Contreras called with Critical CO2 of 64.4 which is trending down from 69.6. Patient's tidal volume improved with change in vent setting and expiratory flow sensor change.
[2020-06-07 19:35] LABS: ABG BASE EXCESS -2.9 mmol/L (-2.0-2.0); ABG HCO3 23.4 mmol/L (22.0-26.0); ABG OXYGEN SATURATION 95.2 % (94-97); ABG PCO2 (T) 48.2 mmHg (35.0-48.0); FCOHb 0.6 % (0.0-3.9); FO2Hb 94.6 % (94-97); PATIENT TEMPERATURE 37.2; PEEP 5 cm H2O; RESPIRATORY RATE 22 b/min; TIDAL VOLUME 600 mL; TOTAL HEMOGLOBIN 9.5 G/dl (14.0-18.0)
[2020-06-07 19:56] LABS: HEMOGLOBIN 9.1 g/dl (14.0-17.9); MEAN CORPUSCULAR HEMOGLOBIN 27.9 PG (27.0-31.0)
[2020-06-07 19:57] LABS: BASOPHILS % (AUTO) 0.2 % (0-1); EOSINOPHILS % (AUTO) 0.2 % (0-6); HEMATOCRIT 27.7 % (42.0-52.0); LYMPHOCYTES # (AUTO) 0.4 X10'3 (1.1-4.8); LYMPHOCYTES % (AUTO) 2.3 % (21-51); MEAN CORPUSCULAR HGB CONC 32.9 g/dL (33.0-36.5); MEAN PLATELET VOLUME 7.5 FL (7.4-10.4); MONOCYTES # (AUTO) 1.1 X10'3 (0-0.9); MONOCYTES % (AUTO) 6.5 % (2-12); NEUTROPHILS # (AUTO) 15.5 X10'3 (1.8-7.7); NEUTROPHILS % (AUTO) 90.8 % (42-75); PLATELET COUNT 104 X10'3 (140-440); RED BLOOD COUNT 3.26 X10'6 (4.70-6.10); RED CELL DISTRIBUTION WIDTH 21.2 % (11.5-14.5)
[2020-06-07 19:58] LABS: ALBUMIN 2.6 G/DL (3.4-5.0); ANION GAP 8 (8-16); BLOOD UREA NITROGEN 44 MG/DL (7-18); BUN/CREATININE RATIO 22.3 (5.4-32.0); CHLORIDE 102 MMOL/L (99-107); CREATININE 1.97 MG/DL (0.60-1.10); GLUCOSE 125 MG/DL (70-104); MAGNESIUM 2.1 MG/DL (1.5-2.4); PHOSPHORUS 3.4 MG/DL (2.3-4.5); POTASSIUM 4.7 MMOL/L (3.5-5.1); SODIUM 136 MMOL/L (135-145); TOTAL CARBON DIOXIDE 26.1 MMOL/L (24-32); eGFR 34 ML/MIN
[2020-06-07 19:59] LABS: PARTIAL THROMBOPLASTIN TIME 66 SECONDS (22-32)
--- NOTE | 2020-06-07 21:30 | NUR ---
Pt to CT at [address] ground transportation operator , RT, myself and and extra RN with pt for scan. CVVH stopped and blood was returned. Levophed titrated down to maintain goal pressures. Travels were without incident. Dr Contreras at bedside stating pt would most likely go to OR 8/7 in the afternoon. Pt Bathed and CVVH being primed to restart at 2200.
[2020-06-07] MEDS: insulin glargine (Lantus) pen - multi-dose SQ SCH (22:29)
[2020-06-07] MEDS: DOBUTamine-DoBUTrex 500mg/D5W 250 ML IV SCH (23:04)
[2020-06-08] VITALS (24 sets, daily range): BP systolic 93–129; BP diastolic 53–78
[2020-06-08] MEDS: FENTANYL-0.9 % NACL/PF 100 ML IV PRN ×5 (00:19→19:44)
[2020-06-08] MEDS: NORepinephrine inj. 32 MG in normal saline 250ml IV soln 218 ML IV SCH ×10 (01:13→23:52)
[2020-06-08 01:18] LABS: BASOPHILS % (AUTO) 0.1 % (0-1); HEMOGLOBIN 8.6 g/dl (14.0-17.9); WHITE BLOOD COUNT 15.1 X10'3 (4.5-11.0)
[2020-06-08 01:20] LABS: EOSINOPHILS % (AUTO) 0.1 % (0-6); HEMATOCRIT 26.1 % (42.0-52.0); LYMPHOCYTES # (AUTO) 0.3 X10'3 (1.1-4.8); LYMPHOCYTES % (AUTO) 2.3 % (21-51); MEAN CORPUSCULAR VOLUME 84.9 FL (78-98); MEAN PLATELET VOLUME 7.8 FL (7.4-10.4); MONOCYTES # (AUTO) 1.2 X10'3 (0-0.9); MONOCYTES % (AUTO) 7.8 % (2-12); NEUTROPHILS # (AUTO) 13.6 X10'3 (1.8-7.7); NEUTROPHILS % (AUTO) 89.7 % (42-75); PLATELET COUNT 100 X10'3 (140-440); RED BLOOD COUNT 3.08 X10'6 (4.70-6.10); RED CELL DISTRIBUTION WIDTH 20.8 % (11.5-14.5)
[2020-06-08] MEDS: citrate dextrose 1000ml IV sol 1,000 ML IV PRN ×5 (01:24→22:43)
[2020-06-08 01:28] LABS: ALANINE AMINOTRANSFERASE 50 U/L (12-78); ALBUMIN 2.4 G/DL (3.4-5.0); ALKALINE PHOSPHATASE 95 IU/L (46-116); ANION GAP 10 (8-16); ASPARTATE AMINO TRANSFERASE 58 U/L (10-37); BILIRUBIN,TOTAL 4.7 MG/DL (0.1-1.0); BLOOD UREA NITROGEN 46 MG/DL (7-18); BUN/CREATININE RATIO 21.8 (5.4-32.0); CALCIUM 8.3 MG/DL (8.5-10.1); CHLORIDE 101 MMOL/L (99-107); CREATININE 2.11 MG/DL (0.60-1.10); GLUCOSE 179 MG/DL (70-104); MAGNESIUM 1.8 MG/DL (1.5-2.4); POTASSIUM 4.5 MMOL/L (3.5-5.1); SODIUM 137 MMOL/L (135-145); TOTAL CARBON DIOXIDE 26.4 MMOL/L (24-32); eGFR 31 ML/MIN
[2020-06-08 01:32] LABS: ALBUMIN/GLOBULIN RATIO 0.9 (1.1-1.5); PHOSPHORUS 2.9 MG/DL (2.3-4.5); TOTAL PROTEIN 5.2 G/DL (6.4-8.2)
--- NOTE | 2020-06-08 01:48 | NUR ---
Titrating down pressors as able to maintain parameters. Pt still not responsive.
[2020-06-08] MEDS: hydrocortisone sod succ/PF 100mg/2ml inj. IV SCH ×4 (01:50→20:48)
[2020-06-08] MEDS: mineral oil/petrolatum ophthal oint EACHEYE SCH ×4 (01:50→20:48)
[2020-06-08] MEDS: magnesium 4gm in 100ml NS 100 ML IV PRN (01:51)
[2020-06-08] MEDS: insulin regular, human U-100 3ml vial - multi-dose SQ SCH ×4 (01:58→20:52)
[2020-06-08] MEDS: ipratropium/albuterol 3ml nebule NEB SCH ×6 (02:29→22:36)
[2020-06-08 02:55] LABS: ANISOCYTOSIS 3+; NUCLEATED RED BLOOD CELLS 1 /100WBC (0-0); PLATELET ESTIMATE DECREASED; TOTAL CELLS COUNTED 100
[2020-06-08 02:56] LABS: ACANTHOCYTES FEW; HYPOCHROMASIA 1+; POLYCHROMASIA FEW; TARGET CELLS 1+
[2020-06-08 04:05] LABS: ABG HCO3 23.7 mmol/L (22.0-26.0); ABG OXYGEN SATURATION 95.5 % (94-97); ABG PCO2 (T) 43.7 mmHg (35.0-48.0); ABG PO2 (T) 78.5 mmHg (75.0-100.0); FCOHb 0.4 % (0.0-3.9); FMetHb 0.1 % (0.0-1.5); PATIENT TEMPERATURE 36.3; PEEP 5 cm H2O; RESPIRATORY RATE 22 b/min; TIDAL VOLUME 600 mL; TOTAL HEMOGLOBIN 9.1 G/dl (14.0-18.0)
[2020-06-08] MEDS: amiodarone/D5 360MG/200ML BAG 200 ML IV SCH ×4 (04:57→21:59)
[2020-06-08] MEDS: [UNRECOGNIZED DRUG - REMARK] HE SCH ×7 (05:25→22:55)
[2020-06-08 05:29] LABS: HEMOGLOBIN 8.7 g/dl (14.0-17.9); RED CELL DISTRIBUTION WIDTH 21.4 % (11.5-14.5)
[2020-06-08 05:31] LABS: BASOPHILS % (AUTO) 0.1 % (0-1); EOSINOPHILS % (AUTO) 0.1 % (0-6); HEMATOCRIT 26.6 % (42.0-52.0); LYMPHOCYTES # (AUTO) 0.4 X10'3 (1.1-4.8); LYMPHOCYTES % (AUTO) 2.4 % (21-51); MEAN CORPUSCULAR HEMOGLOBIN 27.7 PG (27.0-31.0); MEAN CORPUSCULAR HGB CONC 32.7 g/dL (33.0-36.5); MEAN CORPUSCULAR VOLUME 84.7 FL (78-98); MEAN PLATELET VOLUME 7.9 FL (7.4-10.4); MONOCYTES # (AUTO) 0.9 X10'3 (0-0.9); MONOCYTES % (AUTO) 6.2 % (2-12); NEUTROPHILS # (AUTO) 13.9 X10'3 (1.8-7.7); NEUTROPHILS % (AUTO) 91.2 % (42-75); PLATELET COUNT 106 X10'3 (140-440); RED BLOOD COUNT 3.14 X10'6 (4.70-6.10); WHITE BLOOD COUNT 15.2 X10'3 (4.5-11.0)
[2020-06-08 05:34] LABS: ALBUMIN 2.4 G/DL (3.4-5.0); ANION GAP 11 (8-16); BLOOD UREA NITROGEN 45 MG/DL (7-18); BUN/CREATININE RATIO 21.6 (5.4-32.0); CHLORIDE 101 MMOL/L (99-107); CREATININE 2.08 MG/DL (0.60-1.10); GLUCOSE 170 MG/DL (70-104); MAGNESIUM 2.5 MG/DL (1.5-2.4); POTASSIUM 3.9 MMOL/L (3.5-5.1); SODIUM 137 MMOL/L (135-145); TOTAL CARBON DIOXIDE 24.6 MMOL/L (24-32); eGFR 32 ML/MIN
[2020-06-08 05:38] LABS: PHOSPHORUS 2.3 MG/DL (2.3-4.5)
--- NOTE | 2020-06-08 06:20 | NUR ---
Problems reprioritized. Patient report given, questions answered & plan of care reviewed with Christiano FERGUSON.
[2020-06-08 06:28] LABS: ANISOCYTOSIS 3+; LARGE PLATELETS FEW; NUCLEATED RED BLOOD CELLS 1 /100WBC (0-0); PLATELET ESTIMATE DECREASED; TOTAL CELLS COUNTED 100
[2020-06-08 06:29] LABS: POLYCHROMASIA 1+; TOXIC GRANULATION 1+
[2020-06-08 06:30] LABS: BURR CELLS 1+; SCHISTOCYTES FEW; TARGET CELLS FEW
[2020-06-08] MEDS: potassium Cl 20mEq/100mL bag 100 ML IV PRN ×4 (06:34→14:34)
[2020-06-08] MEDS ORDERED: LIDOcaine 2% 10ml TOPICAL JELLY (Urojet) TP ONE (07:05)
[2020-06-08] MEDS: budesonide 0.5mg/2ml UD nebule IH SCH ×2 (07:09→19:14)
[2020-06-08] MEDS: sodium phosphate inj. 30 MMOL in normal saline 250ml IV soln 250 ML IV PRN (07:32)
[2020-06-08] MEDS: K and/or MAG REPLACEMENT MC SCH ×2 (08:00→20:00)
[2020-06-08] MEDS: lactobacillus rhamnosus 10,000 MMU CELLS/CAPSULE GT SCH ×3 (08:00→20:48)
[2020-06-08] MEDS: iron sucrose complex injection 200 MG in normal saline 100ml IV soln 100 ML IV SCH (08:31)
[2020-06-08] MEDS: cefepime 1GM/NS ADD-VANTAGE 100 ML IV SCH ×2 (08:32→15:55)
[2020-06-08] MEDS: metroNIDAZOLE-Flagyl 500mg/NS 100 ML IV SCH ×2 (08:32→15:55)
[2020-06-08] MEDS: fluconazole-Diflucan 200mg/NS 100 ML IV SCH (08:32)
[2020-06-08] MEDS: pantoprazole 40 MG vial IV SCH (08:34)
[2020-06-08 08:58] LABS: HEMOGLOBIN 8.7 g/dl (14.0-17.9); MONOCYTES # (AUTO) 1.1 X10'3 (0-0.9)
[2020-06-08 09:00] LABS: BASOPHILS % (AUTO) 0.3 % (0-1); EOSINOPHILS % (AUTO) 0.1 % (0-6); HEMATOCRIT 26.1 % (42.0-52.0); LYMPHOCYTES # (AUTO) 0.3 X10'3 (1.1-4.8); LYMPHOCYTES % (AUTO) 1.7 % (21-51); MEAN CORPUSCULAR HEMOGLOBIN 27.9 PG (27.0-31.0); MEAN CORPUSCULAR HGB CONC 33.2 g/dL (33.0-36.5); MEAN CORPUSCULAR VOLUME 84.2 FL (78-98); MEAN PLATELET VOLUME 8.7 FL (7.4-10.4); MONOCYTES % (AUTO) 6.8 % (2-12); NEUTROPHILS # (AUTO) 14.2 X10'3 (1.8-7.7); NEUTROPHILS % (AUTO) 91.1 % (42-75); PLATELET COUNT 122 X10'3 (140-440); RED BLOOD COUNT 3.11 X10'6 (4.70-6.10); WHITE BLOOD COUNT 15.5 X10'3 (4.5-11.0)
[2020-06-08 09:10] LABS: ALBUMIN 2.3 G/DL (3.4-5.0); ANION GAP 9 (8-16); BLOOD UREA NITROGEN 44 MG/DL (7-18); CHLORIDE 102 MMOL/L (99-107); CREATININE 1.91 MG/DL (0.60-1.10); GLUCOSE 155 MG/DL (70-104); MAGNESIUM 2.3 MG/DL (1.5-2.4); POTASSIUM 4.6 MMOL/L (3.5-5.1); SODIUM 139 MMOL/L (135-145); eGFR 35 ML/MIN
[2020-06-08 09:13] LABS: PHOSPHORUS 2.3 MG/DL (2.3-4.5)
[2020-06-08 09:45] LABS: OXYGEN SATURATION (MIXED VEN) 68.5 % (60-80); PO2 MIXED VENOUS (TEMP COR) 33.8 mmHg (35-46)
[2020-06-08] MEDS: calcium chloride inj. 10,000 MG in normal saline 500ml IV soln 400 ML IV PRN (09:57)
--- NOTE | 2020-06-08 11:00 | NUR ---
Son Christiano called earlier reporting that he spoke with [facility] about a potential transfer. Dr. Choudhury and Sarah FERGUSON Case mgmt aware and spoke with patient about the possibility of a transfer. Dr. Choudhury believes a transfer is not indicated at this time.
[2020-06-08 12:58] LABS: EOSINOPHILS % (AUTO) 0.1 % (0-6); HEMATOCRIT 26.3 % (42.0-52.0); HEMOGLOBIN 8.6 g/dl (14.0-17.9)
[2020-06-08 12:59] LABS: BASOPHILS % (AUTO) 0.2 % (0-1); LYMPHOCYTES # (AUTO) 0.5 X10'3 (1.1-4.8); LYMPHOCYTES % (AUTO) 3.6 % (21-51); MEAN CORPUSCULAR HEMOGLOBIN 27.5 PG (27.0-31.0); MEAN CORPUSCULAR HGB CONC 32.9 g/dL (33.0-36.5); MEAN CORPUSCULAR VOLUME 83.6 FL (78-98); MEAN PLATELET VOLUME 8.2 FL (7.4-10.4); MONOCYTES # (AUTO) 0.8 X10'3 (0-0.9); MONOCYTES % (AUTO) 5.3 % (2-12); NEUTROPHILS # (AUTO) 13.5 X10'3 (1.8-7.7); NEUTROPHILS % (AUTO) 90.8 % (42-75); PLATELET COUNT 117 X10'3 (140-440); RED BLOOD COUNT 3.15 X10'6 (4.70-6.10); RED CELL DISTRIBUTION WIDTH 21.9 % (11.5-14.5); WHITE BLOOD COUNT 14.9 X10'3 (4.5-11.0)
[2020-06-08 13:06] LABS: ALBUMIN 2.2 G/DL (3.4-5.0); ANION GAP 9 (8-16); BLOOD UREA NITROGEN 44 MG/DL (7-18); BUN/CREATININE RATIO 23.4 (5.4-32.0); CHLORIDE 104 MMOL/L (99-107); CREATININE 1.88 MG/DL (0.60-1.10); GLUCOSE 118 MG/DL (70-104); MAGNESIUM 2.3 MG/DL (1.5-2.4); POTASSIUM 3.8 MMOL/L (3.5-5.1); SODIUM 142 MMOL/L (135-145); TOTAL CARBON DIOXIDE 29.5 MMOL/L (24-32); eGFR 36 ML/MIN
--- NOTE | 2020-06-08 15:38 | NUR ---
Reassessment: Pt back to OR today for washout. Per MD note anastomosis holding well. Continue TPN with no changes. Will continue to follow closely and make recommendations as appropriate. Recommendations: 1) Recommend continuous 3:1 TPN using Clinimix non-E 03/21 with 100 ml 20% intralipids at goal rate of 100 ml/hr will provide total volume of 2400 ml, 2239 cals, 114 g protein, and 3.85 mg/kg/min CHO loading. 2) Prealbumin and TG q Thursday and 3) When medically indicated to resume tube feedings per MD, recommend using Vital AF 4) Daily weights 5) Routine bowel care Addendum: 06/08/20 at [address] Amended: Links added.
[2020-06-08 15:50] LABS: HBSAG SCREEN Negative (Negative)
[2020-06-08 17:08] LABS: EOSINOPHILS % (AUTO) 0.1 % (0-6); HEMATOCRIT 25.4 % (42.0-52.0); MONOCYTES # (AUTO) 0.8 X10'3 (0-0.9); RED BLOOD COUNT 3.04 X10'6 (4.70-6.10)
[2020-06-08 17:09] LABS: BASOPHILS % (AUTO) 0.3 % (0-1); HEMOGLOBIN 8.5 g/dl (14.0-17.9); LYMPHOCYTES # (AUTO) 0.4 X10'3 (1.1-4.8); LYMPHOCYTES % (AUTO) 2.9 % (21-51); MEAN CORPUSCULAR HEMOGLOBIN 27.9 PG (27.0-31.0); MEAN CORPUSCULAR HGB CONC 33.4 g/dL (33.0-36.5); MEAN CORPUSCULAR VOLUME 83.6 FL (78-98); MEAN PLATELET VOLUME 7.9 FL (7.4-10.4); MONOCYTES % (AUTO) 5.9 % (2-12); NEUTROPHILS # (AUTO) 11.6 X10'3 (1.8-7.7); NEUTROPHILS % (AUTO) 90.8 % (42-75); PLATELET COUNT 106 X10'3 (140-440); RED CELL DISTRIBUTION WIDTH 22.2 % (11.5-14.5); WHITE BLOOD COUNT 12.8 X10'3 (4.5-11.0)
[2020-06-08 17:20] LABS: ALBUMIN 2.2 G/DL (3.4-5.0); ANION GAP 8 (8-16); BLOOD UREA NITROGEN 45 MG/DL (7-18); BUN/CREATININE RATIO 25.1 (5.4-32.0); CHLORIDE 104 MMOL/L (99-107); CREATININE 1.79 MG/DL (0.60-1.10); GLUCOSE 128 MG/DL (70-104); MAGNESIUM 2.2 MG/DL (1.5-2.4); POTASSIUM 4.1 MMOL/L (3.5-5.1); SODIUM 142 MMOL/L (135-145); TOTAL CARBON DIOXIDE 29.9 MMOL/L (24-32); eGFR 38 ML/MIN
[2020-06-08 17:21] LABS: PHOSPHORUS 2.4 MG/DL (2.3-4.5)
--- NOTE | 2020-06-08 18:29 | NUR ---
Problems reprioritized. Patient report given, questions answered & plan of care reviewed with maintenance supervisor 2nd shift RN.
--- NOTE | 2020-06-08 18:30 | NUR ---
Patient in room CICU 2008. I have received report from Christiano FERGUSON and had the opportunity to ask questions and assume patient care.
--- NOTE | 2020-06-08 20:30 | NUR ---
Dr Alarcon by to see patient. Dr Alarcon called to obtain consent for surgery from daughter Veronica. Bay by myself and Vibha Samaniego. Patient will do to surgery in the am. Andria by to change out CVVH. CVVH down for approx 30 min. while change out.
[2020-06-08] MEDS: insulin glargine (Lantus) pen - multi-dose SQ SCH (20:53)
[2020-06-08] MEDS: [UNRECOGNIZED DRUG - REMARK] IV SCH ×4 (21:00)
[2020-06-08 21:13] LABS: HEMOGLOBIN 8.6 g/dl (14.0-17.9)
[2020-06-08 21:14] LABS: BASOPHILS % (AUTO) 0.2 % (0-1); EOSINOPHILS % (AUTO) 0 % (0-6); HEMATOCRIT 25.8 % (42.0-52.0); LYMPHOCYTES # (AUTO) 0.4 X10'3 (1.1-4.8); LYMPHOCYTES % (AUTO) 2.9 % (21-51); MEAN CORPUSCULAR HEMOGLOBIN 27.9 PG (27.0-31.0); MEAN CORPUSCULAR HGB CONC 33.2 g/dL (33.0-36.5); MEAN CORPUSCULAR VOLUME 84.2 FL (78-98); MEAN PLATELET VOLUME 8.3 FL (7.4-10.4); MONOCYTES % (AUTO) 6.8 % (2-12); NEUTROPHILS # (AUTO) 13.5 X10'3 (1.8-7.7); NEUTROPHILS % (AUTO) 90.1 % (42-75); PLATELET COUNT 118 X10'3 (140-440); RED BLOOD COUNT 3.07 X10'6 (4.70-6.10); RED CELL DISTRIBUTION WIDTH 21.7 % (11.5-14.5); WHITE BLOOD COUNT 14.9 X10'3 (4.5-11.0)
[2020-06-08 21:27] LABS: ALBUMIN 2.1 G/DL (3.4-5.0); ANION GAP 8 (8-16); BLOOD UREA NITROGEN 45 MG/DL (7-18); CHLORIDE 104 MMOL/L (99-107); GLUCOSE 110 MG/DL (70-104); MAGNESIUM 2.1 MG/DL (1.5-2.4); POTASSIUM 4.1 MMOL/L (3.5-5.1); SODIUM 142 MMOL/L (135-145); TOTAL CARBON DIOXIDE 29.9 MMOL/L (24-32); eGFR 37 ML/MIN
[2020-06-08 21:33] LABS: PHOSPHORUS 2.1 MG/DL (2.3-4.5)
[2020-06-09] VITALS (27 sets, daily range): BP systolic 100–152; BP diastolic 52–90
[2020-06-09] MEDS: metroNIDAZOLE-Flagyl 500mg/NS 100 ML IV SCH ×3 (00:23→16:11)
[2020-06-09] MEDS: cefepime 1GM/NS ADD-VANTAGE 100 ML IV SCH ×3 (00:23→15:37)
[2020-06-09] MEDS: FENTANYL-0.9 % NACL/PF 100 ML IV PRN ×4 (01:09→23:14)
[2020-06-09] MEDS: [UNRECOGNIZED DRUG - REMARK] HE SCH ×11 (01:25→21:56)
[2020-06-09 01:41] LABS: BASOPHILS % (AUTO) 0.1 % (0-1); HEMOGLOBIN 8.8 g/dl (14.0-17.9); LYMPHOCYTES # (AUTO) 0.5 X10'3 (1.1-4.8); MEAN PLATELET VOLUME 8.6 FL (7.4-10.4); NEUTROPHILS # (AUTO) 14.7 X10'3 (1.8-7.7)
[2020-06-09 01:44] LABS: EOSINOPHILS % (AUTO) 0.2 % (0-6); HEMATOCRIT 26.5 % (42.0-52.0); LYMPHOCYTES % (AUTO) 3.2 % (21-51); MEAN CORPUSCULAR HGB CONC 33.2 g/dL (33.0-36.5); MEAN CORPUSCULAR VOLUME 84.2 FL (78-98); MONOCYTES % (AUTO) 6.2 % (2-12); NEUTROPHILS % (AUTO) 90.3 % (42-75); PLATELET COUNT 126 X10'3 (140-440); RED BLOOD COUNT 3.15 X10'6 (4.70-6.10); RED CELL DISTRIBUTION WIDTH 21.8 % (11.5-14.5); WHITE BLOOD COUNT 16.3 X10'3 (4.5-11.0)
[2020-06-09 01:48] LABS: ALBUMIN 2.1 G/DL (3.4-5.0); ANION GAP 9 (8-16); BLOOD UREA NITROGEN 44 MG/DL (7-18); BUN/CREATININE RATIO 24.2 (5.4-32.0); CHLORIDE 103 MMOL/L (99-107); CREATININE 1.82 MG/DL (0.60-1.10); GLUCOSE 115 MG/DL (70-104); POTASSIUM 3.9 MMOL/L (3.5-5.1); SODIUM 141 MMOL/L (135-145); TOTAL CARBON DIOXIDE 29.2 MMOL/L (24-32); eGFR 37 ML/MIN
[2020-06-09 01:51] LABS: PHOSPHORUS 1.8 MG/DL (2.3-4.5)
--- NOTE | 2020-06-09 02:00 | NUR ---
Heart rate dropped to the mid 50's. Spoke to STAFF INTERPRETER, turned off amio at this time. Will continue to monitor closely.
[2020-06-09] MEDS: insulin regular, human U-100 3ml vial - multi-dose SQ SCH ×3 (02:18→20:07)
[2020-06-09] MEDS: mineral oil/petrolatum ophthal oint EACHEYE SCH ×4 (02:19→19:45)
[2020-06-09] MEDS: hydrocortisone sod succ/PF 100mg/2ml inj. IV SCH ×4 (02:19→19:45)
[2020-06-09] MEDS: citrate dextrose 1000ml IV sol 1,000 ML IV PRN ×5 (02:20→23:43)
[2020-06-09] MEDS: NORepinephrine inj. 32 MG in normal saline 250ml IV soln 218 ML IV SCH ×9 (02:23→22:31)
[2020-06-09 02:57] LABS: ANISOCYTOSIS 3+; NUCLEATED RED BLOOD CELLS 2 /100WBC (0-0); PLATELET ESTIMATE DECREASED; TOTAL CELLS COUNTED 100
[2020-06-09 02:58] LABS: ACANTHOCYTES FEW; TARGET CELLS 2+
[2020-06-09 02:59] LABS: HYPOCHROMASIA 1+; POLYCHROMASIA FEW
[2020-06-09] MEDS: ipratropium/albuterol 3ml nebule NEB SCH ×6 (03:12→22:54)
[2020-06-09 03:25] LABS: ABG BASE EXCESS 3.8 mmol/L (-2.0-2.0); ABG HCO3 28.8 mmol/L (22.0-26.0); ABG PCO2 (T) 44.6 mmHg (35.0-48.0); ABG PO2 (T) 106.7 mmHg (75.0-100.0); FCOHb 0.4 % (0.0-3.9); FO2Hb 97.6 % (94-97); PATIENT TEMPERATURE 36.4; PEEP 5 cm H2O; RESPIRATORY RATE 22 b/min; TIDAL VOLUME 600 mL
[2020-06-09] MEDS: potassium Cl 20mEq/100mL bag 100 ML IV PRN ×2 (03:43→04:44)
[2020-06-09] MEDS: amiodarone/D5 360MG/200ML BAG 200 ML IV SCH ×4 (04:03→22:15)
[2020-06-09 05:34] LABS: BASOPHILS % (AUTO) 0.2 % (0-1); EOSINOPHILS % (AUTO) 0.1 % (0-6); HEMATOCRIT 26.1 % (42.0-52.0); HEMOGLOBIN 8.6 g/dl (14.0-17.9); LYMPHOCYTES # (AUTO) 0.7 X10'3 (1.1-4.8); LYMPHOCYTES % (AUTO) 4.7 % (21-51); MEAN CORPUSCULAR HEMOGLOBIN 27.6 PG (27.0-31.0); MEAN CORPUSCULAR HGB CONC 32.9 g/dL (33.0-36.5); MEAN CORPUSCULAR VOLUME 83.7 FL (78-98); MEAN PLATELET VOLUME 8.7 FL (7.4-10.4); MONOCYTES # (AUTO) 0.9 X10'3 (0-0.9); MONOCYTES % (AUTO) 5.9 % (2-12); NEUTROPHILS # (AUTO) 12.8 X10'3 (1.8-7.7); NEUTROPHILS % (AUTO) 89.1 % (42-75); PLATELET COUNT 119 X10'3 (140-440); RED BLOOD COUNT 3.12 X10'6 (4.70-6.10); WHITE BLOOD COUNT 14.3 X10'3 (4.5-11.0)
[2020-06-09 05:51] LABS: ALBUMIN 2.1 G/DL (3.4-5.0); ANION GAP 8 (8-16); BLOOD UREA NITROGEN 43 MG/DL (7-18); BUN/CREATININE RATIO 24.3 (5.4-32.0); CHLORIDE 104 MMOL/L (99-107); CREATININE 1.77 MG/DL (0.60-1.10); GLUCOSE 130 MG/DL (70-104); MAGNESIUM 2.1 MG/DL (1.5-2.4); SODIUM 141 MMOL/L (135-145); TOTAL CARBON DIOXIDE 28.8 MMOL/L (24-32); eGFR 38 ML/MIN
[2020-06-09 06:01] LABS: PHOSPHORUS 1.7 MG/DL (2.3-4.5)
--- NOTE | 2020-06-09 06:28 | NUR ---
Problems reprioritized. Patient report given, questions answered & plan of care reviewed with Zainab FERGUSON.
--- NOTE | 2020-06-09 06:30 | NUR ---
Patient in room CICU 2007. I have received report from Michell FERGUSON and had the opportunity to ask questions and assume patient care.
[2020-06-09] MEDS: K and/or MAG REPLACEMENT MC SCH ×2 (06:44→20:00)
[2020-06-09] MEDS: budesonide 0.5mg/2ml UD nebule IH SCH ×2 (06:53→19:12)
[2020-06-09] MEDS: fluconazole-Diflucan 200mg/NS 100 ML IV SCH (07:04)
[2020-06-09] MEDS: iron sucrose complex injection 200 MG in normal saline 100ml IV soln 100 ML IV SCH (07:17)
[2020-06-09] MEDS: pantoprazole 40 MG vial IV SCH (07:17)
[2020-06-09] MEDS: lactobacillus rhamnosus 10,000 MMU CELLS/CAPSULE GT SCH ×2 (07:18→19:45)
[2020-06-09] MEDS: calcium chloride inj. 10,000 MG in normal saline 500ml IV soln 400 ML IV PRN (08:23)
[2020-06-09 09:11] LABS: HEMATOCRIT 26.3 % (42.0-52.0); HEMOGLOBIN 8.7 g/dl (14.0-17.9); LYMPHOCYTES # (AUTO) 0.5 X10'3 (1.1-4.8); MEAN PLATELET VOLUME 8.3 FL (7.4-10.4)
[2020-06-09 09:12] LABS: BASOPHILS % (AUTO) 0.1 % (0-1); EOSINOPHILS % (AUTO) 0.1 % (0-6); MEAN CORPUSCULAR HEMOGLOBIN 27.7 PG (27.0-31.0); MEAN CORPUSCULAR VOLUME 84.1 FL (78-98); MONOCYTES # (AUTO) 0.6 X10'3 (0-0.9); MONOCYTES % (AUTO) 4.5 % (2-12); NEUTROPHILS # (AUTO) 12.3 X10'3 (1.8-7.7); NEUTROPHILS % (AUTO) 91.3 % (42-75); PLATELET COUNT 110 X10'3 (140-440); RED BLOOD COUNT 3.13 X10'6 (4.70-6.10); WHITE BLOOD COUNT 13.5 X10'3 (4.5-11.0)
[2020-06-09 09:19] LABS: ANION GAP 9 (8-16); BLOOD UREA NITROGEN 44 MG/DL (7-18); BUN/CREATININE RATIO 26.5 (5.4-32.0); CHLORIDE 103 MMOL/L (99-107); CREATININE 1.66 MG/DL (0.60-1.10); GLUCOSE 135 MG/DL (70-104); MAGNESIUM 1.9 MG/DL (1.5-2.4); SODIUM 141 MMOL/L (135-145); eGFR 41 ML/MIN
[2020-06-09 09:36] LABS: PHOSPHORUS 1.5 MG/DL (2.3-4.5)
--- NOTE | 2020-06-09 09:58 | NUR ---
CVVH taken down at 0940 for OR; both lumens of Steven in left IJ are heparin locked.
[2020-06-09 10:15] LABS: NUCLEATED RED BLOOD CELLS 3 /100WBC (0-0); TOTAL CELLS COUNTED 100
[2020-06-09 10:19] LABS: ANISOCYTOSIS 3+; PLATELET ESTIMATE DECREASED
[2020-06-09 10:20] LABS: ACANTHOCYTES FEW; BURR CELLS FEW; HYPOCHROMASIA 1+; POLYCHROMASIA FEW; TARGET CELLS 2+; TEAR DROP CELLS FEW
--- NOTE | 2020-06-09 10:20 | NUR ---
Patient to OR
[2020-06-09] MEDS ORDERED: rocuronium 10mg/ml inj IV ONE ×2 (10:22→10:41)
[2020-06-09] MEDS: dextrose 50%-water 50ml dispensing syringe IV PRN (13:53)
[2020-06-09 15:01] LABS: ABG BASE EXCESS 1.6 mmol/L (-2.0-2.0); ABG HCO3 27.1 mmol/L (22.0-26.0); ABG OXYGEN SATURATION 96.4 % (94-97); ABG PCO2 (T) 45.1 mmHg (35.0-48.0); ABG PO2 (T) 81.9 mmHg (75.0-100.0); FCOHb 0.3 % (0.0-3.9); FMetHb 0.3 % (0.0-1.5); FO2Hb 95.8 % (94-97); PATIENT TEMPERATURE 36.1; PEEP 5 cm H2O; RESPIRATORY RATE 22 b/min; TIDAL VOLUME 600 mL; TOTAL HEMOGLOBIN 9.4 G/dl (14.0-18.0)
[2020-06-09 15:15] LABS: PO2 MIXED VENOUS (TEMP COR) 38.8 mmHg (35-46)
[2020-06-09 16:12] LABS: BASOPHILS % (AUTO) 0.2 % (0-1); LYMPHOCYTES # (AUTO) 0.5 X10'3 (1.1-4.8); LYMPHOCYTES % (AUTO) 2.9 % (21-51); MONOCYTES # (AUTO) 0.5 X10'3 (0-0.9)
[2020-06-09 16:19] LABS: HEMATOCRIT 25.9 % (42.0-52.0); HEMOGLOBIN 8.6 g/dl (14.0-17.9); MEAN CORPUSCULAR HEMOGLOBIN 28.1 PG (27.0-31.0); MEAN CORPUSCULAR VOLUME 85.1 FL (78-98); MEAN PLATELET VOLUME 9.2 FL (7.4-10.4); NEUTROPHILS % (AUTO) 93.5 % (42-75); PLATELET COUNT 121 X10'3 (140-440); RED BLOOD COUNT 3.04 X10'6 (4.70-6.10); RED CELL DISTRIBUTION WIDTH 21.8 % (11.5-14.5); WHITE BLOOD COUNT 16.4 X10'3 (4.5-11.0)
[2020-06-09 16:20] LABS: EOSINOPHILS % (AUTO) 0.2 % (0-6); MONOCYTES % (AUTO) 3.2 % (2-12); NEUTROPHILS # (AUTO) 15.4 X10'3 (1.8-7.7)
[2020-06-09 16:22] LABS: ALANINE AMINOTRANSFERASE 86 U/L (12-78); ALBUMIN 1.8 G/DL (3.4-5.0); ALKALINE PHOSPHATASE 158 IU/L (46-116); ANION GAP 6 (8-16); ASPARTATE AMINO TRANSFERASE 84 U/L (10-37); BILIRUBIN,TOTAL 5.5 MG/DL (0.1-1.0); BLOOD UREA NITROGEN 52 MG/DL (7-18); BUN/CREATININE RATIO 27.1 (5.4-32.0); CALCIUM 8.6 MG/DL (8.5-10.1); CHLORIDE 103 MMOL/L (99-107); CREATININE 1.92 MG/DL (0.60-1.10); GLUCOSE 122 MG/DL (70-104); MAGNESIUM 1.8 MG/DL (1.5-2.4); POTASSIUM 4.4 MMOL/L (3.5-5.1); SODIUM 140 MMOL/L (135-145); TOTAL CARBON DIOXIDE 30.6 MMOL/L (24-32); eGFR 35 ML/MIN
[2020-06-09 16:26] LABS: ALBUMIN/GLOBULIN RATIO 0.6 (1.1-1.5); PHOSPHORUS 2.3 MG/DL (2.3-4.5); TOTAL PROTEIN 4.9 G/DL (6.4-8.2)
--- NOTE | 2020-06-09 18:09 | NUR ---
Problems reprioritized. Patient report given, questions answered & plan of care reviewed with Michell FERGUSON.
[2020-06-09] MEDS: [UNRECOGNIZED DRUG - REMARK] IV SCH ×4 (19:31)
[2020-06-09] MEDS: insulin glargine (Lantus) pen - multi-dose SQ SCH (20:08)
[2020-06-09 23:05] LABS: BASOPHILS % (AUTO) 0.2 % (0-1); EOSINOPHILS % (AUTO) 0 % (0-6); LYMPHOCYTES # (AUTO) 0.4 X10'3 (1.1-4.8); LYMPHOCYTES % (AUTO) 2.3 % (21-51); MEAN CORPUSCULAR VOLUME 85.1 FL (78-98); WHITE BLOOD COUNT 17.8 X10'3 (4.5-11.0)
[2020-06-09 23:07] LABS: HEMATOCRIT 27.1 % (42.0-52.0); MEAN CORPUSCULAR HEMOGLOBIN 28.4 PG (27.0-31.0); MEAN CORPUSCULAR HGB CONC 33.3 g/dL (33.0-36.5); MEAN PLATELET VOLUME 8.2 FL (7.4-10.4); MONOCYTES # (AUTO) 0.6 X10'3 (0-0.9); MONOCYTES % (AUTO) 3.1 % (2-12); NEUTROPHILS # (AUTO) 16.9 X10'3 (1.8-7.7); NEUTROPHILS % (AUTO) 94.4 % (42-75); PLATELET COUNT 101 X10'3 (140-440); RED BLOOD COUNT 3.19 X10'6 (4.70-6.10); RED CELL DISTRIBUTION WIDTH 22.5 % (11.5-14.5)
[2020-06-09 23:12] LABS: ALBUMIN 1.9 G/DL (3.4-5.0); ANION GAP 8 (8-16); BLOOD UREA NITROGEN 50 MG/DL (7-18); BUN/CREATININE RATIO 26.5 (5.4-32.0); CALCIUM 8.7 MG/DL (8.5-10.1); CHLORIDE 103 MMOL/L (99-107); CREATININE 1.89 MG/DL (0.60-1.10); GLUCOSE 203 MG/DL (70-104); MAGNESIUM 1.8 MG/DL (1.5-2.4); SODIUM 140 MMOL/L (135-145); TOTAL CARBON DIOXIDE 28.9 MMOL/L (24-32); eGFR 35 ML/MIN
[2020-06-09 23:14] LABS: PHOSPHORUS 1.8 MG/DL (2.3-4.5)
[2020-06-09] MEDS ORDERED: MIDAZolam 5mg/ml 2ml vial IV ONE (23:15)
[2020-06-10] VITALS (24 sets, daily range): BP systolic 91–146; BP diastolic 46–83
[2020-06-10] MEDS: metroNIDAZOLE-Flagyl 500mg/NS 100 ML IV SCH ×3 (00:17→16:20)
[2020-06-10] MEDS: cefepime 1GM/NS ADD-VANTAGE 100 ML IV SCH ×3 (00:17→16:20)
[2020-06-10] MEDS: NORepinephrine inj. 32 MG in normal saline 250ml IV soln 218 ML IV SCH ×9 (01:02→21:10)
[2020-06-10] MEDS: hydrocortisone sod succ/PF 100mg/2ml inj. IV SCH ×4 (02:19→20:17)
[2020-06-10] MEDS: mineral oil/petrolatum ophthal oint EACHEYE SCH ×4 (02:19→20:19)
[2020-06-10] MEDS: insulin regular, human U-100 3ml vial - multi-dose SQ SCH ×4 (02:22→20:21)
[2020-06-10] MEDS: ipratropium/albuterol 3ml nebule NEB SCH ×6 (03:16→23:11)
[2020-06-10] MEDS: citrate dextrose 1000ml IV sol 1,000 ML IV PRN ×4 (03:27→13:32)
[2020-06-10 03:50] LABS: ABG BASE EXCESS 3.3 mmol/L (-2.0-2.0); ABG HCO3 28.6 mmol/L (22.0-26.0); ABG OXYGEN SATURATION 97.7 % (94-97); ABG PCO2 (T) 46.4 mmHg (35.0-48.0); ABG PO2 (T) 101.7 mmHg (75.0-100.0); FCOHb 0.3 % (0.0-3.9); FMetHb 0.3 % (0.0-1.5); FO2Hb 97.1 % (94-97); PATIENT TEMPERATURE 36.7; RESPIRATORY RATE 22 b/min; TIDAL VOLUME 600 mL; TOTAL HEMOGLOBIN 9.6 G/dl (14.0-18.0)
[2020-06-10 04:03] LABS: EOSINOPHILS % (AUTO) 0.1 % (0-6); HEMOGLOBIN 8.8 g/dl (14.0-17.9); LYMPHOCYTES # (AUTO) 0.5 X10'3 (1.1-4.8)
[2020-06-10 04:05] LABS: BASOPHILS # (AUTO) 0.1 X10'3 (0-0.2); BASOPHILS % (AUTO) 0.5 % (0-1); HEMATOCRIT 26.9 % (42.0-52.0); LYMPHOCYTES % (AUTO) 2.7 % (21-51); MEAN CORPUSCULAR HEMOGLOBIN 27.7 PG (27.0-31.0); MEAN CORPUSCULAR HGB CONC 32.8 g/dL (33.0-36.5); MEAN CORPUSCULAR VOLUME 84.5 FL (78-98); MEAN PLATELET VOLUME 8.1 FL (7.4-10.4); MONOCYTES # (AUTO) 0.5 X10'3 (0-0.9); MONOCYTES % (AUTO) 2.9 % (2-12); NEUTROPHILS # (AUTO) 15.8 X10'3 (1.8-7.7); NEUTROPHILS % (AUTO) 93.8 % (42-75); PLATELET COUNT 103 X10'3 (140-440); RED BLOOD COUNT 3.18 X10'6 (4.70-6.10); RED CELL DISTRIBUTION WIDTH 22.4 % (11.5-14.5); WHITE BLOOD COUNT 16.9 X10'3 (4.5-11.0)
[2020-06-10] MEDS: amiodarone/D5 360MG/200ML BAG 200 ML IV SCH ×4 (04:19→22:31)
[2020-06-10 04:24] LABS: ALANINE AMINOTRANSFERASE 94 U/L (12-78); ALBUMIN 1.8 G/DL (3.4-5.0); ALKALINE PHOSPHATASE 178 IU/L (46-116); ANION GAP 7 (8-16); ASPARTATE AMINO TRANSFERASE 78 U/L (10-37); BILIRUBIN,TOTAL 5.7 MG/DL (0.1-1.0); BLOOD UREA NITROGEN 53 MG/DL (7-18); BUN/CREATININE RATIO 29.6 (5.4-32.0); CALCIUM 8.8 MG/DL (8.5-10.1); CHLORIDE 104 MMOL/L (99-107); CREATININE 1.79 MG/DL (0.60-1.10); GLUCOSE 147 MG/DL (70-104); MAGNESIUM 1.8 MG/DL (1.5-2.4); POTASSIUM 3.8 MMOL/L (3.5-5.1); SODIUM 140 MMOL/L (135-145); eGFR 38 ML/MIN
[2020-06-10 04:26] LABS: ANISOCYTOSIS 3+; NUCLEATED RED BLOOD CELLS 8 /100WBC (0-0); PLATELET ESTIMATE DECREASED; TOTAL CELLS COUNTED 100
[2020-06-10 04:27] LABS: POLYCHROMASIA FEW
[2020-06-10 04:28] LABS: ACANTHOCYTES FEW; ELLIPTOCYTES FEW; TARGET CELLS 2+
[2020-06-10 04:31] LABS: ALBUMIN/GLOBULIN RATIO 0.5 (1.1-1.5); PHOSPHORUS 1.4 MG/DL (2.3-4.5); TOTAL PROTEIN 5.1 G/DL (6.4-8.2)
[2020-06-10] MEDS: potassium Cl 20mEq/100mL bag 100 ML IV PRN ×2 (04:59→06:49)
--- NOTE | 2020-06-10 06:30 | NUR ---
Patient in room CICU 2007. I have received report from Michell FERGUSON and had the opportunity to ask questions and assume patient care.
--- NOTE | 2020-06-10 06:43 | NUR ---
Problems reprioritized. Patient report given, questions answered & plan of care reviewed with Mckayla FERGUSON.
[2020-06-10] MEDS: calcium chloride inj. 10,000 MG in normal saline 500ml IV soln 400 ML IV PRN (06:50)
[2020-06-10] MEDS: budesonide 0.5mg/2ml UD nebule IH SCH ×2 (06:53→19:06)
[2020-06-10] MEDS: K and/or MAG REPLACEMENT MC SCH ×2 (08:00→20:00)
[2020-06-10] MEDS: lactobacillus rhamnosus 10,000 MMU CELLS/CAPSULE GT SCH ×2 (08:00→20:00)
[2020-06-10] MEDS: FENTANYL-0.9 % NACL/PF 100 ML IV PRN ×3 (08:14→21:39)
[2020-06-10] MEDS: iron sucrose complex injection 200 MG in normal saline 100ml IV soln 100 ML IV SCH (08:46)
[2020-06-10] MEDS: pantoprazole 40 MG vial IV SCH (08:47)
[2020-06-10] MEDS: fluconazole-Diflucan 200mg/NS 100 ML IV SCH (08:47)
--- NOTE | 2020-06-10 09:00 | NUR ---
Dr. Alarcon by to round on patient, stated that he will be taking patient back to or late tomorrow 06/11/20 afternoon or early evening for a planned abdominal reexploration, possible feeding tube and wound vac change. He will see if the abdomen is ready to close while in OR. He stated not to start tube feeds or give anything through NG until gas is seen in the colostomy bag. He spoke at length with the patients daughter who had several questions and concerns. He was able to adequately answer her questions.
[2020-06-10 10:12] LABS: BASOPHILS % (AUTO) 0.2 % (0-1); HEMATOCRIT 27.5 % (42.0-52.0); LYMPHOCYTES # (AUTO) 0.5 X10'3 (1.1-4.8); MEAN CORPUSCULAR HEMOGLOBIN 27.8 PG (27.0-31.0); MEAN CORPUSCULAR HGB CONC 32.7 g/dL (33.0-36.5); WHITE BLOOD COUNT 18.5 X10'3 (4.5-11.0)
[2020-06-10 10:14] LABS: EOSINOPHILS % (AUTO) 0 % (0-6); LYMPHOCYTES % (AUTO) 2.9 % (21-51); MEAN CORPUSCULAR VOLUME 85.1 FL (78-98); MEAN PLATELET VOLUME 8.9 FL (7.4-10.4); MONOCYTES # (AUTO) 0.8 X10'3 (0-0.9); MONOCYTES % (AUTO) 4.1 % (2-12); NEUTROPHILS # (AUTO) 17.2 X10'3 (1.8-7.7); NEUTROPHILS % (AUTO) 92.8 % (42-75); PLATELET COUNT 118 X10'3 (140-440); RED BLOOD COUNT 3.24 X10'6 (4.70-6.10); RED CELL DISTRIBUTION WIDTH 22.7 % (11.5-14.5)
[2020-06-10] MEDS: [UNRECOGNIZED DRUG - REMARK] HE SCH ×6 (10:14→22:25)
[2020-06-10 10:22] LABS: ALBUMIN 1.8 G/DL (3.4-5.0); ANION GAP 7 (8-16); BLOOD UREA NITROGEN 51 MG/DL (7-18); BUN/CREATININE RATIO 28.8 (5.4-32.0); CALCIUM 8.8 MG/DL (8.5-10.1); CHLORIDE 103 MMOL/L (99-107); CREATININE 1.77 MG/DL (0.60-1.10); GLUCOSE 155 MG/DL (70-104); MAGNESIUM 1.8 MG/DL (1.5-2.4); POTASSIUM 4.3 MMOL/L (3.5-5.1); SODIUM 139 MMOL/L (135-145); TOTAL CARBON DIOXIDE 29.3 MMOL/L (24-32); eGFR 38 ML/MIN
[2020-06-10 10:25] LABS: PHOSPHORUS 1.2 MG/DL (2.3-4.5)
--- NOTE | 2020-06-10 10:30 | NUR ---
Rounds note Dr. Choudhury by to round on patient, stated to continue replacement protocols as needed, continue to pull off 200ml/hr in addition to the volume of fluids that the patient is receiving. He ordered Precedex, and Relistor and to titrate the fentanyl toto see if we can get the patient to follow commands.
[2020-06-10] MEDS ORDERED: dexmedetomidin/NS 400mcg/100ml 100 ML IV SCH (11:55)
[2020-06-10] MEDS: sodium phosphate inj. 30 MMOL in normal saline 250ml IV soln 250 ML IV PRN (12:52)
--- NOTE | 2020-06-10 15:20 | NUR ---
Talked to Jhonny Pearce in regards to patients continued drop in blood pressure, she stated to go down on the fluid removal rate to 175 and see how he responds. No other new orders at this time
[2020-06-10] MEDS: [UNRECOGNIZED DRUG - REMARK] IV SCH ×4 (16:21)
[2020-06-10] MEDS: vasopressin inj. 40 UNIT in normal saline 50ml IV soln 38 ML IV SCH (16:25)
[2020-06-10 16:27] LABS: HEMATOCRIT 27.6 % (42.0-52.0)
[2020-06-10 16:29] LABS: BASOPHILS % (AUTO) 0.1 % (0-1); EOSINOPHILS % (AUTO) 0.1 % (0-6); LYMPHOCYTES # (AUTO) 0.4 X10'3 (1.1-4.8); LYMPHOCYTES % (AUTO) 2.3 % (21-51); MEAN CORPUSCULAR HEMOGLOBIN 27.7 PG (27.0-31.0); MEAN CORPUSCULAR HGB CONC 32.4 g/dL (33.0-36.5); MEAN CORPUSCULAR VOLUME 85.5 FL (78-98); MEAN PLATELET VOLUME 8.5 FL (7.4-10.4); MONOCYTES # (AUTO) 0.7 X10'3 (0-0.9); MONOCYTES % (AUTO) 3.9 % (2-12); NEUTROPHILS # (AUTO) 17.4 X10'3 (1.8-7.7); NEUTROPHILS % (AUTO) 93.6 % (42-75); PLATELET COUNT 108 X10'3 (140-440); RED BLOOD COUNT 3.23 X10'6 (4.70-6.10); RED CELL DISTRIBUTION WIDTH 22.6 % (11.5-14.5); WHITE BLOOD COUNT 18.6 X10'3 (4.5-11.0)
[2020-06-10 16:33] LABS: ALBUMIN 1.7 G/DL (3.4-5.0); ANION GAP 8 (8-16); BLOOD UREA NITROGEN 52 MG/DL (7-18); BUN/CREATININE RATIO 32.9 (5.4-32.0); CALCIUM 8.6 MG/DL (8.5-10.1); CHLORIDE 103 MMOL/L (99-107); CREATININE 1.58 MG/DL (0.60-1.10); GLUCOSE 158 MG/DL (70-104); MAGNESIUM 1.7 MG/DL (1.5-2.4); SODIUM 141 MMOL/L (135-145); TOTAL CARBON DIOXIDE 30.1 MMOL/L (24-32); eGFR 44 ML/MIN
[2020-06-10 16:34] LABS: PHOSPHORUS 2.2 MG/DL (2.3-4.5)
--- NOTE | 2020-06-10 18:28 | NUR ---
Problems reprioritized. Patient report given, questions answered & plan of care reviewed with Michell FERGUSON.
--- NOTE | 2020-06-10 18:30 | NUR ---
Patient in room CICU 2007. I have received report from Mckayla FERGUSON and had the opportunity to ask questions and assume patient care.
[2020-06-10] MEDS: magnesium 4gm in 100ml NS 100 ML IV PRN (18:52)
--- NOTE | 2020-06-10 19:11 | NUR ---
RT at bedside administering breathing TX. patient went into AFIB with rate into 130's but not sustaining. Breathing TX stopped at this time. Within a few minutes Patient returned to normal Sinus. Will continue to monitor.
--- NOTE | 2020-06-10 19:11 | NUR ---
Breathing treatment of Duoneb and Pulmicort was stopped because the patient went into A-Fib. Heart rate was 130's.
--- NOTE | 2020-06-10 19:30 | NUR ---
Turned patient and placed pillows, patient once again in Afib. Rate in the 100's and maintains there. Spoke with November and Will start on Amnio if Rate is uncontrolled. Will continue to monitor closely.
[2020-06-10] MEDS: insulin glargine (Lantus) pen - multi-dose SQ SCH (20:21)
[2020-06-10] MEDS ORDERED: albumin (human) 25% 100 ML IV solution IV ONE (21:00)
[2020-06-10 22:09] LABS: BASOPHILS # (AUTO) 0.1 X10'3 (0-0.2); BASOPHILS % (AUTO) 0.3 % (0-1); EOSINOPHILS % (AUTO) 0.1 % (0-6); HEMATOCRIT 26.6 % (42.0-52.0); HEMOGLOBIN 8.8 g/dl (14.0-17.9); LYMPHOCYTES # (AUTO) 0.5 X10'3 (1.1-4.8); LYMPHOCYTES % (AUTO) 2.8 % (21-51); MEAN CORPUSCULAR HEMOGLOBIN 28.2 PG (27.0-31.0); MEAN CORPUSCULAR HGB CONC 33.1 g/dL (33.0-36.5); MEAN CORPUSCULAR VOLUME 85.2 FL (78-98); MEAN PLATELET VOLUME 8.4 FL (7.4-10.4); MONOCYTES # (AUTO) 0.8 X10'3 (0-0.9); MONOCYTES % (AUTO) 4.8 % (2-12); NEUTROPHILS # (AUTO) 15.3 X10'3 (1.8-7.7); PLATELET COUNT 101 X10'3 (140-440); RED BLOOD COUNT 3.12 X10'6 (4.70-6.10); RED CELL DISTRIBUTION WIDTH 22.5 % (11.5-14.5); WHITE BLOOD COUNT 16.7 X10'3 (4.5-11.0)
[2020-06-10 22:19] LABS: ALBUMIN 2.6 G/DL (3.4-5.0); ANION GAP 9 (8-16); BLOOD UREA NITROGEN 52 MG/DL (7-18); BUN/CREATININE RATIO 32.7 (5.4-32.0); CHLORIDE 103 MMOL/L (99-107); CREATININE 1.59 MG/DL (0.60-1.10); MAGNESIUM 2.3 MG/DL (1.5-2.4); POTASSIUM 3.9 MMOL/L (3.5-5.1); SODIUM 144 MMOL/L (135-145); TOTAL CARBON DIOXIDE 32.2 MMOL/L (24-32); eGFR 43 ML/MIN
[2020-06-10 22:29] LABS: GLUCOSE 113 MG/DL (70-104); PHOSPHORUS 2.2 MG/DL (2.3-4.5)
[2020-06-11] VITALS (25 sets, daily range): BP systolic 83–134; BP diastolic 53–80
[2020-06-11] MEDS: cefepime 1GM/NS ADD-VANTAGE 100 ML IV SCH ×3 (00:13→20:11)
[2020-06-11] MEDS: NORepinephrine inj. 32 MG in normal saline 250ml IV soln 218 ML IV SCH ×10 (00:14→22:20)
[2020-06-11] MEDS: metroNIDAZOLE-Flagyl 500mg/NS 100 ML IV SCH ×3 (00:29→16:05)
--- NOTE | 2020-06-11 00:30 | NUR ---
Patient continues to have decreased volumes and minute ventilations. orders received for chest xray. 010 RT and November at bedside. ETT advanced to 24 at the november requesting the expiratory flow sensory be adjusted or changed. Once the expiratory flow sensor was removed and condensation removed volumes returned to between 600-650 and minute ventilations above 10. Will continue to monitor patient closely.
[2020-06-11] MEDS: [UNRECOGNIZED DRUG - REMARK] HE SCH ×8 (00:55→23:25)
--- NOTE | 2020-06-11 01:14 | NUR ---
ETT was advanced to 24cm at the upper gums, after chest x-ray was done.
[2020-06-11] MEDS ORDERED: dexmedetomidine inj. 400 MCG in dextrose 5%-water 96 ML IV SCH (01:20)
[2020-06-11] MEDS: dexmedetomidine/D5W 100mL 100 ML IV SCH ×2 (01:44→12:05)
[2020-06-11] MEDS: hydrocortisone sod succ/PF 100mg/2ml inj. IV SCH ×4 (02:11→19:59)
[2020-06-11] MEDS: mineral oil/petrolatum ophthal oint EACHEYE SCH ×4 (02:11→19:59)
[2020-06-11] MEDS: insulin regular, human U-100 3ml vial - multi-dose SQ SCH ×4 (02:12→20:23)
[2020-06-11] MEDS: FENTANYL-0.9 % NACL/PF 100 ML IV PRN ×4 (02:14→22:35)
[2020-06-11] MEDS: calcium chloride inj. 10,000 MG in normal saline 500ml IV soln 400 ML IV PRN (02:56)
[2020-06-11] MEDS: ipratropium/albuterol 3ml nebule NEB SCH ×6 (03:17→23:15)
[2020-06-11 04:11] LABS: EOSINOPHILS % (AUTO) 0 % (0-6); NEUTROPHILS # (AUTO) 15.1 X10'3 (1.8-7.7)
[2020-06-11 04:12] LABS: BASOPHILS # (AUTO) 0.1 X10'3 (0-0.2); BASOPHILS % (AUTO) 0.4 % (0-1); HEMATOCRIT 27.4 % (42.0-52.0); HEMOGLOBIN 9.1 g/dl (14.0-17.9); LYMPHOCYTES # (AUTO) 0.6 X10'3 (1.1-4.8); LYMPHOCYTES % (AUTO) 3.5 % (21-51); MEAN CORPUSCULAR HGB CONC 33.2 g/dL (33.0-36.5); MEAN CORPUSCULAR VOLUME 84.4 FL (78-98); MEAN PLATELET VOLUME 8.4 FL (7.4-10.4); MONOCYTES # (AUTO) 0.9 X10'3 (0-0.9); MONOCYTES % (AUTO) 5.7 % (2-12); NEUTROPHILS % (AUTO) 90.4 % (42-75); PLATELET COUNT 113 X10'3 (140-440); RED BLOOD COUNT 3.24 X10'6 (4.70-6.10); RED CELL DISTRIBUTION WIDTH 22.6 % (11.5-14.5); WHITE BLOOD COUNT 16.7 X10'3 (4.5-11.0)
[2020-06-11 04:32] LABS: ALANINE AMINOTRANSFERASE 97 U/L (12-78); ALBUMIN 2.4 G/DL (3.4-5.0); ALKALINE PHOSPHATASE 222 IU/L (46-116); ANION GAP 7 (8-16); ASPARTATE AMINO TRANSFERASE 91 U/L (10-37); BILIRUBIN,TOTAL 6.9 MG/DL (0.1-1.0); BLOOD UREA NITROGEN 53 MG/DL (7-18); BUN/CREATININE RATIO 31.7 (5.4-32.0); CALCIUM 9.2 MG/DL (8.5-10.1); CHLORIDE 106 MMOL/L (99-107); CREATININE 1.67 MG/DL (0.60-1.10); GLUCOSE 120 MG/DL (70-104); MAGNESIUM 2.3 MG/DL (1.5-2.4); POTASSIUM 3.6 MMOL/L (3.5-5.1); PREALBUMIN 20.2 MG/DL (19-36); SODIUM 148 MMOL/L (135-145); TOTAL CARBON DIOXIDE 35.1 MMOL/L (24-32); eGFR 41 ML/MIN
[2020-06-11 04:34] LABS: ALBUMIN/GLOBULIN RATIO 0.8 (1.1-1.5); TOTAL PROTEIN 5.5 G/DL (6.4-8.2)
[2020-06-11] MEDS: amiodarone/D5 360MG/200ML BAG 200 ML IV SCH ×4 (04:35→22:31)
[2020-06-11] MEDS: potassium Cl 20mEq/100mL bag 100 ML IV PRN ×2 (04:51→06:13)
[2020-06-11 04:56] LABS: ABG BASE EXCESS 12.2 mmol/L (-2.0-2.0); ABG HCO3 36.3 mmol/L (22.0-26.0); ABG OXYGEN SATURATION 95.6 % (94-97); ABG PCO2 (T) 43.8 mmHg (35.0-48.0); ABG PO2 (T) 72.7 mmHg (75.0-100.0); FCOHb 0.3 % (0.0-3.9); FMetHb 0.3 % (0.0-1.5); PEEP 5 cm H2O; RESPIRATORY RATE 22 b/min; TIDAL VOLUME 600 mL; TOTAL HEMOGLOBIN 9.1 G/dl (14.0-18.0)
[2020-06-11 04:56] LABS: OXYGEN SATURATION (MIXED VEN) 68.9 % (60-80); PO2 MIXED VENOUS (TEMP COR) 32.1 mmHg (35-46)
[2020-06-11 05:03] LABS: NUCLEATED RED BLOOD CELLS 1 /100WBC (0-0); TOTAL CELLS COUNTED 100
[2020-06-11 05:04] LABS: ANISOCYTOSIS 3+; PLATELET ESTIMATE DECREASED; POLYCHROMASIA FEW; TARGET CELLS 2+
[2020-06-11 05:05] LABS: ELLIPTOCYTES FEW
--- NOTE | 2020-06-11 06:28 | NUR ---
Problems reprioritized. Patient report given, questions answered & plan of care reviewed with Mckayla FERGUSON.
[2020-06-11] MEDS: pantoprazole 40 MG vial IV SCH (07:25)
[2020-06-11] MEDS: lactobacillus rhamnosus 10,000 MMU CELLS/CAPSULE GT SCH ×2 (07:26→19:59)
[2020-06-11] MEDS: K and/or MAG REPLACEMENT MC SCH ×2 (07:26→20:00)
[2020-06-11] MEDS: iron sucrose complex injection 200 MG in normal saline 100ml IV soln 100 ML IV SCH (07:27)
[2020-06-11] MEDS: fluconazole-Diflucan 200mg/NS 100 ML IV SCH (07:28)
[2020-06-11] MEDS: budesonide 0.5mg/2ml UD nebule IH SCH ×2 (07:29→18:53)
[2020-06-11] MEDS: sodium phosphate inj. 30 MMOL in normal saline 250ml IV soln 250 ML IV PRN (09:06)
[2020-06-11] MEDS ORDERED: cefepime 1GM/NS ADD-VANTAGE 100 ML IV SCH (09:50)
[2020-06-11 10:11] LABS: EOSINOPHILS % (AUTO) 0 % (0-6); HEMOGLOBIN 8.8 g/dl (14.0-17.9); LYMPHOCYTES # (AUTO) 0.3 X10'3 (1.1-4.8); MEAN CORPUSCULAR VOLUME 84.8 FL (78-98)
[2020-06-11 10:12] LABS: BASOPHILS % (AUTO) 0.3 % (0-1); HEMATOCRIT 26.9 % (42.0-52.0); LYMPHOCYTES % (AUTO) 2.6 % (21-51); MEAN CORPUSCULAR HEMOGLOBIN 27.7 PG (27.0-31.0); MEAN CORPUSCULAR HGB CONC 32.7 g/dL (33.0-36.5); MEAN PLATELET VOLUME 8.8 FL (7.4-10.4); MONOCYTES # (AUTO) 0.7 X10'3 (0-0.9); MONOCYTES % (AUTO) 5.8 % (2-12); NEUTROPHILS # (AUTO) 11.8 X10'3 (1.8-7.7); NEUTROPHILS % (AUTO) 91.3 % (42-75); PLATELET COUNT 123 X10'3 (140-440); RED BLOOD COUNT 3.17 X10'6 (4.70-6.10); RED CELL DISTRIBUTION WIDTH 22.3 % (11.5-14.5); WHITE BLOOD COUNT 12.9 X10'3 (4.5-11.0)
[2020-06-11 10:21] LABS: ALBUMIN 2.1 G/DL (3.4-5.0); ANION GAP 6 (8-16); BLOOD UREA NITROGEN 54 MG/DL (7-18); CALCIUM 8.9 MG/DL (8.5-10.1); CHLORIDE 107 MMOL/L (99-107); CREATININE 1.59 MG/DL (0.60-1.10); GLUCOSE 159 MG/DL (70-104); MAGNESIUM 2.1 MG/DL (1.5-2.4); POTASSIUM 4.2 MMOL/L (3.5-5.1); SODIUM 151 MMOL/L (135-145); TOTAL CARBON DIOXIDE 37.6 MMOL/L (24-32); eGFR 43 ML/MIN
[2020-06-11 10:23] LABS: PHOSPHORUS 2.4 MG/DL (2.3-4.5)
--- NOTE | 2020-06-11 10:30 | NUR ---
Rounds Note Dr. Choudhury by to round on patient, stated to take the CVVH down a few hours before surgery, and to not restart CVVH as patient will transition to HD either daily or every other day as needed. Informed Dr. Choudhury of patients conversion into AFib, he sated to re start the amio at the "second dose". He also ordered a T4 and TSH, he ordered 200 of 25% albumin to hopefully increase patients volume status. No other new orders at this time
[2020-06-11] MEDS ORDERED: albumin (human) 25% 100 ML IV solution IV ONE (10:50)
[2020-06-11] MEDS: micafungin inj 100 MG in normal saline 100ml IV soln 100 ML IV SCH (11:42)
[2020-06-11] MEDS ORDERED: heparin 1,000 units/ml 10ml inj HE ONE ×3 (13:50→14:25)
[2020-06-11] MEDS ORDERED: heparin 1,000unit/ml 10ml vial 10 ML IV ONE (14:19)
[2020-06-11] MEDS ORDERED: normal saline 1000ml 250 ML IV PRN (14:19)
[2020-06-11] MEDS ORDERED: heparin 1,000 units/ml 10ml inj IV ONE (14:20)
[2020-06-11] MEDS ORDERED: epoetin 20,000 units/ml inj IV ONE (14:20)
[2020-06-11] MEDS ORDERED: ondansetron 4mg rapidly disintigrating tab PO PRN (15:15)
[2020-06-11] MEDS: [UNRECOGNIZED DRUG - REMARK] IV SCH ×4 (16:01)
[2020-06-11 16:58] LABS: BASOPHILS % (AUTO) 0.1 % (0-1); HEMOGLOBIN 8.4 g/dl (14.0-17.9); MEAN CORPUSCULAR VOLUME 84.8 FL (78-98); NEUTROPHILS % (AUTO) 88.9 % (42-75)
[2020-06-11 16:59] LABS: EOSINOPHILS % (AUTO) 0.1 % (0-6); HEMATOCRIT 25.6 % (42.0-52.0); LYMPHOCYTES # (AUTO) 0.5 X10'3 (1.1-4.8); LYMPHOCYTES % (AUTO) 4.4 % (21-51); MEAN CORPUSCULAR HEMOGLOBIN 27.7 PG (27.0-31.0); MEAN CORPUSCULAR HGB CONC 32.6 g/dL (33.0-36.5); MEAN PLATELET VOLUME 8.7 FL (7.4-10.4); MONOCYTES # (AUTO) 0.7 X10'3 (0-0.9); MONOCYTES % (AUTO) 6.5 % (2-12); NEUTROPHILS # (AUTO) 9.9 X10'3 (1.8-7.7); PLATELET COUNT 122 X10'3 (140-440); RED BLOOD COUNT 3.02 X10'6 (4.70-6.10); RED CELL DISTRIBUTION WIDTH 22.7 % (11.5-14.5); WHITE BLOOD COUNT 11.2 X10'3 (4.5-11.0)
[2020-06-11 17:21] LABS: ALBUMIN 2.7 G/DL (3.4-5.0); ANION GAP 4 (8-16); BLOOD UREA NITROGEN 62 MG/DL (7-18); BUN/CREATININE RATIO 36.3 (5.4-32.0); CALCIUM 9.2 MG/DL (8.5-10.1); CHLORIDE 107 MMOL/L (99-107); CREATININE 1.71 MG/DL (0.60-1.10); GLUCOSE 146 MG/DL (70-104); MAGNESIUM 2.1 MG/DL (1.5-2.4); POTASSIUM 4.2 MMOL/L (3.5-5.1); SODIUM 151 MMOL/L (135-145); TOTAL CARBON DIOXIDE 39.7 MMOL/L (24-32); eGFR 40 ML/MIN
[2020-06-11 17:24] LABS: PARTIAL THROMBOPLASTIN TIME 35 SECONDS (22-32)
[2020-06-11 17:37] LABS: PHOSPHORUS 3.7 MG/DL (2.3-4.5); TOTAL CELLS COUNTED 100
[2020-06-11 17:39] LABS: BANDS% (MANUAL) 12 % (0-10); LYMPHOCYTES % (MANUAL) 4 % (21-51); METAMYLEOCYTES% (MANUAL) 3 % (0-0); MYELOCYTES % (MANUAL) 5 % (0-0); NEUTROPHILS % (MANUAL) 69 % (42-75); PLATELET ESTIMATE DECREASED; REACTIVE LYMPHOCYTES % 0 % (0-0)
[2020-06-11 17:40] LABS: ANISOCYTOSIS 3+; HYPOCHROMASIA 1+
[2020-06-11 17:43] LABS: TARGET CELLS 2+
[2020-06-11 17:46] LABS: POLYCHROMASIA 2+; SCHISTOCYTES FEW; SPHEROCYTES FEW
[2020-06-11 17:48] LABS: MICROCYTOSIS FEW; NUCLEATED RED BLOOD CELLS 6 /100WBC (0-0)
--- NOTE | 2020-06-11 18:30 | NUR ---
Patient in room CICU 2007. I have received report from Mckayla FERGUSON and had the opportunity to ask questions and assume patient care.
[2020-06-11] MEDS: insulin glargine (Lantus) pen - multi-dose SQ SCH (20:24)
[2020-06-12] VITALS (27 sets, daily range): BP systolic 86–177; BP diastolic 47–96
[2020-06-12] MEDS: metroNIDAZOLE-Flagyl 500mg/NS 100 ML IV SCH ×3 (00:03→15:48)
[2020-06-12] MEDS: dexmedetomidine/D5W 100mL 100 ML IV SCH ×3 (00:06→22:54)
[2020-06-12] MEDS: NORepinephrine inj. 32 MG in normal saline 250ml IV soln 218 ML IV SCH ×9 (00:51→22:13)
[2020-06-12] MEDS: [UNRECOGNIZED DRUG - REMARK] HE SCH ×8 (01:55→21:55)
[2020-06-12] MEDS: mineral oil/petrolatum ophthal oint EACHEYE SCH ×4 (02:22→23:23)
[2020-06-12] MEDS: hydrocortisone sod succ/PF 100mg/2ml inj. IV SCH ×4 (02:22→23:12)
[2020-06-12] MEDS: ipratropium/albuterol 3ml nebule NEB SCH ×6 (02:25→23:04)
[2020-06-12] MEDS: insulin regular, human U-100 3ml vial - multi-dose SQ SCH ×3 (02:30→23:20)
[2020-06-12 02:45] LABS: BASOPHILS % (AUTO) 0.2 % (0-1); EOSINOPHILS % (AUTO) 0.1 % (0-6); HEMATOCRIT 25.3 % (42.0-52.0); HEMOGLOBIN 8.4 g/dl (14.0-17.9); LYMPHOCYTES # (AUTO) 0.4 X10'3 (1.1-4.8); LYMPHOCYTES % (AUTO) 3.5 % (21-51); MEAN CORPUSCULAR HEMOGLOBIN 28.1 PG (27.0-31.0); MEAN CORPUSCULAR HGB CONC 33.2 g/dL (33.0-36.5); MEAN CORPUSCULAR VOLUME 84.9 FL (78-98); MEAN PLATELET VOLUME 9.4 FL (7.4-10.4); MONOCYTES # (AUTO) 0.8 X10'3 (0-0.9); NEUTROPHILS # (AUTO) 9.8 X10'3 (1.8-7.7); NEUTROPHILS % (AUTO) 89.2 % (42-75); PLATELET COUNT 144 X10'3 (140-440); RED BLOOD COUNT 2.98 X10'6 (4.70-6.10); RED CELL DISTRIBUTION WIDTH 22.3 % (11.5-14.5)
[2020-06-12 03:07] LABS: PLATELET ESTIMATE NORMAL; TOTAL CELLS COUNTED 100
[2020-06-12 03:08] LABS: ANISOCYTOSIS 3+; HYPOCHROMASIA 1+; POLYCHROMASIA 2+; SCHISTOCYTES FEW; SPHEROCYTES FEW; TARGET CELLS 2+
[2020-06-12 03:10] LABS: ALANINE AMINOTRANSFERASE 129 U/L (12-78); ALBUMIN 2.4 G/DL (3.4-5.0); ALKALINE PHOSPHATASE 263 IU/L (46-116); ANION GAP 5 (8-16); ASPARTATE AMINO TRANSFERASE 116 U/L (10-37); BILIRUBIN,TOTAL 6.5 MG/DL (0.1-1.0); BLOOD UREA NITROGEN 85 MG/DL (7-18); BUN/CREATININE RATIO 37.3 (5.4-32.0); CALCIUM 8.3 MG/DL (8.5-10.1); CHLORIDE 106 MMOL/L (99-107); CREATININE 2.28 MG/DL (0.60-1.10); GLUCOSE 105 MG/DL (70-104); MAGNESIUM 2.1 MG/DL (1.5-2.4); POTASSIUM 4.8 MMOL/L (3.5-5.1); SODIUM 148 MMOL/L (135-145); TOTAL CARBON DIOXIDE 36.9 MMOL/L (24-32); eGFR 29 ML/MIN
[2020-06-12 03:11] LABS: PHOSPHORUS 3.6 MG/DL (2.3-4.5); TOTAL PROTEIN 5.1 G/DL (6.4-8.2)
[2020-06-12 03:13] LABS: ALBUMIN/GLOBULIN RATIO 0.9 (1.1-1.5)
[2020-06-12] MEDS: amiodarone/D5 360MG/200ML BAG 200 ML IV SCH ×4 (04:51→23:03)
[2020-06-12 05:05] LABS: ABG BASE EXCESS 13.1 mmol/L (-2.0-2.0); ABG HCO3 36.9 mmol/L (22.0-26.0); ABG OXYGEN SATURATION 96.3 % (94-97); ABG PCO2 (T) 44.6 mmHg (35.0-48.0); ABG PO2 (T) 88.3 mmHg (75.0-100.0); FCOHb 0.3 % (0.0-3.9); FMetHb 0.3 % (0.0-1.5); FO2Hb 95.7 % (94-97); PATIENT TEMPERATURE 37.5; PEEP 5 cm H2O; RESPIRATORY RATE 22 b/min; TIDAL VOLUME 600 mL; TOTAL HEMOGLOBIN 9.1 G/dl (14.0-18.0)
[2020-06-12] MEDS: FENTANYL-0.9 % NACL/PF 100 ML IV PRN ×3 (05:45→22:15)
--- NOTE | 2020-06-12 06:23 | NUR ---
Problems reprioritized. Patient report given, questions answered & plan of care reviewed with Mckayla FERGUSON.
--- NOTE | 2020-06-12 06:30 | NUR ---
Patient in room CICU 2007. I have received report from Michell FERGUSON and had the opportunity to ask questions and assume patient care.
[2020-06-12] MEDS: budesonide 0.5mg/2ml UD nebule IH SCH ×2 (07:15→19:11)
[2020-06-12] MEDS: cefepime 1GM/NS ADD-VANTAGE 100 ML IV SCH ×2 (07:52→20:00)
[2020-06-12] MEDS: micafungin inj 100 MG in normal saline 100ml IV soln 100 ML IV SCH (07:52)
[2020-06-12] MEDS: methylnaltrexone br 12mg/0.6ml inj***SubQ only SQ SCH (07:53)
[2020-06-12] MEDS: iron sucrose complex injection 200 MG in normal saline 100ml IV soln 100 ML IV SCH (07:53)
[2020-06-12] MEDS: pantoprazole 40 MG vial IV SCH (07:53)
[2020-06-12] MEDS: lactobacillus rhamnosus 10,000 MMU CELLS/CAPSULE GT SCH ×2 (07:54→20:00)
[2020-06-12] MEDS: K and/or MAG REPLACEMENT MC SCH ×2 (08:00→20:00)
[2020-06-12] MEDS ORDERED: normal saline 1000ml 250 ML IV PRN (08:52)
[2020-06-12] MEDS ORDERED: normal saline 1000ml 100 ML IV PRN (08:52)
[2020-06-12] MEDS ORDERED: epoetin 20,000 units/ml inj IV ONE (08:55)
[2020-06-12] MEDS ORDERED: albumin (human) 25% 100ml IV 100 ML IV PRN (08:55)
[2020-06-12] MEDS ORDERED: heparin 1,000 units/ml 10ml inj HE ONE ×3 (09:00)
[2020-06-12] MEDS: [UNRECOGNIZED DRUG - REMARK] IV SCH ×4 (12:31)
[2020-06-12] MEDS ORDERED: amiodarone in dextrose, iso-osm 150mg/100ml bag IV ONE (17:38)
[2020-06-12] MEDS ORDERED: NORepinephrine 8 MG in NS 250 ML BAG (32 mcg/ml) IV ONE (17:38)
[2020-06-12] MEDS ORDERED: sevoflurane 250ml liquid IH ONE (17:38)
[2020-06-12] MEDS ORDERED: dexmedetomidin/NS 400mcg/100mL bag IV ONE (17:38)
[2020-06-12] MEDS ORDERED: rocuronium 10mg/ml inj IV ONE (17:45)
--- NOTE | 2020-06-12 17:45 | NUR ---
Patient to OR accompanied by Anesthesia and two RN's
[2020-06-12] MEDS ORDERED: albumin (Human) 5% 250ml 250 ML IV ONE ×2 (18:06→18:17)
--- NOTE | 2020-06-12 18:22 | NUR ---
Problems reprioritized. Patient report given, questions answered & plan of care reviewed with Julianne FERGUSON.
[2020-06-12] MEDS ORDERED: ePHEDrine 50MG/ML INJ. ONE (18:53)
[2020-06-12] MEDS ORDERED: LIDOcaine 2% (20mg/ml) 5ml vial ONE ×2 (19:00)
--- NOTE | 2020-06-12 19:45 | NUR ---
Late entry: 1830:Patient in room CICU 2007. I have received report from Mckayla FERGUSON and had the opportunity to ask questions and assume patient care. Awaiting patient's arrival back from OR 1942: Received to room 2007, accompanied by MDs and surgical crew. Placed on ventilator, to phototypesetting equipment monitor, arterial line and CVP line pressure monitored. Chest tubes to suction at 20 cm. Vogt cath to gravity drainage. Dressings are dry and intact. See assessment record. CVL noted to be disloged,anesthesia notified. New CVL placed by anesthesia in the RIJ using US guidance see chart for details. Per anesthesia, abnormality visualized in lumen of RIJ via US,see chart for photo. Requested tow car driver notified, Zachary updated on patient's condition. All medications including pressors changed over to new CVL. Dr. Alarcon at bedside. orders received. Patient's family updated by surgeon. Addendum: 06/13/20 at 0051 by Julianne Beal RN Amended: Links added.
--- NOTE | 2020-06-12 20:00 | NUR ---
Line placement in progress Addendum: 06/13/20 at 0121 by Julianne Beal RN Amended: Links added.
[2020-06-12] MEDS: vasopressin inj. 40 UNIT in normal saline 50ml IV soln 38 ML IV SCH (22:12)
[2020-06-12] MEDS: insulin glargine (Lantus) pen - multi-dose SQ SCH (23:21)
[2020-06-13] VITALS (24 sets, daily range): BP systolic 94–175; BP diastolic 47–75
[2020-06-13] MEDS: [UNRECOGNIZED DRUG - REMARK] HE SCH ×5 (00:25→20:25)
[2020-06-13] MEDS: metroNIDAZOLE-Flagyl 500mg/NS 100 ML IV SCH ×3 (00:27→16:29)
[2020-06-13] MEDS: NORepinephrine inj. 32 MG in normal saline 250ml IV soln 218 ML IV SCH ×10 (02:01→22:09)
[2020-06-13] MEDS ORDERED: fentaNYL/PF 50MCG/1 ML 2ML syringe ONE (02:14)
[2020-06-13] MEDS ORDERED: fentaNYL/PF 50MCG/1 ML 2ML syringe IV ONE (02:20)
[2020-06-13] MEDS: hydrocortisone sod succ/PF 100mg/2ml inj. IV SCH ×4 (02:26→20:59)
[2020-06-13] MEDS: mineral oil/petrolatum ophthal oint EACHEYE SCH ×4 (02:26→21:01)
[2020-06-13] MEDS: [UNRECOGNIZED DRUG - REMARK] IV SCH ×4 (03:02)
[2020-06-13] MEDS: insulin regular, human U-100 3ml vial - multi-dose SQ SCH ×4 (03:04→21:11)
[2020-06-13] MEDS: ipratropium/albuterol 3ml nebule NEB SCH ×6 (03:07→23:10)
[2020-06-13 03:08] LABS: BASOPHILS % (AUTO) 0.1 % (0-1); EOSINOPHILS % (AUTO) 0 % (0-6); HEMATOCRIT 28.3 % (42.0-52.0); HEMOGLOBIN 9.3 g/dl (14.0-17.9); LYMPHOCYTES # (AUTO) 0.5 X10'3 (1.1-4.8); LYMPHOCYTES % (AUTO) 2.9 % (21-51); MEAN CORPUSCULAR HEMOGLOBIN 28.3 PG (27.0-31.0); MEAN CORPUSCULAR HGB CONC 32.7 g/dL (33.0-36.5); MEAN CORPUSCULAR VOLUME 86.5 FL (78-98); MEAN PLATELET VOLUME 9.4 FL (7.4-10.4); MONOCYTES # (AUTO) 0.8 X10'3 (0-0.9); MONOCYTES % (AUTO) 4.4 % (2-12); NEUTROPHILS # (AUTO) 15.9 X10'3 (1.8-7.7); NEUTROPHILS % (AUTO) 92.6 % (42-75); PLATELET COUNT 197 X10'3 (140-440); RED BLOOD COUNT 3.27 X10'6 (4.70-6.10); RED CELL DISTRIBUTION WIDTH 23.2 % (11.5-14.5); WHITE BLOOD COUNT 17.1 X10'3 (4.5-11.0)
[2020-06-13] MEDS: FENTANYL-0.9 % NACL/PF 100 ML IV PRN ×3 (03:12→08:33)
[2020-06-13 03:31] LABS: ALANINE AMINOTRANSFERASE 173 U/L (12-78); ALBUMIN 2.5 G/DL (3.4-5.0); ALKALINE PHOSPHATASE 292 IU/L (46-116); ANION GAP 10 (8-16); ASPARTATE AMINO TRANSFERASE 135 U/L (10-37); BLOOD UREA NITROGEN 82 MG/DL (7-18); BUN/CREATININE RATIO 37.3 (5.4-32.0); CALCIUM 7.8 MG/DL (8.5-10.1); CHLORIDE 101 MMOL/L (99-107); GLUCOSE 192 MG/DL (70-104); MAGNESIUM 1.8 MG/DL (1.5-2.4); SODIUM 138 MMOL/L (135-145); TOTAL CARBON DIOXIDE 27.5 MMOL/L (24-32); eGFR 30 ML/MIN
[2020-06-13 03:33] LABS: PHOSPHORUS 5.2 MG/DL (2.3-4.5); TOTAL PROTEIN 5.4 G/DL (6.4-8.2)
[2020-06-13 03:34] LABS: ALBUMIN/GLOBULIN RATIO 0.9 (1.1-1.5)
[2020-06-13 03:35] LABS: ABG BASE EXCESS 2.6 mmol/L (-2.0-2.0); ABG HCO3 26.9 mmol/L (22.0-26.0); ABG OXYGEN SATURATION 88.1 % (94-97); ABG PCO2 (T) 40.3 mmHg (35.0-48.0); ABG PO2 (T) 57.2 mmHg (75.0-100.0); FCOHb 0.3 % (0.0-3.9); FMetHb 0.3 % (0.0-1.5); FO2Hb 87.6 % (94-97); PATIENT TEMPERATURE 37.2; PEEP 5 cm H2O; RESPIRATORY RATE 20 b/min; TIDAL VOLUME 600 mL; TOTAL HEMOGLOBIN 9.8 G/dl (14.0-18.0)
[2020-06-13 03:56] LABS: ANISOCYTOSIS 3+; HYPOCHROMASIA 1+; PLATELET ESTIMATE NORMAL; POLYCHROMASIA 2+; SCHISTOCYTES FEW; SPHEROCYTES FEW; TARGET CELLS 2+; TOTAL CELLS COUNTED 100
[2020-06-13] MEDS ORDERED: normal saline 1000ml 250 ML IV PRN (04:01)
[2020-06-13] MEDS ORDERED: normal saline 1000ml 100 ML IV PRN (04:01)
[2020-06-13] MEDS ORDERED: albumin (human) 25% 100ml IV 100 ML IV PRN (04:05)
[2020-06-13] MEDS ORDERED: heparin 1,000 units/ml 10ml inj HE ONE (04:05)
[2020-06-13] MEDS ORDERED: epoetin 20,000 units/ml inj IV ONE (04:05)
[2020-06-13] MEDS: amiodarone/D5 360MG/200ML BAG 200 ML IV SCH ×4 (05:07→21:00)
--- NOTE | 2020-06-13 05:36 | NUR ---
Patient more tachypneic, triggering vent. Titrating sedation and pain medication for pain comfort and synchrony with the vent.
--- NOTE | 2020-06-13 06:40 | NUR ---
Problems reprioritized. Patient report given, questions answered & plan of care reviewed with Rashaun FERGUSON.
[2020-06-13] MEDS: budesonide 0.5mg/2ml UD nebule IH SCH ×2 (07:18→19:09)
[2020-06-13] MEDS: dextrose 50%-water 50ml dispensing syringe IV PRN (07:42)
--- NOTE | 2020-06-13 07:51 | NUR ---
[facility] I have received report from Julianne FERGUSON and had the opportunity to ask questions and assume patient care. Addendum: 06/13/20 at 0752 by Rashaun Noel RN timed for 42
[2020-06-13] MEDS: K and/or MAG REPLACEMENT MC SCH ×2 (07:55→20:00)
[2020-06-13] MEDS: pantoprazole 40 MG vial IV SCH (08:02)
[2020-06-13] MEDS: lactobacillus rhamnosus 10,000 MMU CELLS/CAPSULE GT SCH ×2 (08:02→20:00)
[2020-06-13] MEDS: dexmedetomidine/D5W 100mL 100 ML IV SCH ×2 (08:36→23:50)
[2020-06-13] MEDS: micafungin inj 100 MG in normal saline 100ml IV soln 100 ML IV SCH (09:26)
--- NOTE | 2020-06-13 13:18 | NUR ---
wound vac canister changed at this time
--- NOTE | 2020-06-13 13:57 | NUR ---
Reassessment: Pt OR yesterday for another washout, still has wound vac. Pt now has trach. Per MD note anastomosis holding well. Receiving CVVH. Continue TPN with no changes. Spoke with RN, possible additional wash out pending. Will continue to follow closely and make recommendations as appropriate. Recommendations: 1) Recommend continuous 3:1 TPN using Clinimix non-E 03/21 with 100 ml 20% intralipids at goal rate of 100 ml/hr will provide total volume of 2400 ml, 2239 cals, 114 g protein, and 3.85 mg/kg/min CHO loading. 2) Prealbumin and TG q Thursday and 3) When medically indicated to resume tube feedings per MD, recommend using Vital AF 4) Daily weights 5) Routine bowel care Addendum: 06/13/20 at [address] Amended: Links added.
--- NOTE | 2020-06-13 14:49 | NUR ---
daughter called at this time, and i spoke with her at length regarding pt condition. she insists that she would like an EEG done if possible because she is worried that all of this is being done and he may have a brain problem. in addition she is requesting to be able to come in and sit with him when he is taken off sedation and waking up, because 'last time he freaked out and ripped the kavin open on his stomach'.
--- NOTE | 2020-06-13 17:52 | NUR ---
dr Alarcon rounded at this time. he was asked regarding starting any sort of tube feeding, but reports that he still believes the pt to have a bowel leak and is not ready for any sort of tube feeding at this time. he reports that he has consulted dr Contreras and believes he will take him back to the OR tomorrow.
--- NOTE | 2020-06-13 18:30 | NUR ---
[facility] I have received report from Rashaun FERGUSON and had the opportunity to ask questions and assume patient care. Addendum: 06/14/20 at 0224 by Julianne Beal RN Amended: Links added.
--- NOTE | 2020-06-13 18:30 | NUR ---
Problems reprioritized. Patient report given, questions answered & plan of care reviewed with Julianne FERGUSON.
[2020-06-13] MEDS: cefepime 1GM/NS ADD-VANTAGE 100 ML IV SCH (20:59)
[2020-06-13] MEDS: insulin glargine (Lantus) pen - multi-dose SQ SCH (21:09)
[2020-06-14] VITALS (25 sets, daily range): BP systolic 91–167; BP diastolic 49–79
[2020-06-14] MEDS: [UNRECOGNIZED DRUG - REMARK] IV SCH ×12 (00:24→20:35)
[2020-06-14] MEDS: metroNIDAZOLE-Flagyl 500mg/NS 100 ML IV SCH ×4 (00:25→15:23)
[2020-06-14] MEDS: NORepinephrine inj. 32 MG in normal saline 250ml IV soln 218 ML IV SCH ×4 (00:40→08:13)
[2020-06-14] MEDS: hydrocortisone sod succ/PF 100mg/2ml inj. IV SCH ×3 (03:10→15:17)
[2020-06-14] MEDS: FENTANYL-0.9 % NACL/PF 100 ML IV PRN ×2 (03:10→12:40)
[2020-06-14] MEDS: mineral oil/petrolatum ophthal oint EACHEYE SCH ×4 (03:10→20:00)
[2020-06-14] MEDS: ipratropium/albuterol 3ml nebule NEB SCH ×6 (03:11→23:41)
[2020-06-14 03:20] LABS: BASOPHILS % (AUTO) 0.2 % (0-1); EOSINOPHILS % (AUTO) 0 % (0-6); HEMATOCRIT 28.1 % (42.0-52.0); HEMOGLOBIN 9.3 g/dl (14.0-17.9); LYMPHOCYTES # (AUTO) 0.3 X10'3 (1.1-4.8); LYMPHOCYTES % (AUTO) 1.5 % (21-51); MEAN CORPUSCULAR HEMOGLOBIN 28.1 PG (27.0-31.0); MEAN CORPUSCULAR HGB CONC 33.1 g/dL (33.0-36.5); MEAN CORPUSCULAR VOLUME 84.9 FL (78-98); MEAN PLATELET VOLUME 10.1 FL (7.4-10.4); MONOCYTES # (AUTO) 0.9 X10'3 (0-0.9); MONOCYTES % (AUTO) 4.1 % (2-12); NEUTROPHILS # (AUTO) 20.7 X10'3 (1.8-7.7); NEUTROPHILS % (AUTO) 94.2 % (42-75); PLATELET COUNT 242 X10'3 (140-440); RED BLOOD COUNT 3.31 X10'6 (4.70-6.10); RED CELL DISTRIBUTION WIDTH 24.8 % (11.5-14.5)
[2020-06-14] MEDS: insulin regular, human U-100 3ml vial - multi-dose SQ SCH ×4 (03:20→20:29)
[2020-06-14 03:26] LABS: ABG BASE EXCESS -0.6 mmol/L (-2.0-2.0); ABG HCO3 23.7 mmol/L (22.0-26.0); ABG OXYGEN SATURATION 94.9 % (94-97); ABG PCO2 (T) 36.5 mmHg (35.0-48.0); ABG PO2 (T) 75.2 mmHg (75.0-100.0); FCOHb 0.3 % (0.0-3.9); FMetHb 0.3 % (0.0-1.5); FO2Hb 94.3 % (94-97); PATIENT TEMPERATURE 36.5; PEEP 5 cm H2O; RESPIRATORY RATE 20 b/min; TIDAL VOLUME 600 mL; TOTAL HEMOGLOBIN 9.6 G/dl (14.0-18.0)
[2020-06-14 03:37] LABS: ALANINE AMINOTRANSFERASE 160 U/L (12-78); ALBUMIN 2.2 G/DL (3.4-5.0); ALKALINE PHOSPHATASE 271 IU/L (46-116); ANION GAP 12 (8-16); ASPARTATE AMINO TRANSFERASE 92 U/L (10-37); BILIRUBIN,TOTAL 6.1 MG/DL (0.1-1.0); BLOOD UREA NITROGEN 122 MG/DL (7-18); BUN/CREATININE RATIO 38.4 (5.4-32.0); CALCIUM 7.7 MG/DL (8.5-10.1); CHLORIDE 96 MMOL/L (99-107); CREATININE 3.18 MG/DL (0.60-1.10); GLUCOSE 105 MG/DL (70-104); MAGNESIUM 1.8 MG/DL (1.5-2.4); SODIUM 131 MMOL/L (135-145); TOTAL CARBON DIOXIDE 23.5 MMOL/L (24-32); eGFR 19 ML/MIN
[2020-06-14 03:39] LABS: ALBUMIN/GLOBULIN RATIO 0.8 (1.1-1.5); PHOSPHORUS 6.3 MG/DL (2.3-4.5); POTASSIUM 5.6 MMOL/L (3.5-5.1); TOTAL PROTEIN 5.1 G/DL (6.4-8.2)
[2020-06-14 04:02] LABS: ANISOCYTOSIS 3+; HYPOCHROMASIA 1+; PLATELET ESTIMATE NORMAL; POLYCHROMASIA 2+; SCHISTOCYTES FEW; SPHEROCYTES FEW; TARGET CELLS 1+; TOTAL CELLS COUNTED 100
[2020-06-14] MEDS: amiodarone/D5 360MG/200ML BAG 200 ML IV SCH ×4 (06:49→23:35)
--- NOTE | 2020-06-14 06:58 | NUR ---
Problems reprioritized. Patient report given, questions answered & plan of care reviewed with Paula FERGUSON.
[2020-06-14] MEDS: budesonide 0.5mg/2ml UD nebule IH SCH ×2 (07:18→19:09)
[2020-06-14] MEDS: K and/or MAG REPLACEMENT MC SCH ×2 (08:00→20:00)
[2020-06-14] MEDS: lactobacillus rhamnosus 10,000 MMU CELLS/CAPSULE GT SCH ×2 (08:00→20:00)
[2020-06-14] MEDS ORDERED: epoetin 20,000 units/ml inj IV ONE (08:00)
[2020-06-14] MEDS ORDERED: heparin 1,000 units/ml 10ml inj HE ONE ×2 (08:00)
[2020-06-14] MEDS: pantoprazole 40 MG vial IV SCH (08:01)
[2020-06-14] MEDS: methylnaltrexone br 12mg/0.6ml inj***SubQ only SQ SCH (08:09)
[2020-06-14] MEDS: micafungin inj 100 MG in normal saline 100ml IV soln 100 ML IV SCH (09:29)
[2020-06-14] MEDS ORDERED: albumin (human) 25% 100 ML IV solution IV ONE (10:45)
[2020-06-14] MEDS: dexmedetomidine/D5W 100mL 100 ML IV SCH ×2 (11:31→23:12)
[2020-06-14] MEDS ORDERED: meropenem inj 1 GM in normal saline 100ml IV soln 100 ML IV ONE (14:30)
--- NOTE | 2020-06-14 18:20 | NUR ---
Blood culture and culture from L-drainage site sent to Lab, Called Dr. Last per Dr. Choudhury but Dr. Last said he has not been on the case, Updated Dr. Choudhury. Dialysis done, 5L out, PICC nurse is placing PICC line now, Meropenem given. [facility], said not to pull any central lines until pt returns from OR [facility]. Gave report to Junior, told him to pull all the old lines including Steven and A-line after pt returns from OR and to use new IV lining and new med Bag for the PICC line. Consent for PICC line received from pt's daughter (Marielle).
[2020-06-14] MEDS: insulin glargine (Lantus) pen - multi-dose SQ SCH (20:30)
[2020-06-14] MEDS ORDERED: amiodarone in dextrose, iso-osm 150mg/100ml bag IV ONE (20:40)
[2020-06-14] MEDS ORDERED: sevoflurane 250ml liquid IH ONE (20:40)
[2020-06-14] MEDS: cefepime 1GM/NS ADD-VANTAGE 100 ML IV SCH (20:42)
--- NOTE | 2020-06-14 20:55 | NUR ---
PT left for surgery in hospital bed with anesthesiologist
[2020-06-14] MEDS ORDERED: meropenem inj 1 GM in normal saline 100ml IV soln 100 ML IV PRN (21:00)
[2020-06-14] MEDS ORDERED: rocuronium 10mg/ml inj IV ONE ×2 (21:33)
[2020-06-14] MEDS ORDERED: albumin (Human) 5% 250ml 250 ML IV ONE ×2 (22:21→22:40)
[2020-06-15] VITALS (25 sets, daily range): BP systolic 75–142; BP diastolic 44–78
[2020-06-15] MEDS: hydrocortisone sod succ/PF 100mg/2ml inj. IV SCH ×5 (00:25→20:41)
[2020-06-15] MEDS: metroNIDAZOLE-Flagyl 500mg/NS 100 ML IV SCH ×2 (00:31→07:45)
[2020-06-15] MEDS: mineral oil/petrolatum ophthal oint EACHEYE SCH ×4 (02:30→20:07)
[2020-06-15] MEDS: insulin regular, human U-100 3ml vial - multi-dose SQ SCH ×4 (02:47→20:04)
[2020-06-15 03:16] LABS: BASOPHILS % (AUTO) 0.2 % (0-1); EOSINOPHILS % (AUTO) 0.1 % (0-6); HEMATOCRIT 24.9 % (42.0-52.0); HEMOGLOBIN 8.1 g/dl (14.0-17.9); LYMPHOCYTES # (AUTO) 0.2 X10'3 (1.1-4.8); LYMPHOCYTES % (AUTO) 1.4 % (21-51); MEAN CORPUSCULAR HEMOGLOBIN 28.1 PG (27.0-31.0); MEAN CORPUSCULAR HGB CONC 32.8 g/dL (33.0-36.5); MEAN CORPUSCULAR VOLUME 85.9 FL (78-98); MEAN PLATELET VOLUME 9.9 FL (7.4-10.4); MONOCYTES # (AUTO) 0.7 X10'3 (0-0.9); MONOCYTES % (AUTO) 3.8 % (2-12); NEUTROPHILS # (AUTO) 16.6 X10'3 (1.8-7.7); NEUTROPHILS % (AUTO) 94.5 % (42-75); PLATELET COUNT 222 X10'3 (140-440); RED CELL DISTRIBUTION WIDTH 27.1 % (11.5-14.5); WHITE BLOOD COUNT 17.6 X10'3 (4.5-11.0)
[2020-06-15] MEDS: ipratropium/albuterol 3ml nebule NEB SCH ×6 (03:17→23:09)
[2020-06-15 03:32] LABS: ALANINE AMINOTRANSFERASE 144 U/L (12-78); ALBUMIN 2.4 G/DL (3.4-5.0); ALKALINE PHOSPHATASE 214 IU/L (46-116); ANION GAP 11 (8-16); ASPARTATE AMINO TRANSFERASE 99 U/L (10-37); BLOOD UREA NITROGEN 75 MG/DL (7-18); BUN/CREATININE RATIO 35.2 (5.4-32.0); CALCIUM 7.5 MG/DL (8.5-10.1); CHLORIDE 99 MMOL/L (99-107); CREATININE 2.13 MG/DL (0.60-1.10); GLUCOSE 150 MG/DL (70-104); MAGNESIUM 1.7 MG/DL (1.5-2.4); POTASSIUM 3.9 MMOL/L (3.5-5.1); SODIUM 133 MMOL/L (135-145); TOTAL CARBON DIOXIDE 22.8 MMOL/L (24-32); eGFR 31 ML/MIN
[2020-06-15 03:33] LABS: PHOSPHORUS 4.5 MG/DL (2.3-4.5); TOTAL PROTEIN 4.7 G/DL (6.4-8.2)
[2020-06-15 03:40] LABS: ABG BASE EXCESS -1.8 mmol/L (-2.0-2.0); ABG HCO3 21.7 mmol/L (22.0-26.0); ABG OXYGEN SATURATION 97.2 % (94-97); ABG PCO2 (T) 30.9 mmHg (35.0-48.0); ABG PO2 (T) 92.4 mmHg (75.0-100.0); ALLEN'S TEST POSITIVE; FCOHb 0.3 % (0.0-3.9); FMetHb 0.3 % (0.0-1.5); FO2Hb 96.6 % (94-97); PATIENT TEMPERATURE 36.1; PEEP 5 cm H2O; RESPIRATORY RATE 20 b/min; TIDAL VOLUME 600 mL; TOTAL HEMOGLOBIN 9.1 G/dl (14.0-18.0)
[2020-06-15] MEDS: NORepinephrine 8mg/ 250ml NS 250 ML IV SCH (03:40)
[2020-06-15 03:56] LABS: ANISOCYTOSIS 3+; HYPOCHROMASIA 2+; PLATELET ESTIMATE NORMAL; POLYCHROMASIA 2+; SCHISTOCYTES FEW; SPHEROCYTES FEW; TARGET CELLS 1+; TOTAL CELLS COUNTED 100
[2020-06-15] MEDS: amiodarone/D5 360MG/200ML BAG 200 ML IV SCH ×4 (05:39→23:51)
[2020-06-15] MEDS: budesonide 0.5mg/2ml UD nebule IH SCH ×2 (07:03→19:03)
[2020-06-15] MEDS: lactobacillus rhamnosus 10,000 MMU CELLS/CAPSULE GT SCH ×2 (07:38→20:00)
[2020-06-15] MEDS: K and/or MAG REPLACEMENT MC SCH ×2 (07:39→20:00)
[2020-06-15] MEDS: pantoprazole 40 MG vial IV SCH (07:45)
[2020-06-15] MEDS: micafungin inj 100 MG in normal saline 100ml IV soln 100 ML IV SCH (08:57)
[2020-06-15] MEDS ORDERED: vancomycin/NS 1 GM ADD-VANTAGE 250 ML IV ONE (09:15)
[2020-06-15] MEDS: VANCOmycin 1250MG/NS 250ml Bag 250 ML IV SCH (10:14)
[2020-06-15] MEDS: FENTANYL-0.9 % NACL/PF 100 ML IV PRN ×2 (10:25→18:50)
[2020-06-15] MEDS: dexmedetomidine/D5W 100mL 100 ML IV SCH ×2 (10:53→22:34)
--- NOTE | 2020-06-15 13:29 | NUR ---
Reassessment: Patient continues with TPN. Patient may benefit from eventual custom TPN to provide higher protein without increasing volume or overloading dextrose in view of multiple surgeries and CVVH, discussed with Amplifier Mechanic who recommends holding off on custom for now in view of elevated BUN and kidney function. Pt OR yesterday for another ex lpa, repair of esophageal perforation, and wound vac change. Continue TPN with no changes. Recommendations: 1) Recommend continuous 3:1 TPN using Clinimix non-E 03/21 with 100 ml 20% intralipids at goal rate of 100 ml/hr will provide total volume of 2400 ml, 2239 cals, 114 g protein, and 3.85 mg/kg/min CHO loading. 2) Prealbumin and TG q Thursday and 3) Daily weights Addendum: 06/15/20 at [address] Amended: Links added.
--- NOTE | 2020-06-15 13:57 | NUR ---
Procalcitonin and Microbiology result called to Dr. Last. No new orders. Addendum: 06/15/20 at 1425 by Iris Sutton RN Dr. Choudhury also aware of the lab and Micro results.
[2020-06-15] MEDS: [UNRECOGNIZED DRUG - REMARK] IV SCH ×4 (17:28)
--- NOTE | 2020-06-15 18:23 | NUR ---
Problems reprioritized. Patient report given to Junior, questions answered & plan of care reviewed with .
[2020-06-15] MEDS: insulin glargine (Lantus) pen - multi-dose SQ SCH (20:05)
[2020-06-15] MEDS ORDERED: normal saline 1000ml 250 ML IV PRN (20:49)
[2020-06-15] MEDS ORDERED: heparin 1,000unit/ml 10ml vial 10 ML IV ONE (20:49)
[2020-06-15] MEDS ORDERED: epoetin 20,000 units/ml inj IV ONE (20:50)
[2020-06-15] MEDS ORDERED: heparin 1,000 units/ml 10ml inj IV ONE (20:50)
[2020-06-15] MEDS ORDERED: heparin 1,000 units/ml 10ml inj HE ONE (20:55)
[2020-06-16] VITALS (24 sets, daily range): BP systolic 87–154; BP diastolic 41–82
[2020-06-16] MEDS: mineral oil/petrolatum ophthal oint EACHEYE SCH ×4 (02:00→20:50)
[2020-06-16] MEDS: insulin regular, human U-100 3ml vial - multi-dose SQ SCH ×4 (02:36→19:49)
[2020-06-16] MEDS: hydrocortisone sod succ/PF 100mg/2ml inj. IV SCH ×4 (02:40→20:55)
[2020-06-16 03:03] LABS: BASOPHILS % (AUTO) 0.1 % (0-1); LYMPHOCYTES # (AUTO) 0.4 X10'3 (1.1-4.8); RED BLOOD COUNT 3.42 X10'6 (4.70-6.10)
[2020-06-16 03:07] LABS: EOSINOPHILS % (AUTO) 0 % (0-6); HEMOGLOBIN 9.5 g/dl (14.0-17.9); LYMPHOCYTES % (AUTO) 1.6 % (21-51); MEAN CORPUSCULAR HEMOGLOBIN 27.8 PG (27.0-31.0); MEAN CORPUSCULAR HGB CONC 32.7 g/dL (33.0-36.5); MEAN CORPUSCULAR VOLUME 84.9 FL (78-98); MEAN PLATELET VOLUME 10.4 FL (7.4-10.4); MONOCYTES % (AUTO) 4.7 % (2-12); NEUTROPHILS # (AUTO) 20.8 X10'3 (1.8-7.7); NEUTROPHILS % (AUTO) 93.6 % (42-75); PLATELET COUNT 333 X10'3 (140-440); RED CELL DISTRIBUTION WIDTH 29.2 % (11.5-14.5); WHITE BLOOD COUNT 22.3 X10'3 (4.5-11.0)
[2020-06-16 03:19] LABS: ALANINE AMINOTRANSFERASE 175 U/L (12-78); ALBUMIN 2.3 G/DL (3.4-5.0); ALKALINE PHOSPHATASE 264 IU/L (46-116); ANION GAP 12 (8-16); ASPARTATE AMINO TRANSFERASE 84 U/L (10-37); BILIRUBIN,TOTAL 6.1 MG/DL (0.1-1.0); BLOOD UREA NITROGEN 104 MG/DL (7-18); BUN/CREATININE RATIO 35.4 (5.4-32.0); CALCIUM 7.8 MG/DL (8.5-10.1); CHLORIDE 95 MMOL/L (99-107); CREATININE 2.94 MG/DL (0.60-1.10); GLUCOSE 120 MG/DL (70-104); MAGNESIUM 1.7 MG/DL (1.5-2.4); POTASSIUM 4.8 MMOL/L (3.5-5.1); SODIUM 129 MMOL/L (135-145); TOTAL CARBON DIOXIDE 21.7 MMOL/L (24-32); eGFR 21 ML/MIN
[2020-06-16] MEDS: ipratropium/albuterol 3ml nebule NEB SCH ×6 (03:20→23:09)
[2020-06-16 03:24] LABS: ALBUMIN/GLOBULIN RATIO 0.8 (1.1-1.5); PHOSPHORUS 5.1 MG/DL (2.3-4.5); TOTAL PROTEIN 5.1 G/DL (6.4-8.2)
[2020-06-16] MEDS: amiodarone/D5 360MG/200ML BAG 200 ML IV SCH ×3 (05:55→18:03)
[2020-06-16] MEDS: budesonide 0.5mg/2ml UD nebule IH SCH ×2 (07:05→19:08)
[2020-06-16 07:10] LABS: ANISOCYTOSIS 3+; HYPOCHROMASIA 1+; PLATELET ESTIMATE NORMAL; TOTAL CELLS COUNTED 100
[2020-06-16 07:11] LABS: MICROCYTOSIS 1+; POLYCHROMASIA 2+; SCHISTOCYTES FEW; TARGET CELLS 2+
[2020-06-16] MEDS: pantoprazole 40 MG vial IV SCH (07:20)
[2020-06-16] MEDS: MEROPENEM 500MG/50ML-NS IVPB 50 ML IV SCH (07:20)
[2020-06-16] MEDS: methylnaltrexone br 12mg/0.6ml inj***SubQ only SQ SCH (07:21)
[2020-06-16] MEDS: micafungin inj 100 MG in normal saline 100ml IV soln 100 ML IV SCH (07:21)
[2020-06-16] MEDS: K and/or MAG REPLACEMENT MC SCH ×2 (08:00→20:00)
[2020-06-16] MEDS: lactobacillus rhamnosus 10,000 MMU CELLS/CAPSULE GT SCH ×2 (08:00→20:00)
[2020-06-16] MEDS ORDERED: albumin (human) 25% 100ml IV 200 ML IV PRN (09:00)
[2020-06-16] MEDS ORDERED: heparin 1,000 units/ml 10ml inj HE ONE ×3 (09:10→10:15)
[2020-06-16] MEDS: NORepinephrine 8mg/ 250ml NS 250 ML IV SCH (09:51)
[2020-06-16] MEDS ORDERED: normal saline 1000ml 250 ML IV PRN (10:07)
[2020-06-16] MEDS ORDERED: heparin 1,000unit/ml 10ml vial 10 ML IV ONE (10:07)
[2020-06-16] MEDS ORDERED: epoetin 20,000 units/ml inj IV ONE (10:10)
[2020-06-16] MEDS ORDERED: albumin (human) 25% 100ml IV 100 ML IV PRN (10:10)
[2020-06-16] MEDS: VANCOmycin 1250MG/NS 250ml Bag 250 ML IV SCH (10:12)
[2020-06-16] MEDS: dexmedetomidine/D5W 100mL 100 ML IV SCH ×2 (10:15→21:56)
[2020-06-16] MEDS: FENTANYL-0.9 % NACL/PF 100 ML IV PRN (11:23)
[2020-06-16] MEDS: diatr meglu/diatrizoate 30ml oral sol.-(3 dose) bottle PO PRN ×3 (12:20→19:45)
[2020-06-16] MEDS: [UNRECOGNIZED DRUG - REMARK] IV SCH ×3 (13:30)
--- NOTE | 2020-06-16 18:13 | NUR ---
Problems reprioritized. Patient report given, questions answered & plan of care reviewed with PHYLLIS Pacheco.
--- NOTE | 2020-06-16 19:00 | NUR ---
Patient in room CICU 2008. I have received report from Kristie FERGUSON and had the opportunity to ask questions and assume patient care.
[2020-06-16] MEDS: insulin glargine (Lantus) pen - multi-dose SQ SCH (19:50)
[2020-06-17] VITALS (24 sets, daily range): BP systolic 100–156; BP diastolic 46–75
[2020-06-17] MEDS: insulin regular, human U-100 3ml vial - multi-dose SQ SCH ×4 (02:25→20:55)
[2020-06-17] MEDS: hydrocortisone sod succ/PF 100mg/2ml inj. IV SCH ×4 (02:27→20:00)
[2020-06-17] MEDS: mineral oil/petrolatum ophthal oint EACHEYE SCH ×4 (02:37→20:00)
[2020-06-17 02:47] LABS: BASOPHILS % (AUTO) 0.1 % (0-1); EOSINOPHILS % (AUTO) 0 % (0-6); HEMATOCRIT 26.2 % (42.0-52.0); HEMOGLOBIN 8.7 g/dl (14.0-17.9); LYMPHOCYTES # (AUTO) 0.3 X10'3 (1.1-4.8); LYMPHOCYTES % (AUTO) 1.4 % (21-51); MEAN CORPUSCULAR HEMOGLOBIN 27.6 PG (27.0-31.0); MEAN CORPUSCULAR VOLUME 83.7 FL (78-98); MEAN PLATELET VOLUME 9.9 FL (7.4-10.4); MONOCYTES # (AUTO) 1.3 X10'3 (0-0.9); MONOCYTES % (AUTO) 5.8 % (2-12); NEUTROPHILS # (AUTO) 21.2 X10'3 (1.8-7.7); NEUTROPHILS % (AUTO) 92.7 % (42-75); PLATELET COUNT 374 X10'3 (140-440); RED BLOOD COUNT 3.14 X10'6 (4.70-6.10); RED CELL DISTRIBUTION WIDTH 30.5 % (11.5-14.5); WHITE BLOOD COUNT 22.9 X10'3 (4.5-11.0)
[2020-06-17 02:49] LABS: ALANINE AMINOTRANSFERASE 159 U/L (12-78); ALBUMIN 2.4 G/DL (3.4-5.0); ALKALINE PHOSPHATASE 369 IU/L (46-116); ANION GAP 11 (8-16); ASPARTATE AMINO TRANSFERASE 91 U/L (10-37); BILIRUBIN,TOTAL 7.4 MG/DL (0.1-1.0); BLOOD UREA NITROGEN 62 MG/DL (7-18); BUN/CREATININE RATIO 31.8 (5.4-32.0); CALCIUM 7.8 MG/DL (8.5-10.1); CHLORIDE 98 MMOL/L (99-107); CREATININE 1.95 MG/DL (0.60-1.10); GLUCOSE 119 MG/DL (70-104); MAGNESIUM 1.6 MG/DL (1.5-2.4); SODIUM 133 MMOL/L (135-145); TOTAL CARBON DIOXIDE 24.1 MMOL/L (24-32); eGFR 34 ML/MIN
[2020-06-17 02:50] LABS: ALBUMIN/GLOBULIN RATIO 0.9 (1.1-1.5); PHOSPHORUS 2.9 MG/DL (2.3-4.5); POTASSIUM 3.3 MMOL/L (3.5-5.1); TOTAL PROTEIN 5.1 G/DL (6.4-8.2)
[2020-06-17] MEDS: ipratropium/albuterol 3ml nebule NEB SCH ×6 (03:06→23:07)
[2020-06-17] MEDS: amiodarone/D5 360MG/200ML BAG 200 ML IV SCH ×3 (05:14→14:09)
[2020-06-17] MEDS: FENTANYL-0.9 % NACL/PF 100 ML IV PRN ×3 (05:45→23:36)
[2020-06-17] MEDS: budesonide 0.5mg/2ml UD nebule IH SCH ×2 (07:01→19:20)
[2020-06-17 07:55] LABS: TOTAL CELLS COUNTED 100
[2020-06-17 07:59] LABS: ANISOCYTOSIS 3+; BURR CELLS 1+; HYPOCHROMASIA 1+; PLATELET ESTIMATE NORMAL; POLYCHROMASIA 1+; SCHISTOCYTES FEW; TARGET CELLS 3+
[2020-06-17] MEDS: pantoprazole 40 MG vial IV SCH (08:05)
[2020-06-17] MEDS: lactobacillus rhamnosus 10,000 MMU CELLS/CAPSULE GT SCH ×2 (08:05→20:00)
[2020-06-17] MEDS: micafungin inj 100 MG in normal saline 100ml IV soln 100 ML IV SCH (08:06)
[2020-06-17] MEDS: MEROPENEM 500MG/50ML-NS IVPB 50 ML IV SCH (08:06)
[2020-06-17] MEDS: dexmedetomidine/D5W 100mL 100 ML IV SCH ×2 (09:09→21:18)
[2020-06-17] MEDS: [UNRECOGNIZED DRUG - REMARK] IV SCH ×3 (10:35)
--- NOTE | 2020-06-17 11:00 | NUR ---
Dr. Sanchez at bedside, aware of K+ 3.3, new order to d/c electrolyte replacement orders
[2020-06-17] MEDS: VANCOmycin 1250MG/NS 250ml Bag 250 ML IV SCH (11:10)
[2020-06-17] MEDS: NORepinephrine 8mg/ 250ml NS 250 ML IV SCH (16:23)
[2020-06-17] MEDS: insulin glargine (Lantus) pen - multi-dose SQ SCH (20:54)
[2020-06-18] VITALS (23 sets, daily range): BP systolic 86–156; BP diastolic 42–73
[2020-06-18] MEDS: amiodarone/D5 360MG/200ML BAG 200 ML IV SCH ×4 (00:23→16:33)
[2020-06-18] MEDS: mineral oil/petrolatum ophthal oint EACHEYE SCH ×4 (02:00→19:10)
[2020-06-18 02:55] LABS: BASOPHILS # (AUTO) 0.1 X10'3 (0-0.2); BASOPHILS % (AUTO) 0.3 % (0-1); EOSINOPHILS % (AUTO) 0.2 % (0-6); HEMATOCRIT 25.4 % (42.0-52.0); HEMOGLOBIN 8.1 g/dl (14.0-17.9); LYMPHOCYTES # (AUTO) 0.4 X10'3 (1.1-4.8); LYMPHOCYTES % (AUTO) 1.7 % (21-51); MEAN CORPUSCULAR HEMOGLOBIN 26.4 PG (27.0-31.0); MEAN CORPUSCULAR HGB CONC 32.1 g/dL (33.0-36.5); MEAN CORPUSCULAR VOLUME 82.3 FL (78-98); MEAN PLATELET VOLUME 9.5 FL (7.4-10.4); MONOCYTES # (AUTO) 1.1 X10'3 (0-0.9); MONOCYTES % (AUTO) 4.7 % (2-12); NEUTROPHILS % (AUTO) 93.1 % (42-75); PLATELET COUNT 405 X10'3 (140-440); RED BLOOD COUNT 3.09 X10'6 (4.70-6.10); RED CELL DISTRIBUTION WIDTH 30.1 % (11.5-14.5); WHITE BLOOD COUNT 23.6 X10'3 (4.5-11.0)
[2020-06-18] MEDS: ipratropium/albuterol 3ml nebule NEB SCH ×6 (03:00→23:00)
[2020-06-18 03:07] LABS: ALANINE AMINOTRANSFERASE 159 U/L (12-78); ALBUMIN 2.1 G/DL (3.4-5.0); ALBUMIN/GLOBULIN RATIO 0.8 (1.1-1.5); ALKALINE PHOSPHATASE 434 IU/L (46-116); ANION GAP 14 (8-16); ASPARTATE AMINO TRANSFERASE 78 U/L (10-37); BILIRUBIN,TOTAL 6.5 MG/DL (0.1-1.0); BLOOD UREA NITROGEN 96 MG/DL (7-18); BUN/CREATININE RATIO 35.4 (5.4-32.0); CALCIUM 7.7 MG/DL (8.5-10.1); CHLORIDE 93 MMOL/L (99-107); CREATININE 2.71 MG/DL (0.60-1.10); GLUCOSE 182 MG/DL (70-104); MAGNESIUM 1.6 MG/DL (1.5-2.4); PHOSPHORUS 3.5 MG/DL (2.3-4.5); POTASSIUM 3.5 MMOL/L (3.5-5.1); SODIUM 127 MMOL/L (135-145); TOTAL CARBON DIOXIDE 20.1 MMOL/L (24-32); TOTAL PROTEIN 4.9 G/DL (6.4-8.2); eGFR 23 ML/MIN
[2020-06-18] MEDS: hydrocortisone sod succ/PF 100mg/2ml inj. IV SCH ×3 (03:29→19:08)
[2020-06-18] MEDS: insulin regular, human U-100 3ml vial - multi-dose SQ SCH ×4 (03:40→20:05)
[2020-06-18 04:35] LABS: ABG BASE EXCESS -6.2 mmol/L (-2.0-2.0); ABG HCO3 17.2 mmol/L (22.0-26.0); ABG OXYGEN SATURATION 97.7 % (94-97); ABG PO2 (T) 100.3 mmHg (75.0-100.0); ALLEN'S TEST POSITIVE; FCOHb 0.5 % (0.0-3.9); FMetHb 0.3 % (0.0-1.5); FO2Hb 96.9 % (94-97); PATIENT TEMPERATURE 36.4; PEEP 5 cm H2O; RESPIRATORY RATE 20 b/min; TIDAL VOLUME 600 mL; TOTAL HEMOGLOBIN 8.9 G/dl (14.0-18.0)
[2020-06-18] MEDS: [UNRECOGNIZED DRUG - REMARK] IV SCH ×3 (05:18)
[2020-06-18] MEDS: budesonide 0.5mg/2ml UD nebule IH SCH ×2 (07:17→19:06)
[2020-06-18] MEDS: methylnaltrexone br 12mg/0.6ml inj***SubQ only SQ SCH (08:01)
[2020-06-18] MEDS: pantoprazole 40 MG vial IV SCH (08:01)
[2020-06-18] MEDS: lactobacillus rhamnosus 10,000 MMU CELLS/CAPSULE GT SCH ×2 (08:01→19:08)
[2020-06-18 08:22] LABS: ANISOCYTOSIS 3+; PLATELET ESTIMATE NORMAL; TOTAL CELLS COUNTED 100
[2020-06-18 08:23] LABS: POLYCHROMASIA 1+; TARGET CELLS 1+
[2020-06-18 08:24] LABS: HYPOCHROMASIA 2+
[2020-06-18] MEDS: micafungin inj 100 MG in normal saline 100ml IV soln 100 ML IV SCH (08:29)
[2020-06-18] MEDS: MEROPENEM 500MG/50ML-NS IVPB 50 ML IV SCH (08:29)
[2020-06-18] MEDS: dexmedetomidine/D5W 100mL 100 ML IV SCH (08:59)
[2020-06-18] MEDS: FENTANYL-0.9 % NACL/PF 100 ML IV PRN ×2 (09:11→16:39)
[2020-06-18] MEDS ORDERED: VANCOMYCIN LEVEL IV ONE (09:30)
[2020-06-18] MEDS: NORepinephrine 8mg/ 250ml NS 250 ML IV SCH (12:22)
[2020-06-18] MEDS: vancomycin/NS 1 GM ADD-VANTAGE 250 ML IV SCH (13:39)
[2020-06-18] MEDS: midazolam 100mg in NS 100ml 100 ML IV PRN (13:40)
--- NOTE | 2020-06-18 14:18 | NUR ---
F/u (06/18): Pt tolerating TPN at goal; to return to OR today for esophageal repair given prior damage per development advisor at rounds today. On HD for DENNIS making little urine per MD. No significant BM yet this admit w/ multiple GI surgeries and washouts. Will continue to monitor. Recommendations: 1) Recommend continuous 3:1 TPN using Clinimix non-E 03/21 with 100 ml 20% intralipids at goal rate of 100 ml/hr will provide total volume of 2400 ml, 2239 cals, 114 g protein, and 3.85 mg/kg/min CHO loading. 2) Prealbumin and TG q Thursday and ; daily wts 3) Consider custom PN once BUN improves and MD agreeable given significant wound healing needs post-op Addendum: 06/18/20 at [address] Amended: Links added.
[2020-06-18] MEDS ORDERED: clindamycin phosphate 150mg/ml inj. ONE (15:53)
[2020-06-18] MEDS ORDERED: gentamicin 40 MG/1 ML inj ONE (15:53)
[2020-06-18] MEDS: insulin glargine (Lantus) pen - multi-dose SQ SCH (20:07)
[2020-06-18] MEDS ORDERED: rocuronium 10mg/ml inj IV ONE (22:34)
[2020-06-18] MEDS ORDERED: sevoflurane 250ml liquid IH ONE (22:34)
[2020-06-18] MEDS ORDERED: amiodarone in dextrose, iso-osm 150mg/100ml bag IV ONE (22:34)
[2020-06-18] MEDS ORDERED: NORepinephrine 8 MG in NS 250 ML BAG (32 mcg/ml) IV ONE (22:34)
--- NOTE | 2020-06-18 22:42 | NUR ---
Pt off to OR with 2 nurses and Anesthesia. VSS. patient in critical but currently stable condition at this time
[2020-06-19] VITALS (20 sets, daily range): BP systolic 90–121; BP diastolic 35–61
[2020-06-19] MEDS: mineral oil/petrolatum ophthal oint EACHEYE SCH ×4 (02:00→22:09)
[2020-06-19] MEDS ORDERED: albumin (Human) 5% 250ml 250 ML IV ONE (02:10)
[2020-06-19] MEDS: insulin regular, human U-100 3ml vial - multi-dose SQ SCH ×4 (02:26→22:21)
[2020-06-19 02:30] LABS: BASOPHILS % (AUTO) 0.1 % (0-1); EOSINOPHILS % (AUTO) 0.1 % (0-6); HEMATOCRIT 26.3 % (42.0-52.0); HEMOGLOBIN 8.6 g/dl (14.0-17.9); LYMPHOCYTES # (AUTO) 0.4 X10'3 (1.1-4.8); LYMPHOCYTES % (AUTO) 1.3 % (21-51); MEAN CORPUSCULAR HEMOGLOBIN 27.1 PG (27.0-31.0); MEAN CORPUSCULAR HGB CONC 32.8 g/dL (33.0-36.5); MEAN CORPUSCULAR VOLUME 82.6 FL (78-98); MEAN PLATELET VOLUME 9.2 FL (7.4-10.4); MONOCYTES # (AUTO) 1.5 X10'3 (0-0.9); NEUTROPHILS # (AUTO) 27.7 X10'3 (1.8-7.7); NEUTROPHILS % (AUTO) 93.5 % (42-75); PLATELET COUNT 502 X10'3 (140-440); RED BLOOD COUNT 3.19 X10'6 (4.70-6.10); RED CELL DISTRIBUTION WIDTH 31.1 % (11.5-14.5)
[2020-06-19 02:33] LABS: PARTIAL THROMBOPLASTIN TIME 38 SECONDS (22-32)
[2020-06-19 02:41] LABS: WHITE BLOOD COUNT 29.6 X10'3 (4.5-11.0)
[2020-06-19 02:45] LABS: ALANINE AMINOTRANSFERASE 186 U/L (12-78); ALBUMIN 2.2 G/DL (3.4-5.0); ALKALINE PHOSPHATASE 400 IU/L (46-116); ANION GAP 13 (8-16); ASPARTATE AMINO TRANSFERASE 127 U/L (10-37); BILIRUBIN,TOTAL 6.5 MG/DL (0.1-1.0); BLOOD UREA NITROGEN 123 MG/DL (7-18); BUN/CREATININE RATIO 41.6 (5.4-32.0); CALCIUM 7.4 MG/DL (8.5-10.1); CHLORIDE 91 MMOL/L (99-107); CREATININE 2.96 MG/DL (0.60-1.10); GLUCOSE 183 MG/DL (70-104); MAGNESIUM 1.6 MG/DL (1.5-2.4); POTASSIUM 4.3 MMOL/L (3.5-5.1); SODIUM 123 MMOL/L (135-145); TOTAL CARBON DIOXIDE 18.8 MMOL/L (24-32); eGFR 21 ML/MIN
[2020-06-19 02:47] LABS: ALBUMIN/GLOBULIN RATIO 0.7 (1.1-1.5); PHOSPHORUS 5.8 MG/DL (2.3-4.5); TOTAL PROTEIN 5.2 G/DL (6.4-8.2)
[2020-06-19] MEDS: ipratropium/albuterol 3ml nebule NEB SCH ×6 (03:01→23:12)
[2020-06-19 03:20] LABS: ABG BASE EXCESS -10.4 mmol/L (-2.0-2.0); ABG HCO3 15.4 mmol/L (22.0-26.0); ABG OXYGEN SATURATION 86.5 % (94-97); ABG PCO2 (T) 32.7 mmHg (35.0-48.0); ABG PO2 (T) 53.8 mmHg (75.0-100.0); FCOHb 0.5 % (0.0-3.9); FMetHb 0.1 % (0.0-1.5); PATIENT TEMPERATURE 36.1; PEEP 5 cm H2O; RESPIRATORY RATE 18 b/min; TIDAL VOLUME 600 mL; TOTAL HEMOGLOBIN 9.2 G/dl (14.0-18.0)
[2020-06-19] MEDS: FENTANYL-0.9 % NACL/PF 100 ML IV PRN ×3 (04:01→22:10)
[2020-06-19] MEDS: [UNRECOGNIZED DRUG - REMARK] IV SCH ×3 (05:25)
[2020-06-19] MEDS: amiodarone/D5 360MG/200ML BAG 200 ML IV SCH ×5 (05:25→18:51)
[2020-06-19 06:40] LABS: NUCLEATED RED BLOOD CELLS 2 /100WBC (0-0); TOTAL CELLS COUNTED 100
[2020-06-19 06:41] LABS: ANISOCYTOSIS 3+; HYPOCHROMASIA 2+; PLATELET ESTIMATE INCREASED; POLYCHROMASIA 1+; TARGET CELLS 2+
[2020-06-19 06:49] LABS: BURR CELLS FEW
[2020-06-19] MEDS: budesonide 0.5mg/2ml UD nebule IH SCH ×2 (07:10→19:04)
[2020-06-19] MEDS: hydrocortisone sod succ/PF 100mg/2ml inj. IV SCH ×2 (07:29→22:15)
[2020-06-19] MEDS: micafungin inj 100 MG in normal saline 100ml IV soln 100 ML IV SCH (07:29)
[2020-06-19] MEDS: pantoprazole 40 MG vial IV SCH (07:29)
[2020-06-19] MEDS: MEROPENEM 500MG/50ML-NS IVPB 50 ML IV SCH (07:30)
[2020-06-19] MEDS: lactobacillus rhamnosus 10,000 MMU CELLS/CAPSULE GT SCH ×2 (07:30→20:00)
[2020-06-19] MEDS ORDERED: epoetin 20,000 units/ml inj IV ONE (08:00)
[2020-06-19] MEDS ORDERED: heparin 1,000unit/ml 10ml vial 10 ML IV ONE (08:00)
[2020-06-19] MEDS ORDERED: heparin 1,000 units/ml 10ml inj HE ONE ×2 (08:00)
[2020-06-19] MEDS ORDERED: normal saline 1000ml 250 ML IV PRN (08:00)
[2020-06-19] MEDS: vancomycin/NS 1 GM ADD-VANTAGE 250 ML IV SCH (15:17)
--- NOTE | 2020-06-19 18:30 | NUR ---
Patient in room CICU 2007. I have received report from Yaneli FERGUSON and had the opportunity to ask questions and assume patient care. Pt being taken to OR, x2 RNs and Anesthesia.
[2020-06-19] MEDS ORDERED: sevoflurane 250ml liquid IH ONE (18:40)
[2020-06-19] MEDS ORDERED: NORepinephrine 8 MG in NS 250 ML BAG (32 mcg/ml) IV ONE (18:40)
[2020-06-19] MEDS ORDERED: amiodarone in dextrose, iso-osm 360mg/200ml bag IV ONE (18:40)
--- NOTE | 2020-06-19 21:00 | NUR ---
Pt back from OR. Chest tubes and ABD drains to low wall suction. Levophed was increased in OR to 0.15mcg/min/kg from .05mcg/kg/min. Will titrate down as able.
[2020-06-19 21:35] LABS: ABG BASE EXCESS -14.2 mmol/L (-2.0-2.0); ABG HCO3 14.7 mmol/L (22.0-26.0); ABG OXYGEN SATURATION 98.5 % (94-97); ABG PCO2 (T) 46.8 mmHg (35.0-48.0); ABG PO2 (T) 155.2 mmHg (75.0-100.0); FCOHb 0.3 % (0.0-3.9); FMetHb 0.4 % (0.0-1.5); FO2Hb 97.8 % (94-97); PATIENT TEMPERATURE 36.7; PEEP 5 cm H2O; RESPIRATORY RATE 18 b/min; TIDAL VOLUME 600 mL; TOTAL HEMOGLOBIN 9.8 G/dl (14.0-18.0)
[2020-06-19] MEDS: midazolam 100mg in NS 100ml 100 ML IV PRN (22:10)
[2020-06-19 22:14] LABS: BASOPHILS # (AUTO) 0.3 X10'3 (0-0.2); EOSINOPHILS # (AUTO) 0.1 X10'3 (0-0.9); EOSINOPHILS % (AUTO) 0.2 % (0-6); HEMATOCRIT 26.8 % (42.0-52.0); HEMOGLOBIN 8.9 g/dl (14.0-17.9); LYMPHOCYTES # (AUTO) 0.5 X10'3 (1.1-4.8); LYMPHOCYTES % (AUTO) 1.9 % (21-51); MEAN CORPUSCULAR HEMOGLOBIN 27.6 PG (27.0-31.0); MEAN CORPUSCULAR HGB CONC 33.3 g/dL (33.0-36.5); MEAN CORPUSCULAR VOLUME 82.8 FL (78-98); MEAN PLATELET VOLUME 9.2 FL (7.4-10.4); MONOCYTES # (AUTO) 0.6 X10'3 (0-0.9); MONOCYTES % (AUTO) 2.3 % (2-12); NEUTROPHILS # (AUTO) 23.6 X10'3 (1.8-7.7); NEUTROPHILS % (AUTO) 94.6 % (42-75); PLATELET COUNT 503 X10'3 (140-440); RED BLOOD COUNT 3.24 X10'6 (4.70-6.10); RED CELL DISTRIBUTION WIDTH 31.8 % (11.5-14.5)
[2020-06-19 22:20] LABS: ALANINE AMINOTRANSFERASE 192 U/L (12-78); ALBUMIN 2.2 G/DL (3.4-5.0); ALKALINE PHOSPHATASE 371 IU/L (46-116); ANION GAP 18 (8-16); ASPARTATE AMINO TRANSFERASE 101 U/L (10-37); BILIRUBIN,TOTAL 6.9 MG/DL (0.1-1.0); BLOOD UREA NITROGEN 136 MG/DL (7-18); BUN/CREATININE RATIO 41.8 (5.4-32.0); CALCIUM 7.5 MG/DL (8.5-10.1); CHLORIDE 89 MMOL/L (99-107); CREATININE 3.25 MG/DL (0.60-1.10); GLUCOSE 123 MG/DL (70-104); MAGNESIUM 1.6 MG/DL (1.5-2.4); SODIUM 122 MMOL/L (135-145); TOTAL CARBON DIOXIDE 15.3 MMOL/L (24-32); eGFR 19 ML/MIN
[2020-06-19] MEDS: insulin glargine (Lantus) pen - multi-dose SQ SCH (22:20)
[2020-06-19 22:28] LABS: PHOSPHORUS 6.5 MG/DL (2.3-4.5); POTASSIUM 4.5 MMOL/L (3.5-5.1); TOTAL PROTEIN 5.3 G/DL (6.4-8.2)
[2020-06-19 22:29] LABS: ALBUMIN/GLOBULIN RATIO 0.7 (1.1-1.5)
[2020-06-20] VITALS (24 sets, daily range): BP systolic 78–123; BP diastolic 37–61
[2020-06-20] MEDS: amiodarone/D5 360MG/200ML BAG 200 ML IV SCH ×4 (02:15→19:06)
[2020-06-20] MEDS: [UNRECOGNIZED DRUG - REMARK] IV SCH ×3 (02:15)
[2020-06-20] MEDS: mineral oil/petrolatum ophthal oint EACHEYE SCH ×4 (02:16→19:51)
[2020-06-20] MEDS: insulin regular, human U-100 3ml vial - multi-dose SQ SCH ×4 (02:26→19:56)
[2020-06-20] MEDS: ipratropium/albuterol 3ml nebule NEB SCH ×6 (02:43→23:14)
[2020-06-20 03:01] LABS: ABG BASE EXCESS -16.3 mmol/L (-2.0-2.0); ABG HCO3 11.8 mmol/L (22.0-26.0); ABG OXYGEN SATURATION 95.4 % (94-97); ABG PCO2 (T) 35.6 mmHg (35.0-48.0); ABG PO2 (T) 91.2 mmHg (75.0-100.0); FCOHb 0.3 % (0.0-3.9); FMetHb 0.3 % (0.0-1.5); FO2Hb 94.8 % (94-97); PATIENT TEMPERATURE 36.5; PEEP 5 cm H2O; RESPIRATORY RATE 22 b/min; TIDAL VOLUME 600 mL; TOTAL HEMOGLOBIN 9.6 G/dl (14.0-18.0)
[2020-06-20 03:25] LABS: BASOPHILS # (AUTO) 0.2 X10'3 (0-0.2); BASOPHILS % (AUTO) 0.7 % (0-1); EOSINOPHILS % (AUTO) 0.1 % (0-6); HEMATOCRIT 26.3 % (42.0-52.0); HEMOGLOBIN 8.7 g/dl (14.0-17.9); LYMPHOCYTES # (AUTO) 0.4 X10'3 (1.1-4.8); LYMPHOCYTES % (AUTO) 1.3 % (21-51); MEAN CORPUSCULAR HEMOGLOBIN 27.5 PG (27.0-31.0); MEAN CORPUSCULAR HGB CONC 33.2 g/dL (33.0-36.5); MEAN CORPUSCULAR VOLUME 82.8 FL (78-98); MEAN PLATELET VOLUME 9.3 FL (7.4-10.4); MONOCYTES % (AUTO) 3.7 % (2-12); NEUTROPHILS # (AUTO) 26.3 X10'3 (1.8-7.7); NEUTROPHILS % (AUTO) 94.2 % (42-75); PLATELET COUNT 447 X10'3 (140-440); RED BLOOD COUNT 3.18 X10'6 (4.70-6.10); RED CELL DISTRIBUTION WIDTH 32.1 % (11.5-14.5)
[2020-06-20 03:28] LABS: WHITE BLOOD COUNT 27.9 X10'3 (4.5-11.0)
[2020-06-20 03:44] LABS: ALANINE AMINOTRANSFERASE 182 U/L (12-78); ALBUMIN 2.1 G/DL (3.4-5.0); ALKALINE PHOSPHATASE 356 IU/L (46-116); ANION GAP 18 (8-16); ASPARTATE AMINO TRANSFERASE 88 U/L (10-37); BILIRUBIN,TOTAL 6.8 MG/DL (0.1-1.0); BLOOD UREA NITROGEN 141 MG/DL (7-18); BUN/CREATININE RATIO 41.8 (5.4-32.0); CALCIUM 7.4 MG/DL (8.5-10.1); CHLORIDE 89 MMOL/L (99-107); CREATININE 3.37 MG/DL (0.60-1.10); GLUCOSE 133 MG/DL (70-104); MAGNESIUM 1.5 MG/DL (1.5-2.4); SODIUM 121 MMOL/L (135-145); eGFR 18 ML/MIN
[2020-06-20 03:48] LABS: PHOSPHORUS 6.3 MG/DL (2.3-4.5); POTASSIUM 4.6 MMOL/L (3.5-5.1); TOTAL PROTEIN 5.5 G/DL (6.4-8.2)
[2020-06-20 03:49] LABS: ALBUMIN/GLOBULIN RATIO 0.6 (1.1-1.5); TOTAL CARBON DIOXIDE 13.9 MMOL/L (24-32)
[2020-06-20] MEDS ORDERED: sodium bicarbonate (8.4%) 1 mEq/ml syringe IV ONE (04:00)
[2020-06-20 04:12] LABS: ANISOCYTOSIS 3+; PLATELET ESTIMATE INCREASED; TOTAL CELLS COUNTED 100
--- NOTE | 2020-06-20 06:15 | NUR ---
Patient in room CICU 2007. I have received report from rn and had the opportunity to ask questions and assume patient care.
[2020-06-20] MEDS: budesonide 0.5mg/2ml UD nebule IH SCH ×2 (07:31→19:11)
[2020-06-20] MEDS: FENTANYL-0.9 % NACL/PF 100 ML IV PRN ×2 (07:51→15:26)
[2020-06-20] MEDS: lactobacillus rhamnosus 10,000 MMU CELLS/CAPSULE GT SCH ×2 (07:53→19:51)
[2020-06-20] MEDS: MEROPENEM 500MG/50ML-NS IVPB 50 ML IV SCH (07:54)
[2020-06-20] MEDS: methylnaltrexone br 12mg/0.6ml inj***SubQ only SQ SCH (07:57)
[2020-06-20] MEDS: micafungin inj 100 MG in normal saline 100ml IV soln 100 ML IV SCH (07:57)
[2020-06-20] MEDS: pantoprazole 40 MG vial IV SCH (07:57)
[2020-06-20] MEDS: hydrocortisone sod succ/PF 100mg/2ml inj. IV SCH ×2 (07:57→19:51)
[2020-06-20] MEDS ORDERED: heparin 1,000unit/ml 10ml vial 10 ML IV ONE (08:00)
[2020-06-20] MEDS ORDERED: epoetin 20,000 units/ml inj IV ONE (08:00)
[2020-06-20] MEDS ORDERED: normal saline 1000ml 250 ML IV PRN (08:00)
[2020-06-20] MEDS ORDERED: heparin 1,000 units/ml 10ml inj HE ONE ×2 (08:00)
[2020-06-20] MEDS: NORepinephrine 8mg/ 250ml NS 250 ML IV SCH ×2 (08:13→20:06)
[2020-06-20 12:01] LABS: ABG BASE EXCESS -4.8 mmol/L (-2.0-2.0); ABG HCO3 20.5 mmol/L (22.0-26.0); ABG OXYGEN SATURATION 93.2 % (94-97); ABG PCO2 (T) 38.7 mmHg (35.0-48.0); FCOHb 0.2 % (0.0-3.9); FMetHb 0.1 % (0.0-1.5); FO2Hb 92.9 % (94-97); PATIENT TEMPERATURE 36.9; PEEP 5 cm H2O; RESPIRATORY RATE 22 b/min; TIDAL VOLUME 600 mL; TOTAL HEMOGLOBIN 9.5 G/dl (14.0-18.0)
--- NOTE | 2020-06-20 12:06 | NUR ---
Reassessment: MD requested pt transition to custom TPN at critical care rounds. Recommendations below were d/w clinical pharmacist. Pt s/p GJ tube placement. Pt continues with dialysis at this time, possibly to start CVVH if acidosis and azotemia do not improve per MD notes. LB 06/20. Will continue to follow closely and make recommendations as appropriate. Recommendations: 1) Continuous custom TPN to provide: 170 g 10% AA, 385 g D70 (2.73 mg/kg/min), 30 g 20% intralipids, and 2289 total kcal with goal rate no higher than 100 mL/hr 2) Prealbumin and TG q Thursday and 3) Daily weights 4) Routine opioid antagonist per MD Addendum: 06/20/20 at [address] Amended: Links added.
--- NOTE | 2020-06-20 12:28 | NUR ---
Pt has a cuff leak when he initiates a deep breath with volumes in the 800's. High cuff pressures are being required however the leak persists. Pt is still getting adequate tidal volumes but he is dyssynchronous with the vent. RN aware and stated she would adjust sedation accordingly. Attempted to prop trach up on a rolled up pillow to see if the leak would be minimized but it was not successful. Pt's trach is still stitched in so we are unable to adjust it. Pt vitals stable Addendum: 06/20/20 at 1232 by Pily Carranza RT Amended: Links added.
[2020-06-20] MEDS: vancomycin/NS 1 GM ADD-VANTAGE 250 ML IV SCH (13:46)
[2020-06-20] MEDS ORDERED: rocuronium 10mg/ml inj IV ONE ×2 (15:20→16:25)
[2020-06-20] MEDS: midazolam 100mg in NS 100ml 100 ML IV PRN (15:25)
[2020-06-20 17:35] LABS: ALBUMIN 1.9 G/DL (3.4-5.0); ANION GAP 11 (8-16); BLOOD UREA NITROGEN 83 MG/DL (7-18); BUN/CREATININE RATIO 38.2 (5.4-32.0); CALCIUM 7.3 MG/DL (8.5-10.1); CHLORIDE 95 MMOL/L (99-107); CREATININE 2.17 MG/DL (0.60-1.10); GLUCOSE 70 MG/DL (70-104); MAGNESIUM 1.4 MG/DL (1.5-2.4); SODIUM 129 MMOL/L (135-145); TOTAL CARBON DIOXIDE 22.8 MMOL/L (24-32); eGFR 30 ML/MIN
[2020-06-20 17:39] LABS: PHOSPHORUS 3.4 MG/DL (2.3-4.5); POTASSIUM 3.7 MMOL/L (3.5-5.1)
--- NOTE | 2020-06-20 18:15 | NUR ---
Problems reprioritized. Patient report given, questions answered & plan of care reviewed with RN.
--- NOTE | 2020-06-20 18:30 | NUR ---
Patient in room CICU 2008. I have received report from Olga FERGUSON and had the opportunity to ask questions and assume patient care.
[2020-06-20] MEDS: insulin glargine (Lantus) pen - multi-dose SQ SCH (19:57)
[2020-06-20] MEDS ORDERED: CALCIUM GLUCONATE IV SCH ×9 (21:00)
[2020-06-20] MEDS ORDERED: [UNRECOGNIZED DRUG - OTHER] IV SCH ×9 (21:00)
[2020-06-20] MEDS ORDERED: TOTAL PARENTERAL NUTRITION IV SCH ×9 (21:00)
--- NOTE | 2020-06-20 22:04 | NUR ---
Pt 2000 BG was 59, pt receiving TPN at 100ml/hr, reduced level from 5 to 3 and treated carbs per protocol. Recheck BG at 2200 is 79. No action taken.
[2020-06-21] VITALS (23 sets, daily range): BP systolic 98–127; BP diastolic 14–60
[2020-06-21] MEDS: FENTANYL-0.9 % NACL/PF 100 ML IV PRN (01:00)
[2020-06-21] MEDS: amiodarone/D5 360MG/200ML BAG 200 ML IV SCH ×3 (01:11→17:36)
[2020-06-21] MEDS: mineral oil/petrolatum ophthal oint EACHEYE SCH ×4 (01:53→20:35)
[2020-06-21] MEDS: insulin regular, human U-100 3ml vial - multi-dose SQ SCH (01:59)
[2020-06-21] MEDS: ipratropium/albuterol 3ml nebule NEB SCH ×6 (03:04→23:18)
[2020-06-21 03:16] LABS: ABG HCO3 18.6 mmol/L (22.0-26.0); ABG PCO2 (T) 37.6 mmHg (35.0-48.0); ABG PO2 (T) 79.2 mmHg (75.0-100.0); FCOHb 0.4 % (0.0-3.9); FMetHb 0.1 % (0.0-1.5); FO2Hb 94.5 % (94-97); PATIENT TEMPERATURE 36.8; PEEP 5 cm H2O; RESPIRATORY RATE 22 b/min; TIDAL VOLUME 600 mL; TOTAL HEMOGLOBIN 8.8 G/dl (14.0-18.0)
[2020-06-21 03:27] LABS: BASOPHILS # (AUTO) 0.2 X10'3 (0-0.2); BASOPHILS % (AUTO) 0.6 % (0-1); EOSINOPHILS % (AUTO) 0.1 % (0-6); HEMATOCRIT 23.7 % (42.0-52.0); HEMOGLOBIN 7.9 g/dl (14.0-17.9); LYMPHOCYTES # (AUTO) 0.4 X10'3 (1.1-4.8); LYMPHOCYTES % (AUTO) 1.4 % (21-51); MEAN CORPUSCULAR HEMOGLOBIN 27.2 PG (27.0-31.0); MEAN CORPUSCULAR HGB CONC 33.5 g/dL (33.0-36.5); MEAN CORPUSCULAR VOLUME 81.2 FL (78-98); MEAN PLATELET VOLUME 9.1 FL (7.4-10.4); MONOCYTES # (AUTO) 1.2 X10'3 (0-0.9); MONOCYTES % (AUTO) 4.5 % (2-12); NEUTROPHILS # (AUTO) 25.6 X10'3 (1.8-7.7); NEUTROPHILS % (AUTO) 93.4 % (42-75); PLATELET COUNT 384 X10'3 (140-440); RED BLOOD COUNT 2.92 X10'6 (4.70-6.10); RED CELL DISTRIBUTION WIDTH 33.6 % (11.5-14.5)
[2020-06-21 03:36] LABS: ALANINE AMINOTRANSFERASE 136 U/L (12-78); ALBUMIN 1.7 G/DL (3.4-5.0); ALKALINE PHOSPHATASE 320 IU/L (46-116); ANION GAP 11 (8-16); ASPARTATE AMINO TRANSFERASE 68 U/L (10-37); BILIRUBIN,TOTAL 6.8 MG/DL (0.1-1.0); BLOOD UREA NITROGEN 96 MG/DL (7-18); BUN/CREATININE RATIO 39.5 (5.4-32.0); CALCIUM 7.3 MG/DL (8.5-10.1); CHLORIDE 94 MMOL/L (99-107); CREATININE 2.43 MG/DL (0.60-1.10); GLUCOSE 89 MG/DL (70-104); MAGNESIUM 1.6 MG/DL (1.5-2.4); SODIUM 126 MMOL/L (135-145); TOTAL CARBON DIOXIDE 21.1 MMOL/L (24-32); WHITE BLOOD COUNT 27.4 X10'3 (4.5-11.0); eGFR 27 ML/MIN
[2020-06-21 03:40] LABS: ALBUMIN/GLOBULIN RATIO 0.6 (1.1-1.5); PHOSPHORUS 3.8 MG/DL (2.3-4.5); TOTAL PROTEIN 4.5 G/DL (6.4-8.2)
[2020-06-21 04:02] LABS: NUCLEATED RED BLOOD CELLS 1 /100WBC (0-0); TOTAL CELLS COUNTED 100
[2020-06-21 04:03] LABS: ANISOCYTOSIS 3+; PLATELET ESTIMATE NORMAL; TARGET CELLS FEW
[2020-06-21] MEDS: NORepinephrine 8mg/ 250ml NS 250 ML IV SCH ×2 (05:30→13:20)
--- NOTE | 2020-06-21 06:30 | NUR ---
Problems reprioritized. Patient report given, questions answered & plan of care reviewed with Corie FERGUSON.
--- NOTE | 2020-06-21 06:36 | NUR ---
Patient in room CICU 2008. I have received report from Chaparrita FERGUSON and had the opportunity to ask questions and assume patient care.
[2020-06-21] MEDS: budesonide 0.5mg/2ml UD nebule IH SCH ×2 (07:14→19:20)
[2020-06-21] MEDS: MEROPENEM 500MG/50ML-NS IVPB 50 ML IV SCH (07:49)
[2020-06-21] MEDS: pantoprazole 40 MG vial IV SCH (07:52)
[2020-06-21] MEDS: hydrocortisone sod succ/PF 100mg/2ml inj. IV SCH ×2 (07:52→20:35)
[2020-06-21] MEDS: lactobacillus rhamnosus 10,000 MMU CELLS/CAPSULE GT SCH ×2 (08:10→20:35)
[2020-06-21] MEDS: micafungin inj 150 MG in normal saline 100ml IV soln 100 ML IV SCH (08:38)
--- NOTE | 2020-06-21 09:33 | NUR ---
Tube feeding consult: OK with surgeon to start trickle feeds into jejunum. Recommend vital high protein at 30 ml/hr. Reassessment: MD requested pt transition to custom TPN at critical care rounds. Recommendations below were d/w clinical pharmacist. Pt s/p GJ tube placement. Pt continues with dialysis at this time, possibly to start CVVH if acidosis and azotemia do not improve per MD notes. [facility] 06/20. Will continue to follow closely and make recommendations as appropriate. Recommendations: 1) Continuous custom TPN to provide: 170 g 10% AA, 385 g D70 (2.73 mg/kg/min), 30 g 20% intralipids, and 2289 total kcal with goal rate no higher than 100 mL/hr 2) Prealbumin and TG q Thursday and 3) Daily weights 4) Routine opioid antagonist per MD 5) Trickle tube feedings using vital high protein at 30 ml/hr Addendum: 06/21/20 at [address] Amended: Links added.
[2020-06-21] MEDS ORDERED: NORMAL SALINE IV SCH (10:00)
[2020-06-21] MEDS ORDERED: MORPHINE SULFATE IV SCH (10:00)
[2020-06-21] MEDS ORDERED: morphine/PF injection 8 MG in normal saline 100ml IV soln 92 ML IV SCH (10:26)
[2020-06-21 10:40] LABS: PREALBUMIN 26.1 MG/DL (19-36)
[2020-06-21] MEDS ORDERED: morphine/NS 100mg/100ml bag 100 ML IV SCH (11:05)
[2020-06-21] MEDS ORDERED: morphine 4 MG/ML inj SYRINge IV ONE (11:05)
[2020-06-21] MEDS ORDERED: VECuronium br 10mg inj. IV ONE (11:35)
[2020-06-21] MEDS: linezolid 600mg/300ml PREMIX 300 ML IV SCH ×2 (11:58→20:35)
[2020-06-21] MEDS: morphine/NS 100mg/100ml bag 100 ML IV SCH (12:34)
[2020-06-21] MEDS ORDERED: MIDAZolam 5mg/ml 2ml vial IV ONE (12:55)
[2020-06-21] MEDS ORDERED: rocuronium 10mg/ml inj IV ONE (12:55)
[2020-06-21] MEDS ORDERED: VANCOMYCIN LEVEL IV ONE (13:30)
[2020-06-21] MEDS: midazolam 100mg in NS 100ml 100 ML IV PRN (14:06)
[2020-06-21 14:12] LABS: TRIGLYCERIDES 115 MG/DL (20-135)
--- NOTE | 2020-06-21 18:20 | NUR ---
Patient in room CICU 2007. I have received report from Corie FERGUSON and had the opportunity to ask questions and assume patient care.
--- NOTE | 2020-06-21 18:27 | NUR ---
Problems reprioritized. Patient report given, questions answered & plan of care reviewed with Kaylan FERGUSON.
[2020-06-21] MEDS: insulin glargine (Lantus) pen - multi-dose SQ SCH (21:00)
[2020-06-22] VITALS (24 sets, daily range): BP systolic 85–126; BP diastolic 41–59
[2020-06-22] MEDS: insulin regular, human U-100 3ml vial - multi-dose SQ SCH ×4 (02:16→20:48)
[2020-06-22] MEDS: CALCIUM GLUCONATE IV SCH ×8 (02:18)
[2020-06-22] MEDS: mineral oil/petrolatum ophthal oint EACHEYE SCH ×4 (02:18→20:01)
[2020-06-22] MEDS: [UNRECOGNIZED DRUG - OTHER] IV SCH ×8 (02:18)
[2020-06-22] MEDS: MAGNESIUM SULF IV SCH ×8 (02:18)
[2020-06-22 02:26] LABS: BASOPHILS % (AUTO) 0.2 % (0-1); EOSINOPHILS % (AUTO) 0 % (0-6); HEMATOCRIT 22.4 % (42.0-52.0); HEMOGLOBIN 7.8 g/dl (14.0-17.9); LYMPHOCYTES # (AUTO) 0.2 X10'3 (1.1-4.8); LYMPHOCYTES % (AUTO) 1.1 % (21-51); MEAN CORPUSCULAR HEMOGLOBIN 27.8 PG (27.0-31.0); MEAN CORPUSCULAR HGB CONC 34.7 g/dL (33.0-36.5); MEAN PLATELET VOLUME 9.1 FL (7.4-10.4); MONOCYTES # (AUTO) 0.4 X10'3 (0-0.9); MONOCYTES % (AUTO) 2.3 % (2-12); NEUTROPHILS % (AUTO) 96.4 % (42-75); PLATELET COUNT 336 X10'3 (140-440); RED CELL DISTRIBUTION WIDTH 33.6 % (11.5-14.5); WHITE BLOOD COUNT 18.7 X10'3 (4.5-11.0)
[2020-06-22 02:39] LABS: ALANINE AMINOTRANSFERASE 130 U/L (12-78); ALBUMIN 1.4 G/DL (3.4-5.0); ALKALINE PHOSPHATASE 309 IU/L (46-116); ANION GAP 16 (8-16); BILIRUBIN,TOTAL 7.3 MG/DL (0.1-1.0); BLOOD UREA NITROGEN 111 MG/DL (7-18); BUN/CREATININE RATIO 42.2 (5.4-32.0); CALCIUM 7.1 MG/DL (8.5-10.1); CHLORIDE 92 MMOL/L (99-107); CREATININE 2.63 MG/DL (0.60-1.10); GLUCOSE 228 MG/DL (70-104); MAGNESIUM 1.6 MG/DL (1.5-2.4); SODIUM 125 MMOL/L (135-145); TOTAL CARBON DIOXIDE 17.3 MMOL/L (24-32); eGFR 24 ML/MIN
[2020-06-22 02:40] LABS: ASPARTATE AMINO TRANSFERASE 82 U/L (10-37); PHOSPHORUS 4.3 MG/DL (2.3-4.5); POTASSIUM 4.3 MMOL/L (3.5-5.1); TOTAL PROTEIN 4.3 G/DL (6.4-8.2)
[2020-06-22 02:41] LABS: ALBUMIN/GLOBULIN RATIO 0.5 (1.1-1.5)
[2020-06-22] MEDS: ipratropium/albuterol 3ml nebule NEB SCH ×6 (02:45→23:10)
[2020-06-22 03:17] LABS: ANISOCYTOSIS 3+; PLATELET ESTIMATE NORMAL; TARGET CELLS FEW
[2020-06-22 03:18] LABS: BURR CELLS 1+
[2020-06-22 04:10] LABS: ABG BASE EXCESS -9.6 mmol/L (-2.0-2.0); ABG HCO3 16.9 mmol/L (22.0-26.0); ABG OXYGEN SATURATION 94.3 % (94-97); ABG PCO2 (T) 37.6 mmHg (35.0-48.0); ABG PO2 (T) 74.7 mmHg (75.0-100.0); FCOHb 0.9 % (0.0-3.9); FMetHb 0.3 % (0.0-1.5); FO2Hb 93.2 % (94-97); PEEP 5 cm H2O; RESPIRATORY RATE 22 b/min; TIDAL VOLUME 600 mL; TOTAL HEMOGLOBIN 8.3 G/dl (14.0-18.0)
[2020-06-22] MEDS: amiodarone/D5 360MG/200ML BAG 200 ML IV SCH ×4 (04:56→19:39)
[2020-06-22] MEDS: budesonide 0.5mg/2ml UD nebule IH SCH ×2 (07:18→19:31)
[2020-06-22] MEDS: hydrocortisone sod succ/PF 100mg/2ml inj. IV SCH ×2 (07:50→20:01)
[2020-06-22] MEDS: methylnaltrexone br 12mg/0.6ml inj***SubQ only SQ SCH (07:50)
[2020-06-22] MEDS: pantoprazole 40 MG vial IV SCH (07:50)
[2020-06-22] MEDS: lactobacillus rhamnosus 10,000 MMU CELLS/CAPSULE GT SCH ×2 (07:50→20:01)
[2020-06-22] MEDS: MEROPENEM 500MG/50ML-NS IVPB 50 ML IV SCH (07:51)
[2020-06-22] MEDS ORDERED: heparin 1,000unit/ml 10ml vial 10 ML IV ONE (08:00)
[2020-06-22] MEDS ORDERED: epoetin 20,000 units/ml inj IV ONE (08:00)
[2020-06-22] MEDS ORDERED: heparin 1,000 units/ml 10ml inj HE ONE ×2 (08:00)
[2020-06-22] MEDS ORDERED: normal saline 1000ml 250 ML IV PRN (08:00)
[2020-06-22] MEDS: micafungin inj 150 MG in normal saline 100ml IV soln 100 ML IV SCH (09:38)
--- NOTE | 2020-06-22 09:53 | NUR ---
notified Dr. Contreras that pt has similar bilious fluid, that Dr. Alarcon noted in abdomen yesterday, leaking from suture site of the GJ tube and from abdomen. Abdominal wound vac was reinforced by bin packer at bedside.
--- NOTE | 2020-06-22 11:25 | NUR ---
Reassessment: Tolerating custom TPN at goal rate, tolerating trickle tube feeding into jejunum with vital high protein at 30 ml/hr; Pending TDC placement today. Tube feeding consult: OK with surgeon to start trickle feeds into jejunum. Recommendations: 1) Continuous custom TPN to provide: 170 g 10% AA, 385 g D70 (2.73 mg/kg/min), 30 g 20% intralipids, and 2289 total kcal with goal rate no higher than 100 mL/hr 2) Prealbumin and TG q Thursday and 3) Daily weights 4) Routine opioid antagonist per MD 5) Trickle tube feedings using vital high protein at 30 ml/hr Addendum: 06/22/20 at [address] Amended: Links added.
[2020-06-22] MEDS: midazolam 100mg in NS 100ml 100 ML IV PRN (11:39)
[2020-06-22] MEDS: linezolid 600mg/300ml PREMIX 300 ML IV SCH ×2 (11:40→20:01)
--- NOTE | 2020-06-22 18:18 | NUR ---
Patient report given, questions answered & plan of care reviewed with Kaylan FERGUSON.
--- NOTE | 2020-06-22 18:20 | NUR ---
Patient in room CICU 2007. I have received report from Corie FERGUSON and had the opportunity to ask questions and assume patient care.
[2020-06-22] MEDS: insulin glargine (Lantus) pen - multi-dose SQ SCH (20:50)
[2020-06-23] VITALS (39 sets, daily range): BP systolic 87–156; BP diastolic 42–76
[2020-06-23] MEDS: morphine/NS 100mg/100ml bag 100 ML IV SCH (01:35)
[2020-06-23 02:37] LABS: BASOPHILS % (AUTO) 0.1 % (0-1); EOSINOPHILS % (AUTO) 0.1 % (0-6); HEMOGLOBIN 7.5 g/dl (14.0-17.9); LYMPHOCYTES # (AUTO) 0.2 X10'3 (1.1-4.8); MEAN CORPUSCULAR HEMOGLOBIN 27.4 PG (27.0-31.0); MEAN CORPUSCULAR HGB CONC 34.6 g/dL (33.0-36.5); MEAN CORPUSCULAR VOLUME 79.1 FL (78-98); MEAN PLATELET VOLUME 9.2 FL (7.4-10.4); MONOCYTES # (AUTO) 0.6 X10'3 (0-0.9); MONOCYTES % (AUTO) 2.7 % (2-12); NEUTROPHILS # (AUTO) 19.7 X10'3 (1.8-7.7); NEUTROPHILS % (AUTO) 96.1 % (42-75); PLATELET COUNT 336 X10'3 (140-440); RED BLOOD COUNT 2.75 X10'6 (4.70-6.10); RED CELL DISTRIBUTION WIDTH 34.2 % (11.5-14.5); WHITE BLOOD COUNT 20.5 X10'3 (4.5-11.0)
[2020-06-23 02:48] LABS: ALBUMIN 1.4 G/DL (3.4-5.0); ANION GAP 14 (8-16); BILIRUBIN,TOTAL 6.9 MG/DL (0.1-1.0); BLOOD UREA NITROGEN 83 MG/DL (7-18); BUN/CREATININE RATIO 41.7 (5.4-32.0); CALCIUM 7.6 MG/DL (8.5-10.1); CHLORIDE 95 MMOL/L (99-107); CREATININE 1.99 MG/DL (0.60-1.10); GLUCOSE 133 MG/DL (70-104); MAGNESIUM 1.7 MG/DL (1.5-2.4); SODIUM 131 MMOL/L (135-145); TOTAL CARBON DIOXIDE 22.2 MMOL/L (24-32); eGFR 33 ML/MIN
[2020-06-23 02:49] LABS: ALANINE AMINOTRANSFERASE 163 U/L (12-78); ALKALINE PHOSPHATASE 374 IU/L (46-116); ASPARTATE AMINO TRANSFERASE 81 U/L (10-37); HEMATOCRIT 21.7 % (42.0-52.0)
[2020-06-23 02:53] LABS: ALBUMIN/GLOBULIN RATIO 0.4 (1.1-1.5); PHOSPHORUS 2.5 MG/DL (2.3-4.5); POTASSIUM 3.5 MMOL/L (3.5-5.1); TOTAL PROTEIN 4.6 G/DL (6.4-8.2)
[2020-06-23] MEDS: mineral oil/petrolatum ophthal oint EACHEYE SCH ×4 (02:58→21:04)
[2020-06-23 03:36] LABS: ANISOCYTOSIS 3+; HYPOCHROMASIA 1+; MICROCYTOSIS 1+; PLATELET ESTIMATE NORMAL; POLYCHROMASIA FEW; TARGET CELLS 1+; TOTAL CELLS COUNTED 100
[2020-06-23] MEDS: ipratropium/albuterol 3ml nebule NEB SCH ×6 (03:50→23:24)
[2020-06-23 04:30] LABS: ABG BASE EXCESS -2.8 mmol/L (-2.0-2.0); ABG HCO3 22.4 mmol/L (22.0-26.0); ABG OXYGEN SATURATION 94.5 % (94-97); ABG PCO2 (T) 40.4 mmHg (35.0-48.0); ABG PO2 (T) 75.5 mmHg (75.0-100.0); FCOHb 0.8 % (0.0-3.9); FO2Hb 93.7 % (94-97); PEEP 5 cm H2O; RESPIRATORY RATE 22 b/min; TIDAL VOLUME 600 mL
[2020-06-23] MEDS: amiodarone/D5 360MG/200ML BAG 200 ML IV SCH ×5 (04:46→19:55)
[2020-06-23] MEDS: midazolam 100mg in NS 100ml 100 ML IV PRN (05:25)
--- NOTE | 2020-06-23 06:20 | NUR ---
Problems reprioritized. Patient report given, questions answered & plan of care reviewed with Zainab FERGUSON.
--- NOTE | 2020-06-23 06:20 | NUR ---
Patient in room CICU 2007. I have received report from Kaylan FERGUSON and had the opportunity to ask questions and assume patient care.
[2020-06-23] MEDS: NORepinephrine 8mg/ 250ml NS 250 ML IV SCH ×2 (06:37→20:32)
[2020-06-23] MEDS: CALCIUM GLUCONATE IV SCH ×8 (06:38)
[2020-06-23] MEDS: [UNRECOGNIZED DRUG - OTHER] IV SCH ×8 (06:38)
[2020-06-23] MEDS: MAGNESIUM SULF IV SCH ×8 (06:38)
[2020-06-23] MEDS: budesonide 0.5mg/2ml UD nebule IH SCH ×2 (07:10→19:31)
[2020-06-23] MEDS: pantoprazole 40 MG vial IV SCH (08:09)
[2020-06-23] MEDS: hydrocortisone sod succ/PF 100mg/2ml inj. IV SCH (08:09)
[2020-06-23] MEDS: MEROPENEM 500MG/50ML-NS IVPB 50 ML IV SCH (08:10)
[2020-06-23] MEDS: lactobacillus rhamnosus 10,000 MMU CELLS/CAPSULE GT SCH ×2 (08:10→20:00)
[2020-06-23] MEDS: insulin regular, human U-100 3ml vial - multi-dose SQ SCH ×2 (08:22→15:17)
[2020-06-23] MEDS: micafungin inj 150 MG in normal saline 100ml IV soln 100 ML IV SCH (08:50)
[2020-06-23] MEDS: linezolid 600mg/300ml PREMIX 300 ML IV SCH (09:41)
[2020-06-23] MEDS ORDERED: heparin 1,000unit/ml 10ml vial 10 ML ONE (10:59)
[2020-06-23] MEDS ORDERED: LIDOcaine 1%/PF 5ML 10 MG/ML VIAL ONE (10:59)
[2020-06-23] MEDS ORDERED: NORMAL SALINE PO ONE (13:00)
[2020-06-23] MEDS ORDERED: METHYLENE BLUE PO ONE ×3 (13:00→14:20)
[2020-06-23] MEDS ORDERED: iohexol 350MG/ML 100ml bottle IV ONE (13:12)
[2020-06-23] MEDS ORDERED: DEXTROSE 5% PO ONE ×2 (13:40→14:20)
[2020-06-23] MEDS ORDERED: WATER PO ONE ×2 (13:40→14:20)
[2020-06-23] MEDS: diatr meglu/diatrizoate 30ml oral sol.-(3 dose) bottle PO SCH ×3 (14:36→21:00)
--- NOTE | 2020-06-23 18:35 | NUR ---
Patient in room CICU 2007. I have received report from PHYLLIS Lamb and had the opportunity to ask questions and assume patient care. Patient back from CT at change of shift. Wound vac to wall suction, Bilateral Chest tubes to suction, negative air leak noted. Patient with J-G tube; G-tube to suction. J-tube with tube feeding running. Patient has a trach and is on ventilator AC/PRVC 45% FiO2, PEEP 5, Rate 22, VT 600. air sampling and monitoring showing normal sinus rhythm at 58. IV medications infusing per MD order, refer to IV Spreadsheet for medications and rates.
--- NOTE | 2020-06-23 18:41 | NUR ---
Problems reprioritized. Patient report given, questions answered & plan of care reviewed with Dianna FERGUSON.
--- NOTE | 2020-06-23 19:30 | NUR ---
[place] red blood noted to wound vac suction. total of 250ml. epic beacon specialists notified. Suction to wound vac turned off. epic beacon specialists called Dr. Cameron. Labs ordered, type and screen. Tory Gannon NP at bedside.
[2020-06-23 20:04] LABS: BASOPHILS % (AUTO) 0.2 % (0-1); EOSINOPHILS % (AUTO) 0.2 % (0-6); HEMOGLOBIN 7.2 g/dl (14.0-17.9); LYMPHOCYTES # (AUTO) 0.3 X10'3 (1.1-4.8); LYMPHOCYTES % (AUTO) 1.6 % (21-51); MEAN CORPUSCULAR HEMOGLOBIN 26.9 PG (27.0-31.0); MEAN CORPUSCULAR HGB CONC 34.7 g/dL (33.0-36.5); MEAN CORPUSCULAR VOLUME 77.6 FL (78-98); MEAN PLATELET VOLUME 8.8 FL (7.4-10.4); MONOCYTES # (AUTO) 0.5 X10'3 (0-0.9); MONOCYTES % (AUTO) 2.7 % (2-12); NEUTROPHILS # (AUTO) 18.8 X10'3 (1.8-7.7); NEUTROPHILS % (AUTO) 95.3 % (42-75); PLATELET COUNT 320 X10'3 (140-440); RED BLOOD COUNT 2.69 X10'6 (4.70-6.10); RED CELL DISTRIBUTION WIDTH 34.9 % (11.5-14.5); WHITE BLOOD COUNT 19.7 X10'3 (4.5-11.0)
--- NOTE | 2020-06-23 20:10 | NUR ---
[place] red blood noted to G-TUBE. Suction turned off. Dr. Cameron called and notified of Hgb 7.1, Hct 20.9. Call in the OR per Dr. Cameron and order for 3 units PRBC.
[2020-06-23 20:12] LABS: HEMATOCRIT 20.9 % (42.0-52.0)
--- NOTE | 2020-06-23 20:13 | NUR ---
LAB Critical Hgb: 7.1 Hct: 20.9 Coleen Gannon PROBATION OFFICER at bedside 3 units PRBC ordered to be infused per . OR informed per .
[2020-06-23 20:18] LABS: PARTIAL THROMBOPLASTIN TIME 34 SECONDS (22-32)
[2020-06-23 20:21] LABS: ALANINE AMINOTRANSFERASE 179 U/L (12-78); ALBUMIN 1.4 G/DL (3.4-5.0); ALBUMIN/GLOBULIN RATIO 0.4 (1.1-1.5); ALKALINE PHOSPHATASE 393 IU/L (46-116); ANION GAP 14 (8-16); ASPARTATE AMINO TRANSFERASE 81 U/L (10-37); BILIRUBIN,TOTAL 6.8 MG/DL (0.1-1.0); BLOOD UREA NITROGEN 108 MG/DL (7-18); BUN/CREATININE RATIO 48.6 (5.4-32.0); CALCIUM 7.6 MG/DL (8.5-10.1); CHLORIDE 94 MMOL/L (99-107); CREATININE 2.22 MG/DL (0.60-1.10); GLUCOSE 137 MG/DL (70-104); POTASSIUM 3.6 MMOL/L (3.5-5.1); SODIUM 130 MMOL/L (135-145); TOTAL CARBON DIOXIDE 22.3 MMOL/L (24-32); TOTAL PROTEIN 4.6 G/DL (6.4-8.2); eGFR 29 ML/MIN
[2020-06-23] MEDS ORDERED: albumin (Human) 5% 250ml 250 ML IV ONE ×3 (20:58→21:32)
[2020-06-23] MEDS ORDERED: rocuronium 10mg/ml inj IV ONE ×2 (20:59→21:20)
[2020-06-23] MEDS ORDERED: [UNRECOGNIZED DRUG - OTHER] IV SCH ×8 (21:00)
[2020-06-23] MEDS ORDERED: albumin (Human) 5% 250ml 500 ML IV ONE (21:00)
[2020-06-23] MEDS: insulin glargine (Lantus) pen - multi-dose SQ SCH (21:00)
[2020-06-23] MEDS ORDERED: CALCIUM GLUCONATE IV SCH ×8 (21:00)
[2020-06-23] MEDS ORDERED: TOTAL PARENTERAL NUTRITION IV SCH ×8 (21:00)
[2020-06-23] MEDS ORDERED: amiodarone in dextrose, iso-osm 150mg/100ml bag IV ONE (21:20)
[2020-06-23] MEDS ORDERED: sevoflurane 250ml liquid IH ONE (21:20)
[2020-06-23] MEDS ORDERED: NORepinephrine 8 MG in NS 250 ML BAG (32 mcg/ml) IV ONE (21:20)
--- NOTE | 2020-06-23 21:22 | NUR ---
Patient to OR
[2020-06-23] MEDS ORDERED: ePHEDrine 50MG/ML INJ. ONE (21:42)
[2020-06-23] MEDS ORDERED: calcium chloride 100 MG/1 ML inj IV ONE (22:21)
--- NOTE | 2020-06-23 23:00 | NUR ---
Patient back from OR. Report from Dr. Nur and PHYLLIS Brooks. Patient remains on the ventilator, sedated, FiO2 40%. Patients abdomen is closed. Per report was closed with 3 lap pads in abdomen. All drains and tubes removed in OR. Bilateral Chest tubes remain. Surgical wound is covered with island dressing, clean, dry and intact. Punctures from tubes from abdomen covered with transparent dressing. right and left chest tube reconnected to suction, no air leak noted. Post op vital signs in progress. Per Dr. Nur complete infusion of last unit of PRBC's and the 2 pooled Cryoprecipitate. Re-draw labs after infusion of blood products are complete.
[2020-06-24] VITALS (31 sets, daily range): BP systolic 84–136; BP diastolic 36–66
[2020-06-24] MEDS: hydrocortisone sod succ/PF 100mg/2ml inj. IV SCH ×3 (00:01→19:57)
[2020-06-24] MEDS: MAGNESIUM SULF IV SCH ×16 (00:23→21:26)
[2020-06-24] MEDS: [UNRECOGNIZED DRUG - OTHER] IV SCH ×16 (00:23→21:26)
[2020-06-24] MEDS: CALCIUM GLUCONATE IV SCH ×16 (00:23→21:26)
[2020-06-24 01:27] LABS: HEMATOCRIT 25.4 % (42.0-52.0); MONOCYTES # (AUTO) 0.8 X10'3 (0-0.9); MONOCYTES % (AUTO) 3.1 % (2-12); RED BLOOD COUNT 3.02 X10'6 (4.70-6.10)
[2020-06-24 01:29] LABS: BASOPHILS # (AUTO) 0.1 X10'3 (0-0.2); BASOPHILS % (AUTO) 0.3 % (0-1); EOSINOPHILS # (AUTO) 0.1 X10'3 (0-0.9); EOSINOPHILS % (AUTO) 0.2 % (0-6); HEMOGLOBIN 8.8 g/dl (14.0-17.9); LYMPHOCYTES # (AUTO) 0.4 X10'3 (1.1-4.8); LYMPHOCYTES % (AUTO) 1.6 % (21-51); MEAN CORPUSCULAR HEMOGLOBIN 29.1 PG (27.0-31.0); MEAN CORPUSCULAR HGB CONC 34.6 g/dL (33.0-36.5); MEAN CORPUSCULAR VOLUME 84.1 FL (78-98); MEAN PLATELET VOLUME 9.2 FL (7.4-10.4); NEUTROPHILS # (AUTO) 26.1 X10'3 (1.8-7.7); NEUTROPHILS % (AUTO) 94.8 % (42-75); PLATELET COUNT 226 X10'3 (140-440); RED CELL DISTRIBUTION WIDTH 21.2 % (11.5-14.5)
[2020-06-24 01:32] LABS: WHITE BLOOD COUNT 27.5 X10'3 (4.5-11.0)
[2020-06-24 01:40] LABS: ALANINE AMINOTRANSFERASE 128 U/L (12-78); ALBUMIN 1.7 G/DL (3.4-5.0); ALKALINE PHOSPHATASE 249 IU/L (46-116); ANION GAP 12 (8-16); ASPARTATE AMINO TRANSFERASE 74 U/L (10-37); BILIRUBIN,TOTAL 6.6 MG/DL (0.1-1.0); BLOOD UREA NITROGEN 109 MG/DL (7-18); BUN/CREATININE RATIO 49.1 (5.4-32.0); CALCIUM 7.6 MG/DL (8.5-10.1); CHLORIDE 95 MMOL/L (99-107); CREATININE 2.22 MG/DL (0.60-1.10); GLUCOSE 209 MG/DL (70-104); MAGNESIUM 1.6 MG/DL (1.5-2.4); SODIUM 130 MMOL/L (135-145); TOTAL CARBON DIOXIDE 22.7 MMOL/L (24-32); eGFR 29 ML/MIN
[2020-06-24] MEDS: insulin regular, human U-100 3ml vial - multi-dose SQ SCH ×4 (01:45→20:14)
[2020-06-24] MEDS: amiodarone/D5 360MG/200ML BAG 200 ML IV SCH ×4 (01:46→20:11)
[2020-06-24] MEDS: mineral oil/petrolatum ophthal oint EACHEYE SCH ×4 (01:46→19:56)
[2020-06-24 01:54] LABS: ALBUMIN/GLOBULIN RATIO 0.7 (1.1-1.5); PHOSPHORUS 3.6 MG/DL (2.3-4.5); POTASSIUM 3.8 MMOL/L (3.5-5.1)
--- NOTE | 2020-06-24 03:00 | NUR ---
Bella kelly applied to patient temp 35.8. Midline abdominal surgical dressing reinforced with abd pad and tape. drainage is viscous and rust in color.
[2020-06-24 03:09] LABS: ANISOCYTOSIS 3+; BURR CELLS FEW; HYPOCHROMASIA 2+; PLATELET ESTIMATE NORMAL; TARGET CELLS 2+; TOTAL CELLS COUNTED 100
[2020-06-24 03:10] LABS: POIKILOCYTOSIS 1+; POLYCHROMASIA FEW
[2020-06-24] MEDS: ipratropium/albuterol 3ml nebule NEB SCH ×6 (03:25→23:09)
[2020-06-24 04:11] LABS: ABG BASE EXCESS -5.9 mmol/L (-2.0-2.0); ABG HCO3 21.3 mmol/L (22.0-26.0); ABG OXYGEN SATURATION 87.7 % (94-97); ABG PCO2 (T) 47.9 mmHg (35.0-48.0); ABG PO2 (T) 51.8 mmHg (75.0-100.0); FCOHb 0.5 % (0.0-3.9); FMetHb 0.3 % (0.0-1.5); PATIENT TEMPERATURE 35.8; PEEP 5 cm H2O; RESPIRATORY RATE 22 b/min; TIDAL VOLUME 600 mL; TOTAL HEMOGLOBIN 9.5 G/dl (14.0-18.0)
--- NOTE | 2020-06-24 05:39 | NUR ---
SpO2 88% despite increasing FiO2. Lung sounds are course and wet. Chest x-ray obtained this morning. November Jagdeep, FAYE notified. Order to increase FiO2 to maintain SpO2 greater than 90% If a FiO2 of 70% is reached increase PEEP to 8. Repeat hemogram ordered for 0700.
--- NOTE | 2020-06-24 06:15 | NUR ---
Patient in room CICU 2007. I have received report from ALLEGRA FERGUSON and had the opportunity to ask questions and assume patient care. PT HAD MORPHINE, VERSED, AMIO AND TPN RUNNING. VSS. LARGE AMOUNT OF DRAINAGE FROM MIDLINE INCISION POST SURGERY. PICC, CL AND TDC IN PLACE. PT APPEARS COMFORTABLE.
--- NOTE | 2020-06-24 06:48 | NUR ---
Problems reprioritized. Patient report given, questions answered & plan of care reviewed with Mckayla RN and PHYLLIS Malone.
[2020-06-24] MEDS: budesonide 0.5mg/2ml UD nebule IH SCH ×2 (07:10→19:27)
[2020-06-24 07:48] LABS: ALANINE AMINOTRANSFERASE 144 U/L (12-78); ALBUMIN 1.5 G/DL (3.4-5.0); ALBUMIN/GLOBULIN RATIO 0.6 (1.1-1.5); ALKALINE PHOSPHATASE 237 IU/L (46-116); ANION GAP 10 (8-16); ASPARTATE AMINO TRANSFERASE 93 U/L (10-37); BILIRUBIN,TOTAL 7.1 MG/DL (0.1-1.0); BLOOD UREA NITROGEN 110 MG/DL (7-18); BUN/CREATININE RATIO 56.1 (5.4-32.0); CALCIUM 7.1 MG/DL (8.5-10.1); CHLORIDE 99 MMOL/L (99-107); CREATININE 1.96 MG/DL (0.60-1.10); GLUCOSE 127 MG/DL (70-104); POTASSIUM 3.5 MMOL/L (3.5-5.1); SODIUM 131 MMOL/L (135-145); TOTAL CARBON DIOXIDE 21.9 MMOL/L (24-32); TOTAL PROTEIN 3.9 G/DL (6.4-8.2); eGFR 34 ML/MIN
[2020-06-24 07:48] LABS: BASOPHILS # (AUTO) 0.3 X10'3 (0-0.2); BASOPHILS % (AUTO) 0.7 % (0-1); EOSINOPHILS % (AUTO) 0.1 % (0-6); HEMATOCRIT 24.2 % (42.0-52.0); HEMOGLOBIN 8.4 g/dl (14.0-17.9); LYMPHOCYTES # (AUTO) 0.9 X10'3 (1.1-4.8); LYMPHOCYTES % (AUTO) 2.5 % (21-51); MEAN CORPUSCULAR HEMOGLOBIN 29.1 PG (27.0-31.0); MEAN CORPUSCULAR HGB CONC 34.9 g/dL (33.0-36.5); MEAN CORPUSCULAR VOLUME 83.3 FL (78-98); MEAN PLATELET VOLUME 9.2 FL (7.4-10.4); MONOCYTES # (AUTO) 0.8 X10'3 (0-0.9); MONOCYTES % (AUTO) 2.3 % (2-12); NEUTROPHILS % (AUTO) 94.4 % (42-75); PLATELET COUNT 241 X10'3 (140-440); RED CELL DISTRIBUTION WIDTH 20.2 % (11.5-14.5)
[2020-06-24 07:50] LABS: WHITE BLOOD COUNT 33.9 X10'3 (4.5-11.0)
[2020-06-24] MEDS: lactobacillus rhamnosus 10,000 MMU CELLS/CAPSULE GT SCH ×2 (08:00→18:38)
--- NOTE | 2020-06-24 08:30 | NUR ---
CALLED DR ULRICH TO LET HIM KNOW OF WEEPING AND LARGE AMOUNT OF DRAINAGE COMING FROM MIDLINE INCISION. ORDER GIVEN FOR 1 UNIT PRBC. NO OTHER ORDERS GIVEN. WILL CONTINUE TO MONITOR.
[2020-06-24] MEDS: pantoprazole 40 MG vial IV SCH (08:38)
[2020-06-24] MEDS: methylnaltrexone br 12mg/0.6ml inj***SubQ only SQ SCH (08:38)
[2020-06-24] MEDS: MEROPENEM 500MG/50ML-NS IVPB 50 ML IV SCH (08:40)
[2020-06-24] MEDS: linezolid 600mg/300ml PREMIX 300 ML IV SCH ×3 (08:41→21:23)
[2020-06-24] MEDS: micafungin inj 150 MG in normal saline 100ml IV soln 100 ML IV SCH (08:41)
[2020-06-24] MEDS: NORepinephrine 8mg/ 250ml NS 250 ML IV SCH ×2 (09:02→20:22)
--- NOTE | 2020-06-24 10:43 | NUR ---
F/u (06/24): Pt s/p urgent return to OR last night for acute hemorrhage from his wound. GJ removed during OR per RN today. To continue custom TPN. Will continue to monitor. Recommendations: 1) Continuous custom TPN to provide: 170 g 10% AA, 385 g D70 (2.73 mg/kg/min), 30 g 20% intralipids, and 2289 total kcal with goal rate no higher than 100 mL/hr 2) Prealbumin and TG q Thursday and 3) Daily weights 4) Routine opioid antagonist per MD Addendum: 06/24/20 at [address] Amended: Links added.
[2020-06-24] MEDS ORDERED: normal saline 1000ml 100 ML IV PRN (11:28)
[2020-06-24] MEDS ORDERED: normal saline 1000ml 250 ML IV PRN (11:28)
[2020-06-24] MEDS ORDERED: epoetin 20,000 units/ml inj IV ONE (11:30)
[2020-06-24] MEDS ORDERED: heparin 1,000 units/ml 10ml inj HE ONE ×2 (11:35)
[2020-06-24] MEDS: midazolam 100mg in NS 100ml 100 ML IV PRN (14:40)
--- NOTE | 2020-06-24 18:30 | NUR ---
Patient in room CICU 2007. I have received report from Mckayla FERGUSON and Kira RN and had the opportunity to ask questions and assume patient care. Patient currently receiving dialysis, case mgr at bedside. Patient on ventilator FiO2 50%, SpO2 94 %. Patient is not responsive during care or assessment. Bella Hugger blanket removed secondary to temperature 37.5 oral. IV medications infusing per MD order, see IV spreadsheet for rates.
--- NOTE | 2020-06-24 20:00 | NUR ---
Current blood glucose 84mg/dL. Patient did not receive Lantus on 06/23 and is currently at level 4. Patient had a change in his diet yesterday : tube feed was stopped, currently only on TPN. November Jagdeep, FAYE made aware of current status and blood glucose. No change in orders, okay to give Lantus at 12 units tonight and treat with regular insulin per protocol.
[2020-06-24] MEDS: insulin glargine (Lantus) pen - multi-dose SQ SCH (20:18)
--- NOTE | 2020-06-24 22:00 | NUR ---
Surgical dressing and puncture sites dressings reinforced secondary to continuous drainage. Bed bath completed.
[2020-06-25] VITALS (18 sets, daily range): BP systolic 89–131; BP diastolic 41–54
[2020-06-25] MEDS: morphine/NS 100mg/100ml bag 100 ML IV SCH (00:31)
[2020-06-25] MEDS: mineral oil/petrolatum ophthal oint EACHEYE SCH ×3 (02:14→12:51)
[2020-06-25] MEDS: dextrose 50%-water 50ml dispensing syringe IV PRN (02:15)
[2020-06-25] MEDS: amiodarone/D5 360MG/200ML BAG 200 ML IV SCH ×3 (02:21→12:41)
--- NOTE | 2020-06-25 02:30 | NUR ---
0210 Blood glucose 64 mg/dL. Hypoglcemic protocol followed, orders in eMAR. 25g Dextrose 50% administered. recheck at 0230 blood glucose 103 mg/dL. Will continue to monitor.
[2020-06-25 03:13] LABS: EOSINOPHILS % (AUTO) 0.1 % (0-6); MEAN CORPUSCULAR HGB CONC 34.5 g/dL (33.0-36.5); MEAN PLATELET VOLUME 8.9 FL (7.4-10.4)
[2020-06-25 03:18] LABS: BASOPHILS % (AUTO) 0.1 % (0-1); HEMATOCRIT 25.9 % (42.0-52.0); LYMPHOCYTES # (AUTO) 0.6 X10'3 (1.1-4.8); LYMPHOCYTES % (AUTO) 2.3 % (21-51); MEAN CORPUSCULAR HEMOGLOBIN 29.1 PG (27.0-31.0); MEAN CORPUSCULAR VOLUME 84.2 FL (78-98); MONOCYTES # (AUTO) 0.3 X10'3 (0-0.9); MONOCYTES % (AUTO) 1.4 % (2-12); NEUTROPHILS # (AUTO) 24.1 X10'3 (1.8-7.7); NEUTROPHILS % (AUTO) 96.1 % (42-75); PLATELET COUNT 187 X10'3 (140-440); RED BLOOD COUNT 3.08 X10'6 (4.70-6.10); RED CELL DISTRIBUTION WIDTH 21.9 % (11.5-14.5)
[2020-06-25] MEDS: ipratropium/albuterol 3ml nebule NEB SCH ×4 (03:22→15:51)
[2020-06-25 03:28] LABS: WHITE BLOOD COUNT 25.1 X10'3 (4.5-11.0)
[2020-06-25 03:30] LABS: ALANINE AMINOTRANSFERASE 178 U/L (12-78); ALBUMIN 1.4 G/DL (3.4-5.0); ALKALINE PHOSPHATASE 291 IU/L (46-116); ANION GAP 8 (8-16); ASPARTATE AMINO TRANSFERASE 111 U/L (10-37); BILIRUBIN,TOTAL 8.1 MG/DL (0.1-1.0); BLOOD UREA NITROGEN 73 MG/DL (7-18); BUN/CREATININE RATIO 48.3 (5.4-32.0); CALCIUM 7.6 MG/DL (8.5-10.1); CHLORIDE 98 MMOL/L (99-107); CREATININE 1.51 MG/DL (0.60-1.10); GLUCOSE 62 MG/DL (70-104); MAGNESIUM 1.6 MG/DL (1.5-2.4); PREALBUMIN 19.2 MG/DL (19-36); SODIUM 133 MMOL/L (135-145); TOTAL CARBON DIOXIDE 27.1 MMOL/L (24-32); eGFR 46 ML/MIN
[2020-06-25 03:33] LABS: ALBUMIN/GLOBULIN RATIO 0.5 (1.1-1.5); PHOSPHORUS 2.5 MG/DL (2.3-4.5); POTASSIUM 3.5 MMOL/L (3.5-5.1); TOTAL PROTEIN 4.2 G/DL (6.4-8.2); TRIGLYCERIDES 179 MG/DL (20-135)
[2020-06-25 04:06] LABS: ABG BASE EXCESS -1.3 mmol/L (-2.0-2.0); ABG OXYGEN SATURATION 95.3 % (94-97); ABG PCO2 (T) 42.9 mmHg (35.0-48.0); ABG PO2 (T) 76.5 mmHg (75.0-100.0); FCOHb 0.5 % (0.0-3.9); FMetHb 0.2 % (0.0-1.5); FO2Hb 94.6 % (94-97); RESPIRATORY RATE 22 b/min; TIDAL VOLUME 600 mL; TOTAL HEMOGLOBIN 9.1 G/dl (14.0-18.0)
[2020-06-25 04:09] LABS: ANISOCYTOSIS 3+; NUCLEATED RED BLOOD CELLS 6 /100WBC (0-0); PLATELET ESTIMATE NORMAL; TOTAL CELLS COUNTED 100
[2020-06-25 04:10] LABS: BURR CELLS 3+; POIKILOCYTOSIS 1+; POLYCHROMASIA FEW; TARGET CELLS 2+
--- NOTE | 2020-06-25 06:32 | NUR ---
Problems reprioritized. Patient report given, questions answered & plan of care reviewed with Mckayla RN and PHYLLIS Malone.
[2020-06-25] MEDS: budesonide 0.5mg/2ml UD nebule IH SCH (06:53)
--- NOTE | 2020-06-25 07:07 | NUR ---
Patient in room CICU 2007. I have received report from ALLEGRA FERGUSON and had the opportunity to ask questions and assume patient care.
[2020-06-25] MEDS: hydrocortisone sod succ/PF 100mg/2ml inj. IV SCH (07:51)
[2020-06-25] MEDS: pantoprazole 40 MG vial IV SCH (07:51)
[2020-06-25] MEDS: lactobacillus rhamnosus 10,000 MMU CELLS/CAPSULE GT SCH (07:56)
[2020-06-25] MEDS: micafungin inj 150 MG in normal saline 100ml IV soln 100 ML IV SCH (07:57)
[2020-06-25] MEDS: MEROPENEM 500MG/50ML-NS IVPB 50 ML IV SCH (07:57)
[2020-06-25] MEDS: linezolid 600mg/300ml PREMIX 300 ML IV SCH (07:57)
[2020-06-25] MEDS: NORepinephrine 8mg/ 250ml NS 250 ML IV SCH (07:58)
--- NOTE | 2020-06-25 11:40 | NUR ---
Reassessment: Pt tolerating custom PN at goal. S/p urgent OR for acute hemorrhage 1.5-2L blood w/ clot and bleeding via G-tube site per EMR. GJ removed; no longer on EN. Last colostomy output 150ml 06/23 per I&O. TG 179 this AM; will monitor for further results and lipid alterations as medically indicated. Pending transfer to [place] if possible per technical staff engineer at rounds today. Will continue to monitor. Recommendations: 1) Continuous custom TPN to provide: 170 g 10% AA, 385 g D70 (2.73 mg/kg/min), 30 g 20% intralipids, and 2289 total kcal with goal rate no higher than 100 mL/hr 2) Prealbumin and TG q Thursday and 3) Daily weights 4) Routine opioid antagonist per Addendum: 06/25/20 at [address] Amended: Links added.
[2020-06-25] MEDS ORDERED: gentamicin 40 MG/1 ML inj ONE (12:21)
[2020-06-25] MEDS ORDERED: clindamycin phosphate 150mg/ml inj. ONE (12:21)
[2020-06-25] MEDS ORDERED: ENOX30DI4 SUBCUT (14:09)
[2020-06-25] MEDS ORDERED: BUDE0.5A3 IH (14:09)
[2020-06-25] MEDS ORDERED: METH12DI SQ (14:09)
[2020-06-25] MEDS ORDERED: PANT40VI2 IV (14:09)
[2020-06-25] MEDS ORDERED: ZYV600I IV (14:09)
[2020-06-25] MEDS ORDERED: [UNRECOGNIZED DRUG - CODE] IV (14:09)
[2020-06-25] MEDS ORDERED: MERO500P IV (14:09)
[2020-06-25] MEDS ORDERED: MICA100V4 IV (14:09)
[2020-06-25] MEDS ORDERED: ALBU2.5V7 NEB (14:09)
[2020-06-25] MEDS ORDERED: IPRA3AMP9 NEB (14:09)
[2020-06-25] MEDS: insulin regular, human U-100 3ml vial - multi-dose SQ SCH (14:15)
--- NOTE | 2020-06-25 17:56 | NUR ---
RE[place] CALL[place] ARGELIA FERGUSON [place] [facility] [place]SP[place] TEAM ARRIVED TO ACCEPT PT, ALL DRIPS AND VENT SWITCHED TO TRANSPORT EQUIPMENT. VSS ON DISCHARGE. ART LINE, CL, PICC, [address]UBES IN PLACE AND FUNCTIONING PROPERLY. ALL HOSPITAL MEDICATIONS DISCONTINUED AND CONVERTED TO TRANSPORT COMPANY DRUGS. DAUGHTER AND RECEIVING FACILITY AWARE TRANSPORT IN ROUTE.
[2020-06-27] MEDS ORDERED: [UNRECOGNIZED DRUG - OTHER] IV SCH ×9 (21:00)
[2020-06-27] MEDS ORDERED: CALCIUM GLUCONATE IV SCH ×9 (21:00)
[2020-06-27] MEDS ORDERED: TOTAL PARENTERAL NUTRITION IV SCH ×9 (21:00)
== END 2020-06-25 19:28 | disposition short-term general hospital (02) | DRG 3 ==
LOC: UNDOADMIN 11:00 → SUR 3N 11:00 → CICU 2S 05-24 15:44
PROVIDERS: ADMIT Surgery; ATTEND Surgery
PROC: 0DBL0ZZ Excision of Transverse Colon, Open Approach (ICD-10-PCS; 2020-05-24)
PROC: 0D1 Gastrointestinal System, Bypass (ICD-10-PCS; 2020-05-24)
PROC: 5A1955Z Respiratory Ventilation, Greater than 96 Consecutive Hours (ICD-10-PCS; 2020-05-24)
PROC: 8E0W0CZ Robotic Assisted Procedure of Trunk Region, Open Approach (ICD-10-PCS; 2020-05-24)
PROC: 0W9900Z Drainage of Right Pleural Cavity with Drainage Device, Open Approach (ICD-10-PCS; 2020-05-24)
PROC: 03HY32Z Insertion of Monitoring Device into Upper Artery, Percutaneous Approach (ICD-10-PCS; 2020-05-24)
PROC: 4A133B1 Monitoring of Arterial Pressure, Peripheral, Percutaneous Approach (ICD-10-PCS; 2020-05-24)
PROC: 4A133J1 Monitoring of Arterial Pulse, Peripheral, Percutaneous Approach (ICD-10-PCS; 2020-05-24)
PROC: 02HV33Z Insertion of Infusion Device into Superior Vena Cava, Percutaneous Approach (ICD-10-PCS; 2020-05-24)
PROC: B548ZZA Ultrasonography of Superior Vena Cava, Guidance (ICD-10-PCS; 2020-05-24)
PROC: 0DX Gastrointestinal System, Transfer (ICD-10-PCS; principal; 2020-05-24 09:59)
PROC: 30233N1 Transfusion of Nonautologous Red Blood Cells into Peripheral Vein, Percutaneous Approach (ICD-10-PCS; 2020-05-27)
PROC: 06HY33Z Insertion of Infusion Device into Lower Vein, Percutaneous Approach (ICD-10-PCS; 2020-05-27)
PROC: BW251ZZ Computerized Tomography (CT Scan) of Chest, Abdomen and Pelvis using Low Osmolar Contrast (ICD-10-PCS; 2020-05-29)
PROC: 0D1L0Z4 Bypass Transverse Colon to Cutaneous, Open Approach (ICD-10-PCS; 2020-05-31)
PROC: 0W9H0ZZ Drainage of Retroperitoneum, Open Approach (ICD-10-PCS; 2020-06-04)
PROC: 0DJ60ZZ Inspection of Stomach, Open Approach (ICD-10-PCS; 2020-06-06)
PROC: 5A1D70Z Performance of Urinary Filtration, Intermittent, Less than 6 Hours Per Day (ICD-10-PCS; 2020-06-06)
PROC: 2W13X6Z Compression of Abdominal Wall using Pressure Dressing (ICD-10-PCS; 2020-06-09)
PROC: 5A1D90Z Performance of Urinary Filtration, Continuous, Greater than 18 hours Per Day (ICD-10-PCS; 2020-06-10)
PROC: 0FBG0ZZ Excision of Pancreas, Open Approach (ICD-10-PCS; 2020-06-12)
PROC: 0B110F4 Bypass Trachea to Cutaneous with Tracheostomy Device, Open Approach (ICD-10-PCS; 2020-06-13)
PROC: 0DQ40ZZ Repair Esophagogastric Junction, Open Approach (ICD-10-PCS; 2020-06-14)
PROC: 5A1D70Z Performance of Urinary Filtration, Intermittent, Less than 6 Hours Per Day (ICD-10-PCS; 2020-06-14)
PROC: 02HV33Z Insertion of Infusion Device into Superior Vena Cava, Percutaneous Approach (ICD-10-PCS; 2020-06-14)
PROC: B548ZZA Ultrasonography of Superior Vena Cava, Guidance (ICD-10-PCS; 2020-06-14)
PROC: 5A1D70Z Performance of Urinary Filtration, Intermittent, Less than 6 Hours Per Day (ICD-10-PCS; 2020-06-16)
PROC: 0DQ50ZZ Repair Esophagus, Open Approach (ICD-10-PCS; 2020-06-19)
PROC: 0WQF0ZZ Repair Abdominal Wall, Open Approach (ICD-10-PCS; 2020-06-19)
PROC: 0DHA0UZ Insertion of Feeding Device into Jejunum, Open Approach (ICD-10-PCS; 2020-06-19)
PROC: 0WQF0ZZ Repair Abdominal Wall, Open Approach (ICD-10-PCS; 2020-06-20)
PROC: 5A1D70Z Performance of Urinary Filtration, Intermittent, Less than 6 Hours Per Day (ICD-10-PCS; 2020-06-20)
PROC: 0WQF0ZZ Repair Abdominal Wall, Open Approach (ICD-10-PCS; 2020-06-21)
PROC: 5A1D70Z Performance of Urinary Filtration, Intermittent, Less than 6 Hours Per Day (ICD-10-PCS; 2020-06-22)
PROC: 0W3J0ZZ Control Bleeding in Pelvic Cavity, Open Approach (ICD-10-PCS; 2020-06-23)
PROC: 30233M1 Transfusion of Nonautologous Plasma Cryoprecipitate into Peripheral Vein, Percutaneous Approach (ICD-10-PCS; 2020-06-23)
PROC: 5A1D70Z Performance of Urinary Filtration, Intermittent, Less than 6 Hours Per Day (ICD-10-PCS; 2020-06-24)
DX: C18.4 Malignant neoplasm of transverse colon (principal); A41.9 Sepsis, unspecified organism; K65.1 Peritoneal abscess; R65.21 Severe sepsis with septic shock; K65.9 Peritonitis, unspecified; J96.01 Acute respiratory failure with hypoxia; K22.3 Perforation of esophagus; K85.90 Acute pancreatitis without necrosis or infection, unspecified; N17.9 Acute kidney failure, unspecified; J44.1 Chronic obstructive pulmonary disease with (acute) exacerbation; E87.2 Acidosis; T81.32XA Disruption of internal operation (surgical) wound, not elsewhere classified, initial encounter; Z16.24 Resistance to multiple antibiotics; J93.82 Other air leak; K91.89 Other postprocedural complications and disorders of digestive system; K44.9 Diaphragmatic hernia without obstruction or gangrene; D50.9 Iron deficiency anemia, unspecified; B96.20 Unspecified Escherichia coli [E. coli] as the cause of diseases classified elsewhere; I48.91 Unspecified atrial fibrillation; G89.29 Other chronic pain; M54.9 Dorsalgia, unspecified; K21.9 Gastro-esophageal reflux disease without esophagitis; Y83.2 Surgical operation with anastomosis, bypass or graft as the cause of abnormal reaction of the patient, or of later complication, without mention of misadventure at the time of the procedure; Z53.31 Laparoscopic surgical procedure converted to open procedure; Z79.51 Long term (current) use of inhaled steroids; Z83.3 Family history of diabetes mellitus; Z87.891 Personal history of nicotine dependence; Z79.899 Other long term (current) drug therapy
CPT/HCPCS: 36415; 36430; 36558; 36573; 36600; 71045; 71250; 71260; 74176; 74177; 76775; 76937; 77001; 80047; 80048; 80053; 80069; 80076; 80202; 81001; 82140; 82150; 82330; 82378; 82570; 82728; 82803; 82810; 82948; 83036; 83540; 83550; 83605; 83690; 83735; 84100; 84132; 84133; 84134; 84145; 84156; 84300; 84439; 84443; 84478; 84484; 84540; 85007; 85008; 85018; 85025; 85027; 85379; 85384; 85610; 85730; 86885; 86900; 86901; 86920; 87040; 87070; 87075; 87077; 87081; 87088; 87186; 87207; 87340; 87635; 88304; 90935; 93005; 94002; 94003; 94640; 94760; A4215; A4421; A4618; A4649; A6253; A6258; A6266; A6402; A6449; A6550; A7000; A7048; A7521; B4087; C1751; C1758; C1781; C9113; C9250; E1594; G0378; J0131; J0610; J0690; J0692; J0694; J1100; J1250; J1450; J1580; J1644; J1650; J1720; J1756; J1815; J1940; J1956; J2001; J2020; J2150; J2185; J2212; J2248; J2250; J2270; J2370; J2405; J2543; J2704; J2710; J2920; J2930; J3010; J3370; J3475; J3480; J3490; J7030; J7040; J7050; J7060; J7070; J7120; J7131; J7512; J7626; P9012; P9016; P9045; P9047; Q4081; Q9963; Q9967; Q9968